=== PATIENT | male | born 1960 | race Caucasian/White ===

== ENCOUNTER → 2017-04-28 | Day surgery (SDC) | payer OTHER ==
[2017-04-21 13:10] VITALS: Ht 167.6 cm; Wt 79.5 kg
[~2017-04-28] VITALS: Ht 167.6 cm; Wt 79.5 kg
[~2017-04-28] MED LIST: ASPCH81X PO; CHOL1TAB76 PO; FURO-85 PO; LIDOCAINE HCL 2% 2 ML VIAL (20MG/ML) ONE; MYCO360T PO; OMEP20CA9 PO; PRED-301 PO; PROPOFOL IV EMULSION 10 MG/ML 20 ML VIAL IV ONE; SODIUM CHLORIDE 0.9% 500ML 500 ML IV ONE; TACR1CAP PO
--- NOTE | 2017-04-28 08:51 | Endo History and Physical ---
History & Physical Date of Service: Apr 28, 2017. Chief Complaint: screening,history of transplant Referring Physician: Dr. Guy Thomson History of Present Illness family history Past Medical History Diabetes, Arthritis, Reflux, Sleep Apnea, Hypertension, Kidney Disease, Other Past Surgical History Hx Cardiac Surgery: Yes (HEART CATH X 2 PRIOR TO TX/NO STENTS PLACED) Hx Internal Defibrillator: No Hx Pacemaker: No Hx Abdominal Surgery: Yes (STEFAN) Hx of Implantable Prosthesis: No Hx Post-Op Nausea and Vomiting: No Hx Cancer Surgery: No Hx Thoracic Surgery: No Hx Orthopedic: No (RT LIEN) Hx Urinary Tract Surgery: Yes (PANCREAS AND KIDNEY(X2) TRANSPLANT) Family History Colon CA Social History Smoking Status: Never Smoker Hx Substance Use: No Hx Alcohol Use: Yes (OCCASIONALLY) Allergies Coded Allergies: Cephalexin (Verified Allergy, Unknown, RASH, 04/21/17) Penicillins (Verified Allergy, Unknown, RASH, 04/21/17) Current Medications Reported Home Medications Medications Dose Route/Sig Max Daily Dose Days Date Category Dose Instructions Prograf (Tacrolimus) 1 Mg Cap 1 Mg PO DIRECTED 04/21/17 Reported TAKES 1 TAB BID (5XWK) TAKES WEDNESDAY AND FRIDAYS 1TAB IN AM AND 0.5TAB IN PM Prednisone 5 Mg Tab 5 Mg PO HS 04/21/17 Reported Aspirin Chewable (Aspirin) 81 Mg Chew 81 Mg PO HS 04/21/17 Reported Lasix (Furosemide) 20 Mg Tab 20 Mg PO QAM 02/24/17 Reported D 2000 (Cholecalciferol) 2,000 Unit Tab 2,000 Units PO BID 02/24/17 Reported Myfortic (Mycophenolate Sodium) 360 Mg Tab 360 Mg PO TID 06/24/15 Reported Prilosec (Omeprazole) 20 Mg Cap 20 Mg PO DAILY PRN 03/19/12 Reported Vital Signs Weight (Kilograms): 79.55 Height (Feet): 5 Height (Inches): 6 Date Time Temp Pulse Resp B/P (MAP) Pulse Ox O2 Delivery O2 Flow Rate FiO2 04/28/17 08:15 36.4 64 20 151/68 (95) 99 Room Air Physical Exam General Appearance: WD/WN, no apparent distress Assessment and Plan colonoscopy today
--- NOTE | 2017-04-28 09:20 | Discharge Instructions ---
Endoscopy Patient Instructions Date / Procedure(s) Performed Apr 28, 2017. Colonoscopy Allergy Information Coded Allergies: Cephalexin (Verified Allergy, Unknown, RASH, 04/21/17) Penicillins (Verified Allergy, Unknown, RASH, 04/21/17) Discharge Date / Findings Apr 28, 2017. normal colon Medication Instructions Stopped Medication(s): stopped ASA Wednesday Restart Stopped Medication(s): OK to resume all medications as above Provider Instructions Activity Restrictions - No exercising or heavy lifting for 24 hours. - Do not drink alcohol the day of the procedure. - Do not drive a car or operate machinery until the day after the procedure. - Do not make any important decisions or sign important papers in 24 hours after the procedure. Following Day: - Return to full activity which may include returning to work/school. Diet Start your diet with liquids and light foods (jello, soup, juice, toast). Then eat your usual diet if not nauseated. Treatment For Common After Affects For mild abdominal pain, bloating, or excessive gas: - Rest - Eat lightly - Lie on right side Follow-Up Information Follow-up with Dr. Guy Thomson as scheduled Anesthesia Information What You Should Know You have had a procedure that required some medicine to reduce anxiety and discomfort. This treatment is called moderate sedation. After receiving the treatment, you may be sleepy, but you will be able to breathe on your own. The effects of the treatment may last for several hours. Follow these instructions along with Activity/Diet recommendations noted above: * Do NOT do anything where dizziness or clumsiness would be dangerous. * Rest quietly at home today, then you can be up and about tomorrow. * Have a responsible person stay with you the rest of today. * You may have had an I.V. today. If so, you may take the dressing off later today. Recommendations Call your doctor if: * Trouble breathing * Continuous vomiting for more than 24 hours * Temperature above 101 degrees * Severe abdominal pain or bloating * Pain not relieved by pain medicine ordered * There is increased drainage or redness from any incision * A large amount of rectal bleeding greater than 2-3 tablespoons. (If you had a polyp/s removed or have hemorrhoids, a small amount of blood - from the rectum is to be expected.) * You have any unanswered questions or concerns. IN THE EVENT OF A SERIOUS EMERGENCY, GO TO THE NEAREST EMERGENCY ROOM Your discharge instructions were prepared by provider Acacia Carr. Patient Instructions Signature Page Kwame Jewell Patient (or Guardian) Signature/Date: I have read and understand the instructions given to me by my caregivers. Caregiver/RN/Doctor Signature/Date: The above-named patient and/or guardian has received patient instructions on this date. + Original Patient Signature Page (only) stays with chart. Please make copy for patient.
--- NOTE | 2017-04-28 09:24 | GI REPORT ---
Procedure Date: 04/28/2017 8:12 AM Procedure: Colonoscopy Indications: Screening in patient at increased risk: Colorectal cancer in mother 60 or older; history of kidney and pancreas transplant Medicines: Propofol per Anesthesia Complications: No immediate complications. Estimated blood loss: None. Estimated Blood Loss: Estimated blood loss: none. Procedure: Pre-Anesthesia Assessment: - Prior to the procedure, a History and Physical was performed, and patient medications, allergies and sensitivities were reviewed. The patient's tolerance of previous anesthesia was reviewed. - The risks and benefits of the procedure and the sedation options and risks were discussed with the patient. All questions were answered and informed consent was obtained. - Patient identification and proposed procedure were verified prior to the procedure by the physician and the nurse. The procedure was verified in the pre-procedure area in the procedure room. - Mental Status Examination: alert and oriented. Airway Examination: normal oropharyngeal airway and neck mobility. Respiratory Examination: clear to auscultation. CV Examination: normal. Abdominal Examination: bowel sounds present, abdomen soft and non-tender, no masses or organomegaly noted. - ASA Grade Assessment: III - A patient with severe systemic disease. After I obtained informed consent, the scope was passed under direct vision. Throughout the procedure, the patient's blood pressure, pulse, and oxygen saturations were monitored continuously. The Scope was introduced through the anus and advanced to the cecum, identified by appendiceal orifice and ileocecal valve. The colonoscopy was performed without difficulty. The patient tolerated the procedure well. The quality of the bowel preparation was good. Findings: The perianal and digital rectal examinations were normal. Pertinent negatives include normal sphincter tone and no palpable rectal lesions. The entire examined colon appeared normal on direct and retroflexion views. Impression: - The entire examined colon is normal on direct and retroflexion views. - No specimens collected. Recommendation: - Repeat colonoscopy in 3 years for screening purposes. - Return to referring physician as previously scheduled. - Discharge patient to home. Acacia Carr D.O. Acacia Carr DO 04/28/2017 9:22:57 AM This report has been signed electronically. Note Initiated On: 04/28/2017 8:12 AM I attest to the content of the Intraoperative Record and orders documented therein, exceptions below
[2017-04-28 09:52] VITALS: BP 153/71; PULSE 70; O2SAT 99
--- NOTE | 2017-04-28 09:58 | Anesthesiology Progress Note ---
Anesthesia Post Op Note Date & Time Apr 28, 2017 at 09:58 Vital Signs Pain Intensity: 0 Vital Signs Past 12 Hours Date Time Temp Pulse Resp B/P (MAP) Pulse Ox O2 Delivery O2 Flow Rate FiO2 04/28/17 09:52 70 20 153/71 (98) 99 Room Air 04/28/17 09:38 70 20 139/70 (93) 100 Room Air 04/28/17 09:23 70 16 109/51 (70) 98 Room Air 04/28/17 08:15 36.4 64 20 151/68 (95) 99 Room Air Notes Mental Status: alert / awake / arousable, participated in evaluation Pt Amnestic to Procedure: Yes Nausea / Vomiting: adequately controlled Pain: adequately controlled Airway Patency, RR, SpO2: stable & adequate BP & HR: stable & adequate Hydration State: stable & adequate Anesthetic Complications: no major complications apparent
== END | disposition home or self-care (01) ==
LOC: C.GI 07:31
PROVIDERS: ATTEND Internal Medicine
DX: Z12.11 Encounter for screening for malignant neoplasm of colon (principal); K21.9 Gastro-esophageal reflux disease without esophagitis; E11.9 Type 2 diabetes mellitus without complications; G47.30 Sleep apnea, unspecified; N28.9 Disorder of kidney and ureter, unspecified; Z79.899 Other long term (current) drug therapy; Z79.82 Long term (current) use of aspirin; Z79.52 Long term (current) use of systemic steroids; Z94.83 Pancreas transplant status; Z94.0 Kidney transplant status

== ENCOUNTER 2017-07-04 20:13 | Inpatient (IN) | payer OTHER ==
[~2017-07-04] VITALS: Ht 167.6 cm; Wt 80.4 kg
[~2017-07-04 20:13] MED LIST changes: -CHOL1TAB76 PO; -LIDOCAINE HCL 2% 2 ML VIAL (20MG/ML) ONE; -OMEP20CA9 PO; -PROPOFOL IV EMULSION 10 MG/ML 20 ML VIAL IV ONE; -SODIUM CHLORIDE 0.9% 500ML 500 ML IV ONE
[2017-07-04] MEDS ORDERED: OMEP20CA9 PO (20:19)
[2017-07-04] MEDS ORDERED: PIOG1TAB25 PO (20:38)
[2017-07-04] MEDS ORDERED: MRLP527 PO (20:38)
[2017-07-04] MEDS ORDERED: LSX20 PO (20:38)
[2017-07-04] MEDS ORDERED: PRED-301 PO (20:38)
[2017-07-04] MEDS ORDERED: DOCU100C PO (20:38)
[2017-07-04] MEDS ORDERED: ASPI81TA28 PO (20:40)
[2017-07-04] MEDS ORDERED: TACR0.5C3 PO (20:44)
[2017-07-04] MEDS ORDERED: TACR1CAP PO (20:44)
[2017-07-04] MEDS ORDERED: SODIUM CHLORIDE 0.9% 1000ML 1,000 ML IV ONE (20:45)
[2017-07-04] MEDS ORDERED: ALBUT/IPRATROP 3MG/0.5MG NEB 3 ML VIAL INH STA (20:48)
[2017-07-04] MEDS ORDERED: METHYLPREDNISOLONE 125 MG VIAL IV STA (21:07)
--- NOTE | 2017-07-04 21:08 | DIAGNOSTIC IMAGING REPORT ---
CHEST ONE VIEW PORTABLE CLINICAL HISTORY: cough fever immunosuppressed COMPARISON STUDY: 02/24/2017 FINDINGS: The cardiac and mediastinal contours are normal. There is no evidence of focal pulmonary consolidation. There is no evidence of failure. No pleural effusions are visualized.[ There is minor left basilar atelectasis. There is a vascular stent present in the left subclavian region. IMPRESSION: No active disease in the chest. Electronically signed by: Cr Sierra M.D. 07/04/2017 9:07 PM Dictated Date/Time: 07/04/2017 9:06 PM
[2017-07-04] MEDS ORDERED: LEVAQUIN 750MG / 150ML D5W IV ONE (21:15)
[2017-07-04] MEDS ORDERED: ACETAMINOPHEN 500 MG TAB PO STA (21:44)
[2017-07-04] MEDS ORDERED: AZTREONAM IV 1,000 MG in DEXTROSE 5% 100ML 100 ML IV STA (21:48)
[2017-07-04] MEDS ORDERED: VANCOMYCIN IV 1,000 MG in SODIUM CHLORIDE 0.9% 250ML 250 ML IV STA (21:48)
[2017-07-04 21:59] LABS: HEMATOCRIT 42.8 % (42-52); HEMOGLOBIN 14.4 g/dL (14.0-18.0); MEAN CELL VOLUME 90.7 fL (80-100); MEAN CORPUSCULAR HEMOGLOBIN 30.5 pg (25-34); MEAN CORPUSCULAR HGB CONC 33.6 g/dl (32-36); MEAN PLATELET VOLUME 10.4 fL (7.4-10.4); PLATELET COUNT 143 K/uL (130-400); RED CELL DISTRIBUTION WIDTH CV 13.6 % (11.5-14.5); RED CELL DISTRIBUTION WIDTH SD 45.1 fL (36.4-46.3); WHITE BLOOD COUNT 10.74 K/uL (4.8-10.8)
[2017-07-04 21:59] LABS: INFLUENZA A PCR Neg for Influ A (NEG); INFLUENZA B PCR Neg for Influ B (NEG)
[2017-07-04] MEDS ORDERED: VANCOMYCIN CONSULT ACTIVE PRN ×2 (22:00→23:45)
[2017-07-04 22:09] LABS: ALBUMIN 3.8 gm/dl (3.4-5.0); CALCIUM 9.2 mg/dl (8.5-10.1); CREATININE 1.43 mg/dl (0.60-1.40); POTASSIUM 3.9 mmol/L (3.5-5.1)
--- NOTE | 2017-07-04 22:11 | EMERGENCY ROOM VISIT NOTE ---
History First contact with patient: 20:21 Chief Complaint: FEVER Stated Complaint: FEVER, COUGH, CONGESTION History of Present Illness The patient is a 56 year old male who presents to the Emergency Room with complaints of productive cough and fever that has been brewing for the last week. His symptoms started with a nonproductive cough. He developed a fever earlier this week. It was as high as 101F. The patient has not taken any [id number] medications for his symptoms. He is feeling slightly short of breath. He denies any nausea or vomiting. His last bowel movement was today and reportedly regular. He denies any urinary symptoms. The patient has a history of a renal transplant in 2011 and a pancreatic transplant in 2004. He takes Prograf. Review of Systems 10 system review performed and negative unless noted in HPI or below Past Medical/Surgical History Medical Problems: (1) Diabetes mellitus type 1 (2) ESRD (end stage renal disease) on dialysis (3) Hypertension (4) Indigestion (5) Sepsis (6) Vision loss Surgical Problems: (1) History of kidney transplant (2) History of pancreas transplant Family History FHx: diabetes FHx: heart disease FHx: hypertension FHx: kidney disease/stones Social History Smoking Status: Never Smoker Alcohol Use: none Marital Status: Housing Status: lives with family Occupation Status: disabled Current/Historical Medications Scheduled Aspirin (Aspirin Ec), 81 MG PO DAILY Cholecalciferol (D 1999), 2,000 INTER.UNIT PO BID Furosemide (Furosemide), 20 MG PO QAM Mycophenolate Sodium (Myfortic), 360 MG PO TID Pioglitazone Hcl (Pioglitazone Hcl), 15 MG PO QAM Prednisone (Prednisone), 5 MG PO HS Tacrolimus (Prograf), 1 MG PO QAM Tacrolimus (Prograf), 0.5 MG PO 3XWK Tacrolimus (Prograf), 1 MG PO 4XWK Scheduled PRN Docusate Sodium (Stool Softener), 100 MG PO BID PRN for Constipation Omeprazole (Prilosec), 20 MG PO DAILY PRN for Acid Reflux Polyethylene (Polyethylene Glycol 3350), 17 GM PO DAILY PRN for Constipation Physical Exam Vital Signs Date Time Temp Pulse Resp B/P (MAP) Pulse Ox O2 Delivery O2 Flow Rate FiO2 07/04/17 22:24 94 07/04/17 22:18 92 22 135/67 95 Room Air 07/04/17 20:15 38.8 88 18 112/59 92 Room Air Physical Exam GENERAL: 56-year-old male, appears older than stated age, acutely ill in appearance, SKIN: The skin was warm HEAD: Normocephalic atraumatic. MOUTH: Mucous membranes moderately dry. Slight exudate noted on the tongue. Tonsils are not enlarged. Pharynx without erythema or exudate. Uvula midline. Airway patent. Tongue does not deviate. NECK: Supple without nuchal rigidity. No lymphadenopathy. Cervical spine is nontender. No JVD. HEART: Regular rate and rhythm without murmurs gallops or rubs. LUNGS: Mild diffuse wheezing throughout. Positive tachypnea. Rhonchorous breath sounds at the right base. ABDOMEN: Positive bowel sounds x 4.Soft, nontender, without organomegaly. No guarding or rebound tenderness. MUSCULOSKELETAL: No muscle atrophy, erythema, or edema noted. Strength 5/5 throughout. NEURO: Patient was alert and oriented to person place and time. Normal sensation to touch. No focal neurological deficits. Medical Decision & Procedures ER Provider Diagnostic Interpretation: Chest x-ray IMPRESSION: No active disease in the chest. Electronically signed by: Cr Sierra M.D. 07/04/2017 9:07 PM Dictated Date/Time: 07/04/2017 9:06 PM Laboratory Results 07/04/17 21:38 Red Blood Count 4.72, Mean Corpuscular Volume 90.7, Mean Corpuscular Hemoglobin 30.5, Mean Corpuscular Hemoglobin Concent 33.6, Mean Platelet Volume 10.4, Neutrophils (%) (Auto) 82.7, Lymphocytes (%) (Auto) 6.2, Monocytes (%) (Auto) 10.6, Eosinophils (%) (Auto) 0.0, Basophils (%) (Auto) 0.0, Neutrophils # (Auto ) 8.88, Lymphocytes # (Auto) 0.67, Monocytes # (Auto) 1.14, Eosinophils # (Auto ) 0.00, Basophils # (Auto) 0.00 07/04/17 21:38 Test 07/04/17 21:13 07/04/17 21:38 07/04/17 22:45 Influenza Type A (RT-PCR) Neg for Influ A (NEG) Influenza Type B (RT-PCR) Neg for Influ B (NEG) White Blood Count 10.74 K/uL (4.8-10.8) Red Blood Count 4.72 M/uL (4.7-6.1) Hemoglobin 14.4 g/dL (14.0-18.0) Hematocrit 42.8 % (42-52) Mean Corpuscular Volume 90.7 fL (80-100) Mean Corpuscular Hemoglobin 30.5 pg (25-34) Mean Corpuscular Hemoglobin Concent 33.6 g/dl (32-36) Platelet Count 143 K/uL (130-400) Mean Platelet Volume 10.4 fL (7.4-10.4) Neutrophils (%) (Auto) 82.7 % Lymphocytes (%) (Auto) 6.2 % Monocytes (%) (Auto) 10.6 % Eosinophils (%) (Auto) 0.0 % Basophils (%) (Auto) 0.0 % Neutrophils # (Auto) 8.88 K/uL (1.4-6.5) Lymphocytes # (Auto) 0.67 K/uL (1.2-3.4) Monocytes # (Auto) 1.14 K/uL (0.11-0.59) Eosinophils # (Auto) 0.00 K/uL (0-0.5) Basophils # (Auto) 0.00 K/uL (0-0.2) RDW Standard Deviation 45.1 fL (36.4-46.3) RDW Coefficient of Variation 13.6 % (11.5-14.5) Immature Granulocyte % (Auto) 0.5 % Immature Granulocyte # (Auto) 0.05 K/uL (0.00-0.02) Red Blood Cell Morphology Unremarkable Anion Gap 12.0 mmol/L (3-11) Est Creatinine Clear Calc Drug Dose 57.5 ml/min Estimated GFR () 63.0 Estimated GFR (Non- 54.4 BUN/Creatinine Ratio 14.0 (10-20) Lactic Acid Level 1.4 mmol/L (0.4-2.0) Calcium Level 9.2 mg/dl (8.5-10.1) Total Bilirubin 1.0 mg/dl (0.2-1) Aspartate Amino Transf (AST/SGOT) 16 U/L (15-37) Alanine Aminotransferase (ALT/SGPT) 18 U/L (12-78) Alkaline Phosphatase 79 U/L (45-117) C-Reactive Protein 5.41 mg/dl (0-0.29) Total Protein 7.4 gm/dl (6.4-8.2) Albumin 3.8 gm/dl (3.4-5.0) Globulin 3.6 gm/dl (2.5-4.0) Albumin/Globulin Ratio 1.0 (0.9-2) Lipase 70 U/L (73-393) Medications Administered Medications (Trade) Dose Ordered Sig/Refugio Route Start Time Stop Time Status Last Admin Dose Admin Sodium Chloride 1,000 ml @ 999 mls/hr Q1H1M ONCE IV 07/04/17 20:45 07/04/17 21:45 DC 07/04/17 21:54 999 MLS/HR Albuterol/ Ipratropium (Duoneb) 3 ml ONE STAT INH 07/04/17 20:48 07/04/17 20:49 DC 07/04/17 21:54 3 ML Methylprednisolone Sodium Succinate (Solu-Medrol IV) 125 mg NOW STAT IV 07/04/17 21:07 07/04/17 21:08 DC 07/04/17 21:57 125 MG Levofloxacin (Levaquin / D5W) 750 mg NOW ONCE IV 07/04/17 21:15 07/04/17 21:16 DC 07/04/17 21:58 750 MG Acetaminophen (Tylenol Tab) 1,000 mg NOW STAT PO 07/04/17 21:44 07/04/17 21:45 DC 07/04/17 22:14 1,000 MG ECG Per My Interpretation Indication: other Rate (beats per minute): 78 Rhythm: normal sinus Change: no significant change ED Course Patient was seen and examined Vital signs including blood pressure were reviewed medications list was verified with patient Labs were obtained, and a saline lock was established The patient was put on a monitor. An EKG was performed and reviewed. The patient was given an albuterol/ipratropium treatment. He was given Solu- Medrol 125 mg IV. He was given Levaquin 750 mg IV, aztreonam 1 g IV and vancomycin 1 g IV The case was discussed with my supervising physician who personally evaluated the patient. Upon reevaluation, the patient was feeling no better. I thoroughly reviewed the results with the patient and the patient's significant other. They voiced understanding. I discussed the case with case management and subsequently the [facility] service. They kindly agreed to keep the patient for further workup and treatment Medical Decision Differential diagnosis: Influenza, other viral syndrome, sepsis, pneumonia This patient is a 56-year-old male, history of renal/pancreatic transplant, the presents with fever and cough. On exam, he was acutely ill and febrile. Oxygen was 92% on room air. Rhonchorous breath sounds noted at the right base. His workup reveals borderline leukocytosis. Renal function is slightly elevated. Baseline is usually 1.3. Today his creatinine is 1.4. He appears dehydrated. Chest x-ray was negative. His CRP is significantly elevated. Influenza was also negative. I believe this patient likely has a viral illness and early pneumonia. Given his immunocompromise state, I do not feel comfortable sending this patient home. He will be admitted for Sirs from a respiratory source. This chart was completed in part utilizing [employer] Speech Voice Recognition software. Attempts were made to minimize the grammatical errors, random word insertions, pronoun errors and incomplete sentences. Any formal questions or concerns about the content, text or information contained within the body of this dictation should be directly addressed to the provider for clarification. Medication Reconcilliation Current Medication List: was personally reviewed by me Blood Pressure Screening Patient's blood pressure: Normal blood pressure Impression Primary Impression: SIRS (systemic inflammatory response syndrome) Departure Information Referrals Guy Thomson M.D. (PCP) Patient Instructions My [facility]
[2017-07-04 22:12] LABS: TOTAL PROTEIN 7.4 gm/dl (6.4-8.2)
[2017-07-04] MEDS ORDERED: CHOL1TAB76 PO (22:15)
[2017-07-04 22:52] LABS: IG# 0.05 K/uL (0.00-0.02); LYMPH % 6.2 %; LYMPH ABS # 0.67 K/uL (1.2-3.4); MONO % 10.6 %; MONO ABS # 1.14 K/uL (0.11-0.59); NEUT % 82.7 %; NEUT ABS # 8.88 K/uL (1.4-6.5)
[2017-07-04] MEDS ORDERED: POLYETHYLENE (MIRALAX) 17 GM PACK PO PRN (23:30)
[2017-07-04] MEDS ORDERED: ONDANSETRON INJ 2 MG/ML 2 ML VIAL IV PRN (23:30)
[2017-07-04] MEDS ORDERED: DOCUSATE SODIUM 100 MG CAP PO PRN (23:30)
[2017-07-04] MEDS ORDERED: ACETAMINOPHEN 325 MG TAB PO PRN (23:30)
[2017-07-04] MEDS ORDERED: HYDROCODONE/HOMATROPINE SYRUP 5MG/1.5MG 5ML UDP PO ONE (23:34)
[2017-07-04] MEDS ORDERED: HYDROCODONE/HOMATROPINE SYRUP 5MG/1.5MG 5ML UDP PO PRN (23:45)
[2017-07-04] MEDS ORDERED: VANCOMYCIN IV 2,000 MG in SODIUM CHLORIDE 0.9% 500ML 500 ML IV STA (23:56)
[2017-07-05] MEDS ORDERED: IV FLUIDS COMPLETED PRN (01:00)
[2017-07-05 01:15] VITALS: BP 122/69; PULSE 84; TEMP 36.7; O2SAT 93; Ht 167.6 cm; Wt 80.4 kg
--- NOTE | 2017-07-05 01:54 | HISTORY & PHYSICAL EXAMINATION ---
DATE OF ADMISSION: 07/04/2017 PRIMARY CARE PHYSICIAN: Dr. Thomson. CHIEF COMPLAINT: Ongoing cough since Wednesday last with generalized weakness and tiredness. HISTORY OF PRESENT COMPLAINT: He is a 56-year-old immunocompromised patient secondary to renal and pancreatic transplant in the past. Apparently, he has been complaining of a cough that has been going on since Wednesday. He saw primary care physician, was given Z-MIKIE. He could take only 2 or 3 tablets, but the condition did not get any better with ongoing cough and lack of energy. He came to the Emergency Room for further evaluation. He was noted to have a fever of 101. In the ER, he was hemodynamically stable. He is still coughing a lot with the shortness of breath, but no decrease in saturation. His apparent blood test came back fairly unremarkable except creatinine is slightly high, but no other significant findings, but given the history of immunocompromised condition, he was started with broad-spectrum antibiotic and blood and urine culture was sent for further evaluation. PAST MEDICAL HISTORY: Significant for kidney and pancreatic transplant status, diabetes 1 causing renal disease, esophageal reflux, hyperlipidemia, hypertension, and also history of melanoma skin problem. PAST SURGICAL HISTORY: Significant for status post renal transplant, status post pancreatic transplant and total hip replacement on the right side. FAMILY HISTORY: Father has diabetes and mother has diabetes. Mother has heart disorder and hypertension as well. SOCIAL HISTORY: He is . He lives with his . He is legally blind. He uses alcohol occasionally. He has been reasonably ambulant. REVIEW OF SYSTEMS: Total 10-point review of system unremarkable. ALLERGIES: CEPHALEXIN AND PENICILLINS. MEDICATIONS: As an outpatient, he has been on furosemide 20 mg daily, aspirin 81 mg daily, cholecalciferol 2000 units daily, docusate sodium 1 tablet twice daily, Myfortic 360 mg 3 times daily, omeprazole 20 mg daily, pioglitazone 15 mg daily, MiraLax as directed, prednisone 5 mg daily, Prograf 0.5 mg 3 times a week, Prograf 1 mg 4 times a week, Prograf 1 mg q.a.m. PHYSICAL EXAMINATION: GENERAL: On examination in the Emergency Room, he was not having any acute distress. He was minimally short of breath at rest and no wheezing. He looked flushed. VITAL SIGNS: Temperature 38.8, pulse 94, blood pressure 135/67, saturation 95% on room air. HEENT: Unremarkable. NECK: Supple, no JVD, no bruit. CHEST: Very occasional rhonchi at the back. No crackles. HEART: S1, S2 regular. ABDOMEN: Soft, benign, nontender, no organomegaly. Bowel sounds present. EXTREMITIES: Negative for any edema. MUSCULOSKELETAL: Did not show acute arthritis. CENTRAL NERVOUS SYSTEM: Alert, awake, oriented x3 and no focal sensory and/or motor deficit appreciated. LABORATORY DATA: Noted today white count of 10.74, H&H 14.4/42.8, platelet was 143. Sodium 136, potassium 3.9, chloride 102, carbon dioxide 22, BUN 20, creatinine 1.43. Random glucose 152. Lactic acid 1.4. C-reactive protein 5.41 and procalcitonin 0.42. LFTs unremarkable. UA examination unremarkable. Influenza A and B negative. Chest x-ray no active disease in the chest. IMPRESSION AND PLAN: 1. Acute bronchitis with cough and whitish phlegm production since Wednesday. Being immunocompromised, he was started with intravenous vancomycin, Levaquin and also aztreonam. He did not finish the course of Z-MIKIE as an outpatient. Blood and urine culture has been sent. He meets the systemic inflammatory response syndrome criteria on admission. 2. Status post kidney and pancreatic transplant on immunocompromised suppressant medications including prednisone. We will continue with those at this time. 3. Acute kidney injury secondary to dehydration. We will give adequate amount of IV fluid and monitor PRP while in the hospital. 4. Diabetes on oral medications. Continue with that and will put him on sliding scale coverage while in the hospital. Hypertension is controlled. Gastrointestinal prophylaxis with proton-pump inhibitor. Deep venous thrombosis prophylaxis with heparin. Code status, full code. In my clinical assessment, the beneficiary meets criteria as per CMS for 2 midnights' stay in the hospital. MTDD
[2017-07-05] MEDS ORDERED: SODIUM CHLORIDE 0.9% 1000ML 1,000 ML IV SCH (02:00)
[2017-07-05] MEDS ORDERED: GLUCAGON FOR INJ 1 MG VIAL SQ PRN (07:15)
[2017-07-05] MEDS ORDERED: GLUCOSE 40% GEL 15 GM TUBE PO PRN (07:15)
[2017-07-05] MEDS ORDERED: DEXTROSE 50% 50 ML SYR IV PRN (07:15)
[2017-07-05] MEDS ORDERED: GLUCOSE 10 TABS/TUBE PO PRN (07:15)
[2017-07-05 07:36] LABS: HEMATOCRIT 43.5 % (42-52); HEMOGLOBIN 14.6 g/dL (14.0-18.0); MEAN CORPUSCULAR HEMOGLOBIN 30.5 pg (25-34); MEAN CORPUSCULAR HGB CONC 33.6 g/dl (32-36); MEAN PLATELET VOLUME 10.8 fL (7.4-10.4); PLATELET COUNT 134 K/uL (130-400); RED CELL DISTRIBUTION WIDTH CV 13.7 % (11.5-14.5); RED CELL DISTRIBUTION WIDTH SD 45.5 fL (36.4-46.3); WHITE BLOOD COUNT 9.51 K/uL (4.8-10.8)
[2017-07-05 07:42] LABS: INR 1.1 (0.9-1.1)
[2017-07-05 07:50] VITALS: BP 148/81; PULSE 72; TEMP 36.4; O2SAT 90
[2017-07-05 08:00] VITALS: O2SAT 90
[2017-07-05] MEDS ORDERED: INSULIN ASPART 100 UNITS/ML 3 ML PEN SC SCH (08:00)
[2017-07-05 08:13] LABS: CALCIUM 8.8 mg/dl (8.5-10.1); CREATININE 1.44 mg/dl (0.60-1.40); PHOSPHORUS 1.9 mg/dl (2.5-4.9); POTASSIUM 4.1 mmol/L (3.5-5.1)
--- NOTE | 2017-07-05 08:32 | DIAGNOSTIC IMAGING REPORT ---
CHEST 2 VIEWS ROUTINE HISTORY: 56 years-old Male r/o Pneumonia acute cough . COMPARISON: Chest radiograph 07/04/2017 TECHNIQUE: PA and lateral views of the chest FINDINGS: Cardiomediastinal and hilar silhouettes are within normal limits. There is no pneumothorax, pleural effusion, focal airspace consolidation or overt pulmonary edema. There is mild diaphragmatic flattening. Mild degenerative changes about the spine and shoulders. Stent graft within the region of the left subclavian vessels noted. Vascular calcifications of the upper abdomen. IMPRESSION: No acute process. The above report was generated using voice recognition software. It may contain grammatical, syntax or spelling errors. Electronically signed by: Ej Castelan M.D. 07/05/2017 8:31 AM Dictated Date/Time: 07/05/2017 8:28 AM
[2017-07-05] MEDS: MYCOPHENOLATE SODIUM 180 MG TAB PO SCH ×2 (08:40→13:43)
[2017-07-05] MEDS ORDERED: HEPARIN SOD 5000 UNIT/0.5 ML CARP SQ SCH (09:00)
[2017-07-05] MEDS ORDERED: TACROLIMUS 1 MG CAP PO SCH (09:00)
[2017-07-05] MEDS ORDERED: VANCOMYCIN IV 1,000 MG in SODIUM CHLORIDE 0.9% 250ML 250 ML IV SCH (09:00)
[2017-07-05] MEDS ORDERED: PIOGLITAZONE TAB 15 MG TAB PO SCH (09:00)
[2017-07-05] MEDS ORDERED: ASPIRIN 81 MG ECTAB PO SCH (09:00)
[2017-07-05] MEDS ORDERED: PANTOprazole SOD 40 MG TAB PO PRN (09:00)
[2017-07-05] MEDS ORDERED: CHOLECALCIFEROL 1000 INTER.UNIT TAB PO SCH (09:00)
[2017-07-05] MEDS ORDERED: AZTREONAM IV SCH (10:00)
[2017-07-05] MEDS ORDERED: DEXTROSE 5% IV SCH (10:00)
[2017-07-05] MEDS: INSULIN ASPART 100 UNITS/ML 3 ML PEN SC SCH ×2 (12:12→17:08)
--- NOTE | 2017-07-05 13:22 | Discharge Instructions ---
Discharge Instructions Date of Service Jul 05, 2017. Admission Reason for Admission: Acute Bronchitis, Immunocompromised Discharge Discharge Diagnosis / Problem: ACUTE BRONCHITIS /HX OF RENAL AND PANCREAS TRANSPLANT ON IMMUNOSUPPRESSION Discharge Goals Goal(s): Improve disease control, Diagnostic testing, Therapeutic intervention Activity Recommendations Activity Limitations: resume your previous activity . Instructions / Follow-Up Instructions / Follow-Up HOSPITAL FOLLOW UP : 07/07/2017 at 12:[address] Bronson Polanco MD [facility] Current Hospital Diet Patient's current hospital diet: Diabetes Type 2 Diet Discharge Diet Recommended Diet: Diabetes Type 2 Diet Pending Studies Studies pending at discharge: no Medical Emergencies . Who to Call and When: Medical Emergencies: If at any time you feel your situation is an emergency, please call 911 immediately. . Non-Emergent Contact Non-Emergency issues call your: Primary Care Provider . . "Provider Documentation" section prepared by Naila Ha. .
[2017-07-05] MEDS ORDERED: LEVALBUTEROL/IPRATROPIUM NEB INH ONE (13:23)
[2017-07-05] MEDS ORDERED: SODIUM PHOSPHATE 3 MMOL/1 ML INFUSION IV STA (13:25)
[2017-07-05] MEDS ORDERED: LEVO-459 PO (13:33)
[2017-07-05] MEDS ORDERED: PRVHFAIN INH (13:33)
--- NOTE | 2017-07-05 13:33 | Pharmacy Progress Note ---
Pharmacy Abx Dose Short Note Date of Service Jul 05, 2017. 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 * Pt was recently started on a ZPak as an outpatient (did not complete course). * Pt was febrile on admission. WBC, lactic acid, procalcitonin WNL * Day #2 of antimicrobial therapy. Plan Vancomycin * Vanc 2000mg (~25mg/kg) x1 dose on admission, then * Vanc 1250 mg (~15mg/kg) IV every 16 hours * Estimated p'kinetic parameters (based on CrCl ~57mL/min): * Ke ~ 0.052/hr t1/2 ~ 13.3hr * Goal trough level for pulmonary infx: 15 to 20 mcg/mL * Currently, vanc is only ordered x48hr (for empiric tx). If vanc is continued beyond 48h, will order a level. Levaquin 750mg IV q24h Azactam 1gm IV q8h Pharmacy will continue to follow and will adjust dose/frequency as necessary. Thank you.
[2017-07-05] MEDS ORDERED: LEVALBUTEROL 1.25MG/0.5ML NEB INH ONE (13:45)
[2017-07-05] MEDS ORDERED: ALBUTEROL HFA 8 GM INHALER INH ONE (13:45)
[2017-07-05] MEDS ORDERED: SODIUM PHOSPHATE INJ 9 MMOL in SODIUM CHLORIDE 0.9% 250ML 250 ML IV ONE (13:45)
[2017-07-05] MEDS ORDERED: IPRATROPIUM BROMIDE NEB SOLN 0.02% 2.5 ML VIAL INH ONE (13:45)
--- NOTE | 2017-07-05 13:54 | Discharge Summary ---
Discharge Summary Date of Service Jul 05, 2017. 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 Medication Reconciliation New Medications: Levofloxacin (Levaquin) 500 Mg Tab 750 MG PO DAILY for 5 Days, #8 TABS Continued Medications: Aspirin (Aspirin Ec) 81 Mg Tab 81 MG PO DAILY Cholecalciferol (D 2000) 2,000 Unit Tab 2000 INTER.UNIT PO BID Docusate Sodium (Stool Softener) 100 Mg Cap 100 MG PO BID PRN for Constipation Mycophenolate Sodium (Myfortic) 360 Mg Tab 360 MG PO TID Omeprazole (Prilosec) 20 Mg Cap 20 MG PO DAILY PRN for Acid Reflux, CAP Pioglitazone Hcl (Pioglitazone Hcl) 15 Mg Tab 15 MG PO QAM Polyethylene (Polyethylene Glycol 3350) 527 Gm Soln 17 GM PO DAILY PRN for Constipation Prednisone (Prednisone) 5 Mg Tab 5 MG PO HS Tacrolimus (Prograf) 1 Mg Cap 1 MG PO QAM, CAP Tacrolimus (Prograf) 0.5 Mg Cap 0.5 MG PO 3XWK, CAP TAKE 0.5 MG IN THE EVENING EVERY WEDNESDAY,WEDNESDAY AND WEDNESDAY Tacrolimus (Prograf) 1 Mg Cap 1 MG PO 4XWK, CAP TAKE 1 MG IN THE EVENING EVERY WEDNESDAY,WEDNESDAY,WEDNESDAY AND WEDNESDAY Discontinued Medications: Furosemide (Furosemide) 20 Mg Tab 20 MG PO QAM Admission Information HPI (per Admitting provider): DATE OF ADMISSION: 07/04/2017 PRIMARY CARE PHYSICIAN: Dr. Thomson. HISTORY OF PRESENT COMPLAINT: He is a 56-year-old immunocompromised patient secondary to renal and pancreatic transplant in the past. Apparently, he has been complaining of a cough that has been going on since Wednesday. He saw primary care physician, was given Z-MIKIE. He could take only 2 or 3 tablets, but the condition did not get any better with ongoing cough and lack of energy. He came to the Emergency Room for further evaluation. He was noted to have a fever of 101. In the ER, he was hemodynamically stable. He is still coughing a lot with the shortness of breath, but no decrease in saturation. His apparent blood test came back fairly unremarkable except creatinine is slightly high, but no other significant findings, but given the history of immunocompromised condition, he was started with broad-spectrum antibiotic and blood and urine culture was sent for further evaluation. PAST MEDICAL HISTORY: Significant for kidney and pancreatic transplant status, diabetes 1 causing renal disease, esophageal reflux, hyperlipidemia, hypertension, and also history of melanoma skin problem. PAST SURGICAL HISTORY: Significant for status post renal transplant, status post pancreatic transplant and total hip replacement on the right side. FAMILY HISTORY: Father has diabetes and mother has diabetes. Mother has heart disorder and hypertension as well. SOCIAL HISTORY: He is . He lives with his . He is legally blind. He uses alcohol occasionally. He has been reasonably ambulant. REVIEW OF SYSTEMS: Total 10-point review of system unremarkable. Physical Exam (per Admitting): PHYSICAL EXAMINATION: GENERAL: On examination in the Emergency Room, he was not having any acute distress. He was minimally short of breath at rest and no wheezing. He looked flushed. VITAL SIGNS: Temperature 38.8, pulse 94, blood pressure 135/67, saturation 95% on room air. HEENT: Unremarkable. NECK: Supple, no JVD, no bruit. CHEST: Very occasional rhonchi at the back. No crackles. HEART: S1, S2 regular. ABDOMEN: Soft, benign, nontender, no organomegaly. Bowel sounds present. EXTREMITIES: Negative for any edema. MUSCULOSKELETAL: Did not show acute arthritis. CENTRAL NERVOUS SYSTEM: Alert, awake, oriented x3 and no focal sensory and/or motor deficit appreciated. Hospital Course No complaint of shortness of breath Has minimal nonproductive cough No fever chills Feels 100% better Wants to be discharged home today Physical exam: General: No sign of distress HEENT: Nonicteric Lungs: Scattered wheeze Abdomen: Soft nontender Extremities no lower extremity edema or rash Neuro: Legally blind, alert awake oriented 3 Last 8 Hrs Date Time Temp Pulse Resp B/P (MAP) Pulse Ox O2 Delivery O2 Flow Rate FiO2 07/05/17 16:34 36.5 84 18 94 Room Air 07/05/17 15:49 36.5 84 18 148/81 (103) 94 Room Air 07/05/17 14:04 84 16 95 Room Air ASSESSMENT AND PLAN ACUTE BRONCHITIS: Presented with cough for 1 week Failed outpatient treatment Abdomen markedly improved overnight No fever or chills, generalized weakness fatigue has resolved Patient feels like himself Antibiotic changed to p.o. Levaquin Stable to be discharged home today STATUS POST KIDNEY AND PANCREAS TRANSPLANT ON IMMUNOSUPPRESSANT -Continue outpatient meds ACUTE KIDNEY INJURY ON CKD STAGE III- Creatinine elevated from approximate baseline Possible secondary to dehydration poor p.o. intake Given IV hydration Patient is asked to hold Lasix Have scheduled lab work checked this week will follow-up with his nephrology Follow nephrology dictation after outpatient lab to resume Lasix DISPOSITION Stable to be discharged home today Total time spent on discharge = 35 mins This includes examination of the patient, discharge planning, medication reconciliation, and communication with other providers. Discharge Instructions Discharge Instructions Date of Service Jul 05, 2017. Admission Reason for Admission: Acute Bronchitis, Immunocompromised Discharge Discharge Diagnosis / Problem: ACUTE BRONCHITIS /HX OF RENAL AND PANCREAS TRANSPLANT ON IMMUNOSUPPRESSION Discharge Goals Goal(s): Improve disease control, Diagnostic testing, Therapeutic intervention Activity Recommendations Activity Limitations: resume your previous activity . Instructions / Follow-Up Instructions / Follow-Up HOSPITAL FOLLOW UP : 07/07/2017 at 12:[address] Bronson Polanco MD Internal Medicine [facility] Current Hospital Diet Patient's current hospital diet: Diabetes Type 2 Diet Discharge Diet Recommended Diet: Diabetes Type 2 Diet Pending Studies Studies pending at discharge: no Medical Emergencies . Who to Call and When: Medical Emergencies: If at any time you feel your situation is an emergency, please call 911 immediately. . Non-Emergent Contact Non-Emergency issues call your: Primary Care Provider . . "Provider Documentation" section prepared by Naila Ha. .
[2017-07-05] MEDS ORDERED: LEVOFLOXACIN 750 MG TAB PO ONE (14:00)
[2017-07-05 14:04] VITALS: PULSE 84; O2SAT 95
[2017-07-05] MEDS ORDERED: IPRATROPIUM BROMIDE NEB SOLN 0.02% 2.5 ML VIAL INH SCH (15:00)
[2017-07-05] MEDS ORDERED: LEVALBUTEROL/IPRATROPIUM NEB INH SCH (15:00)
[2017-07-05] MEDS ORDERED: LEVALBUTEROL 1.25MG/0.5ML NEB INH SCH (15:00)
[2017-07-05 15:49] VITALS: BP 148/81; PULSE 84; TEMP 36.5; O2SAT 94
[2017-07-05 16:34] VITALS: BP 148/81; PULSE 84; TEMP 36.5; O2SAT 94
[2017-07-05] MEDS ORDERED: AZTREONAM IV 1,000 MG in DEXTROSE 5% 100ML IV SCH (18:00)
[2017-07-05] MEDS ORDERED: VANCOMYCIN IV 1,250 MG in SODIUM CHLORIDE 0.9% 250ML 250 ML IV SCH (20:00)
[2017-07-05] MEDS ORDERED: TACROLIMUS 0.5 MG CAP PO SCH (21:00)
[2017-07-05] MEDS ORDERED: LEVOFLOXACIN / D5W 750 MG in PREMIXED IN D5W 150 ML IV SCH (22:00)
[2017-07-06] MEDS ORDERED: TACROLIMUS 1 MG CAP PO SCH (21:00)
== END 2017-07-05 18:19 | disposition home or self-care (01) | DRG 202 ==
LOC: C.EDB 20:14 → C.MS2W 23:52 → ENRESERV 07-05 00:02
PROVIDERS: ADMIT Internal Medicine; ATTEND Hospitalist
DX: J20.9 Acute bronchitis, unspecified (principal); N17.9 Acute kidney failure, unspecified; Z94.0 Kidney transplant status; Z94.83 Pancreas transplant status; E86.0 Dehydration; D89.9 Disorder involving the immune mechanism, unspecified; E10.22 Type 1 diabetes mellitus with diabetic chronic kidney disease; I12.9 Hypertensive chronic kidney disease with stage 1 through stage 4 chronic kidney disease, or unspecified chronic kidney disease; N18.3 Chronic kidney disease, stage 3 (moderate); H54.8 Legal blindness, as defined in USA; Z51.81 Encounter for therapeutic drug level monitoring; Z79.899 Other long term (current) drug therapy; Z79.52 Long term (current) use of systemic steroids; Z79.82 Long term (current) use of aspirin; Z96.641 Presence of right artificial hip joint; Z88.0 Allergy status to penicillin; Z88.1 Allergy status to other antibiotic agents; Z83.3 Family history of diabetes mellitus; Z82.49 Family history of ischemic heart disease and other diseases of the circulatory system; Z84.1 Family history of disorders of kidney and ureter

== ENCOUNTER 2023-11-05 21:20 | Inpatient (IN) ==
--- NOTE | 2023-11-05 21:49 | Emergency Department Note ---
History of Present Illness General Chief complaint: Abdominal Pain Stated complaint: Abdominal Pain, Vomiting Time Seen by Provider: 11/05/23 21:26 History of Present Illness Maximum Pain Intensity: 4 This 62-year-old gentleman with a past medical history of kidney and pancreas transplant remotely, hypertension, type 1 diabetes who presents to the emergency department complaining of left-sided abdominal pain since 5 PM. He also had some nausea and vomiting. He is on multiple normal surgeries. Patient denies chest pain, dyspnea, fevers, cough, congestion, flank pain, diarrhea. He did move his bowels earlier today. Home Medications Medication Instructions Recorded Confirmed Type furosemide 20 mg tablet 20 mg PO QAM 01/16/18 11/05/23 History mycophenolate sodium 360 mg 360 mg PO TID 01/16/18 11/05/23 History tablet,delayed release (Myfortic) sertraline 100 mg tablet 150 mg PO QAM 01/16/18 11/05/23 History aspirin 81 mg tablet,delayed 81 mg PO QAM 07/19/20 11/05/23 History release cyanocobalamin (vitamin B-12) 1,000 mcg PO QAM 07/19/20 11/05/23 History 1,000 mcg tablet (Vitamin B-12) prednisone 5 mg tablet 5 mg PO QAM 07/19/20 11/05/23 History tacrolimus 0.5 mg capsule, 0.5 mg PO HS 07/19/20 11/05/23 History immediate-release (Prograf) insulin degludec 100 unit/mL (3 8 unit subcut HS 01/07/22 11/05/23 History mL) subcutaneous pen (Tresiba FlexTouch U-100 insulin) atorvastatin 20 mg tablet 20 mg PO HS 11/05/23 11/05/23 History insulin aspart See Rx Instructions .Route .COMPLEX 11/05/23 11/05/23 History (niacinamide)(U-100) 100 unit/mL(3 mL) subcutaneous pen (Fiasp FlexTouch U-100 Insulin) metformin 500 mg tablet,extended 500 mg PO UD 11/05/23 11/05/23 History release 24 hr tamsulosin 0.4 mg capsule 0.4 mg PO QAM 11/05/23 11/05/23 History Allergies Allergy/AdvReac Type Severity Reaction Status Date / Time mycophenolate mofetil Allergy Severe KIDNEY Verified 11/05/23 23:48 [From CellCept] FAILED cephalexin Allergy Mild RASH Verified 11/05/23 23:48 Penicillins Allergy Mild RASH Verified 11/05/23 23:48 Past Med/Surg History Problem List (Updated 11/06/23 @ 02:59 by Bethany Saleh PA-C) Small bowel obstruction (Acute) BPH loc w urin obs/LUTS Nocturnal hypoxemia Indigestion (Chronic) Hypertension (Chronic) Vision loss (Chronic) Diabetes mellitus type 1 (Chronic) ESRD (end stage renal disease) on dialysis (Chronic) Acute bronchitis History of kidney transplant (Acute) History of pancreas transplant (Acute) Immunocompromised (Acute) Sepsis Medical History (Updated 11/06/23 @ 02:59 by Bethayn Saleh PA-C) History of hemodialysis Surgical History History of hip replacement History of eye surgery History of cholecystectomy History of colonoscopy Family History Other Cancer Diabetes Heart disease Hypertension Seizure Social History Smoking Status: Never smoker Preferred Language: Lithuanian marital status: Current Living Situation: Spouse current occupational status: disabled Feels Safe at Home: Yes Review of Systems A total of 10 systems reviewed and were otherwise negative Physical Exam Vital Signs Vital Signs - 24 hr 11/05/23 21:25 11/05/23 21:25 11/05/23 21:44 Temperature 36.7 C Temperature Source Oral Pulse Rate 64 68 Pulse Rate [Apical] Pulse Rhythm Regular Pulse Rhythm [Apical] Pulse Strength Normal Pulse Strength [Apical] Respiratory Rate 20 Respiratory Effort / Characteristics Non-Labored Spontaneous Respiratory Depth Normal Respiratory Pattern Regular Blood Pressure 171/68 H Blood Pressure [Left Arm] Blood Pressure Mean 102 Blood Pressure Mean [Left Arm] Blood Pressure Position Sitting Blood Pressure Position [Left Arm] Pulse Oximetry 94 98 Oxygen Delivery Method Room Air Room Air Sepsis Recent Fever Within 48 Hours No Sepsis New/Unexplained Change in Mental Status N/A Sepsis Action Taken by Nursing No Action Required 11/06/23 01:12 Temperature Temperature Source Pulse Rate Pulse Rate [Apical] 68 Pulse Rhythm Pulse Rhythm [Apical] Regular Pulse Strength Pulse Strength [Apical] Normal Respiratory Rate 19 Respiratory Effort / Characteristics Non-Labored Spontaneous Respiratory Depth Normal Respiratory Pattern Regular Blood Pressure Blood Pressure [Left Arm] 195/75 H Blood Pressure Mean Blood Pressure Mean [Left Arm] 115 Blood Pressure Position Blood Pressure Position [Left Arm] Sitting Pulse Oximetry 98 Oxygen Delivery Method Room Air Sepsis Recent Fever Within 48 Hours Sepsis New/Unexplained Change in Mental Status Sepsis Action Taken by Nursing VITALS: Vitals are noted on the nurse's note and reviewed by myself. Vital signs stable. GENERAL: Pleasant gentleman with family present, in no acute distress, nondiaphoretic, well-developed well-nourished. SKIN: Capillary reflex less than 2 seconds. HEENT: Normocephalic. PERRLA. EOMI. Nares patent. Mucous membranes moist. Neck is supple without nuchal rigidity. HEART: Regular rate and rhythm LUNGS: Clear to auscultation bilaterally without wheezes, rales or rhonchi. No retractions or accessory muscle use. ABDOMEN: Positive bowel sounds x 4. Normal tympanic percussion. Soft, tender left upper and lower quadrants, multiple scars present, without masses or organomegaly. Montes sign negative. No guarding or rebound tenderness. no CVA tenderness MUSCULOSKELETAL: No gross musculoskeletal defects. NEURO: Patient was alert and oriented to person place and time. No focal neurological deficits. Course Administered Medications Morphine Sulfate (Morphine Sulfate 4 Mg/Ml 1 Ml Carp\Vial) 4 mg IV Q15M PRN PRN Reason: Pain Stop: 11/19/23 21:43 Last Admin: 11/06/23 02:07 Dose: 4 mg Documented By: Admin: 11/06/23 00:37 Dose: 4 mg Documented By: JOSHUA Discontinued Medications Sodium Chloride (Nss) 1,000 mls @ 999 mls/hr IV .Q1H1M STA Stop: 11/05/23 22:44 Last Infusion: 11/05/23 23:16 Dose: Infused Documented By: Admin: 11/05/23 22:13 Dose: 999 mls/hr Documented By: JOSHUA Prochlorperazine (Compazine) 2 mls @ 1 mls/min IV ONE ONE Stop: 11/06/23 02:04 Last Admin: 11/06/23 02:06 Dose: 1 mls/min Documented By: JOSHUA Ioversol (Optiray 320 100ml) 93 ml IV ONCE ONE Stop: 11/05/23 23:02 Last Admin: 11/05/23 23:02 Dose: 93 ml Documented By: [place] Ondansetron HCl (Ondansetron Inj 2 Mg/Ml 2 Ml Vial) 4 mg IV NOW STA Stop: 11/05/23 21:45 Last Admin: 11/05/23 22:12 Dose: 4 mg Documented By: JOSHUA Ondansetron HCl (Ondansetron Inj 2 Mg/Ml 2 Ml Vial) 4 mg IV NOW STA Stop: 11/06/23 00:41 Last Admin: 11/06/23 00:44 Dose: 4 mg Documented By: JOSHUA Medical Decision Making Medical Records Attestation: I reviewed the patient's medical records. Home Medications Current Medication List: was personally reviewed by me Laboratory Data Attestation: I reviewed the patient's lab results. 11/05/23 22:03 11/05/23 22:03 Lab Results 11/05/23 11/05/23 Range/Units 22:03 23:17 WBC 8.89 (4.8-10.8) K/ul RBC 4.64 L (4.70-6.10) M/uL Hgb 14.0 (14.0-18.0) g/dl Hct 42.2 (42.0-52.0) % MCV 90.9 (80.0-100.0) fL MCH 30.2 (25.0-34.0) pg MCHC 33.2 (32.0-36.0) g/dL RDW Std Deviation 43.9 (36.4-46.3) fL RDW Coeff of Samra 13.2 (11.5-14.5) % Plt Count 158 (130-400) K/uL MPV 10.9 (9.4-12.4) fL Immature Gran % (Auto) 0.3 % Neut % (Auto) 85.4 % Lymph % (Auto) 6.2 % [place] % (Auto) 7.5 % Eos % (Auto) 0.4 % Baso % (Auto) 0.2 % Neut # (Auto) 7.58 H (1.40-6.50) K/uL Lymph # (Auto) 0.55 L (1.20-3.40) K/uL [place] # (Auto) 0.67 H (0.11-0.59) K/uL Eos # (Auto) 0.04 (0.00-0.50) K/uL Baso # (Auto) 0.02 (0.00-0.20) K/uL Immature Gran # (Auto) 0.03 (0.01-0.20) K/uL Sodium 139 (136-145) mmol/L Potassium 4.8 (3.5-5.1) mmol/L Chloride 107 (98-107) mmol/L Carbon Dioxide 26 (21-32) mmol/L Anion Gap 6 (3-11) BUN 26 H (6-23) mg/dl Creatinine 0.98 (0.6-1.4) mg/dl Est Cr Clr Drug Dosing 79.5 ml/min Est GFR ( Amer) 95.4 ml/min Est GFR (Non-Af Amer) 82.3 ml/min BUN/Creatinine Ratio 26.5 H (10-20) Glucose 141 H (70-99(Fasting)) mg/dl Calcium 9.6 (8.6-10.3) mg/dl Magnesium 1.7 (1.7-2.4) mg/dl Total Bilirubin 0.6 (0.2-1.0) mg/dl AST 21 (13-39) U/L ALT 15 (7-52) U/L Alkaline Phosphatase 88 (34-104) U/L Troponin I High Sens 7.6 (0-20) pg/ml Total Protein 7.0 (6.0-8.3) gm/dl Albumin 4.2 (3.4-5.0) gm/dl Globulin 2.8 (2.5-4.0) gm/dl Albumin/Globulin Ratio 1.5 (0.9-2) Lipase 25 (11-82) U/L Urine Color Yellow Urine Appearance Clear (Clear) Urine pH 7.0 (4.5-7.5) Ur Specific [place] 1.016 (1.000-1.030) Urine Protein Negative (Negative) Urine Glucose (UA) Negative (Negative) Urine Ketones Negative (Negative) Urine Blood Negative (Negative) Urine Nitrite Negative (Negative) Urine Bilirubin Negative (Negative) Urine Urobilinogen Negative (Negative) Ur Leukocyte Esterase Negative (Negative) Imaging Data Attestation: I personally reviewed and interpreted this imaging study as follows: Radiologist's Impression: Abdomen/Pelvis CT 11/05/23 21:45 Exam(s): CT ABDOMEN + PELVIS With Contrast IV Amt: 93 cc's optiray 320 EXAM: CT Abdomen and Pelvis With Intravenous Contrast CLINICAL HISTORY: Reason for exam: left abd pain. TECHNIQUE: Axial computed tomography images of the abdomen and pelvis with intravenous contrast. CTDI is 24.89 mGy and DLP is 1271.62 mGy-cm. Automated exposure control was utilized for the study. A dose lowering technique was utilized adhering to the principles of ALARA. CONTRAST: Patient received 93 cc's optiray 320 of IV contrast COMPARISON: CT abdomen/pelvis: 03/19/2012 FINDINGS: Diagnostic sensitivity of the exam is reduced by the motion artifact. Lung bases: Posteriorly linear atelectatic changes/interstitial infiltrates.. No mass. No consolidation. Multiple tortuous/elongated thin-walled vascular structures are seen subcutaneously along the right lateral/posterior chest qiu and at the left paraesophageal region, question peripheral vascular malformation, ABDOMEN: Liver: Mild/moderate steatosis.. No mass. Gallbladder and bile ducts: The gallbladder is surgically absent.. Postcholecystectomy intrahepatic/extrahepatic ductal ectasia. Pancreas: Moderately severe diffusely atrophic pancreas. There is likely in the right lower quadrant pancreatic allograft present with corresponding metallic surgical clips. Spleen: Unremarkable. No splenomegaly. Adrenals: Unremarkable. No mass. Kidneys and ureters: Severely atrophic bilateral [place] kidneys. Redemonstrates a left lower quadrant renal transplant with a 4 mm nonobstructive calculus. No hydronephrosis. Stomach and bowel: A small hiatal hernia. A distended stomach. Multiple fluid/gas filled 4.5 cm dilated small bowel loops/moderate grade small bowel obstruction seen with transition zone within the right midabdomen (series 2 image 51, series 300 image 38). Moderate volume stool/gas in the colon. PELVIS: Appendix: No acute findings in the region of the appendix. Bladder: A distended urinary bladder. No mass. Reproductive: A mildly enlarged prostate gland. ABDOMEN and PELVIS: Intraperitoneal space: No free air. No significant fluid collection. Bones/joints: No acute fracture. No dislocation. Mild lumbar dextroscoliosis. Mild spondylotic changes. Soft tissues: Unremarkable. Left anterior abdominal wall weakness. Vasculature: Extensive calcified atherosclerotic plaques/calcification of the tortuous/elongated normal caliber aortoiliac vasculature and all branch vessels. No abdominal aortic aneurysm. Lymph nodes: Unremarkable. No enlarged lymph nodes.. IMPRESSION: Moderate grade small bowel obstruction with dilated air/fluid-filled small bowel loops as described above. A distended urinary bladder. Lung bases: Posteriorly linear atelectasis/interstitial infiltrates. No consolidation. No pleural effusion. Additional chronic findings as described above. . Electronically signed by: Lea Alexander MD, CARMELAR 11/06/23 02:04 AM [place] Narrative Prior records/ancillary studies reviewed. Triage Nursing notes reviewed. Additional history obtained from family. The patient's history was concerning for abdominal pain. Differential diagnosis: Etiologies such as appendicitis, diverticulitis, PUD, biliary pathology, UTI, pancreatitis, obstruction, mesenteric ischemia, aortic pathology, infections, inflammatory bowel disease, renal colic, as well as others were entertained. Physical examination findings: As above. ER treatment provided: An order was placed for continuous cardiac monitoring. The monitor shows a rate of 60-100 with a sinus rhythm per my Independent interpretation. Zofran, morphine, IV fluids On reassessment the patient felt better. Diagnostics interpreted by me: ECG: Ordered for upper abdominal pain EKG: Normal sinus, normal intervals, no acute ST-T wave changes. Impression normal sinus rhythm independently interpreted by myself The labs Independently Interpreted by myself revealed no worrisome leukocytosis, stable H&H, hyperglycemia without DKA Imaging studies: CT as above Consultation: A consultation was placed with the hospitalist. The case was discussed and diagnostics were reviewed. The patient was evaluated in the ER for further treatment. Exam and history seem consistent with small bowel obstruction. Patient was not vomiting so no NG tube was placed. Medicine was consulted and case discussed. Patient was admitted to the medical service. By the evaluation outlined above emergent etiologies such as appendicitis, diverticulitis, PUD, biliary pathology, UTI, pancreatitis, obstruction, mesenteric ischemia, aortic pathology, infections, inflammatory bowel disease, renal colic, as well as others were deemed relatively unlikely. The pt informed about the findings as listed above. All questions were answered and pleased with the treatment. The chart was completed utilizing [employer] voice recognition software. Grammatical errors, random word insertions, pronoun errors, and incomplete sentences are an occassional consequence of this system due to software limitations, ambient noise, and hardware issues. Any formal questions or concerns about the content, text, or information contained within the body of this dictation should be directly addressed to the physician data assistant for clarification. Impression & Plan Small bowel obstruction Discharge Plan Visit Data Chief Complaint: Abdominal Pain Stated Complaint: Abdominal Pain, Vomiting ED Provider: [facility] Midlevel Provider: Bethany Saleh Discharge Problem: Small bowel obstruction Patient Disposition: Admitted As Inpatient Condition: Good Forms Stand Alone Forms: [facility] Prescriptions Prescriptions: No Action Tresiba FlexTouch U-100 100 unit/mL (3 mL) insulin pen 8 unit subcut HS sertraline 100 mg tablet 150 mg PO QAM furosemide 20 mg tablet 20 mg PO QAM mycophenolate sodium [Myfortic] 360 mg Tablet,Delayed Release (Dr/Ec) 360 mg PO TID prednisone 5 mg tablet 5 mg PO QAM cyanocobalamin (vitamin B-12) [Vitamin B-12] 1,000 mcg Tablet 1,000 mcg PO QAM aspirin 81 mg Tablet,Delayed Release (Dr/Ec) 81 mg PO QAM tacrolimus [Prograf] 0.5 mg Capsule 0.5 mg PO HS Fiasp FlexTouch U-100 Insulin 100 unit/mL (3 mL) insulin pen See Rx Instructions .ROUTE .COMPLEX Rx Instructions: 1:15 CHO RATIO WITH MEALS UP TO 20 UNITS DAILY subcutaneously atorvastatin 20 mg tablet 20 mg PO HS metformin 500 mg tablet extended release 24 hr 500 mg PO UD Rx Instructions: take 2 tablets with breakfast and take 1 tablet with dinner tamsulosin 0.4 mg capsule 0.4 mg PO QAM Referrals Referrals: Odalys Shook MD [Primary Care Provider] -
[2023-11-05] MEDS: ONDANSETRON INJ 2 MG/ML 2 ML VIAL IV STA (22:12)
[2023-11-05] MEDS: SODIUM CHLORIDE 0.9% 1,000 ML IV STA (22:13)
[2023-11-05 22:22] LABS: Basophils # (auto) 0.02 K/uL (0.00-0.20); Basophils % (auto) 0.2 %; Eosinophils # (auto) 0.04 K/uL (0.00-0.50); Eosinophils % (auto) 0.4 %; Hematocrit (blood only) 42.2 % (42.0-52.0); Immature Granulocytes # (auto) 0.03 K/uL (0.01-0.20); Immature Granulocytes % (auto) 0.3 %; Lymphocytes # (auto) 0.55 K/uL (1.20-3.40); Lymphocytes % (auto) 6.2 %; Mean Corpuscular Hemoglobin 30.2 pg (25.0-34.0); Mean Corpuscular Hgb Conc 33.2 g/dL (32.0-36.0); Mean Corpuscular Volume 90.9 fL (80.0-100.0); Mean Platelet Volume 10.9 fL (9.4-12.4); Monocytes # (auto) 0.67 K/uL (0.11-0.59); Monocytes % (auto) 7.5 %; Neutrophils # (auto) 7.58 K/uL (1.40-6.50); Neutrophils % (auto) 85.4 %; Platelet Count 158 K/uL (130-400); RDW Coefficient of Variation 13.2 % (11.5-14.5); RDW Standard Deviation 43.9 fL (36.4-46.3); Red Blood Count 4.64 M/uL (4.70-6.10); White Blood Count 8.89 K/ul (4.8-10.8)
[2023-11-05 22:36] LABS: Albumin Globulin Ratio 1.5 (0.9-2); Albumin Level 4.2 gm/dl (3.4-5.0); BUN Creatinine Ratio 26.5 (10-20); Bilirubin,Total 0.6 mg/dl (0.2-1.0); Calcium 9.6 mg/dl (8.6-10.3); Creatinine Clr Calc Pharmacy 79.5 ml/min; Est GFR (African American) 95.4 ml/min; Est GFR (Non-African American) 82.3 ml/min; Globulin 2.8 gm/dl (2.5-4.0); Magnesium 1.7 mg/dl (1.7-2.4); Potassium 4.8 mmol/L (3.5-5.1)
[2023-11-05 22:43] LABS: Troponin I High Sensitivity 7.6 pg/ml (0-20)
[2023-11-05] MEDS: OPTIRAY 320 100ml IV ONE (23:02)
[2023-11-05 23:44] LABS: Appearance Urine Clear (Clear); Bilirubin Urine Negative (Negative); Blood Urine Negative (Negative); Color Urine Yellow; Glucose Urine UA Negative (Negative); Ketones Urine Negative (Negative); Leukocyte Esterase Urine Negative (Negative); Nitrite Urine Negative (Negative); Protein Urine Negative (Negative); Specific Gravity Urine 1.016 (1.000-1.030); Urobilinogen Urine Negative (Negative)
[2023-11-06] MEDS: MoRPHine SULFATE 4 MG/ML 1 ML CARP\\VIAL IV PRN (00:37)
[2023-11-06] MEDS: ONDANSETRON INJ 2 MG/ML 2 ML VIAL IV STA (00:44)
--- NOTE | 2023-11-06 02:05 | CT Scan Report ---
Exam(s): CT ABDOMEN + PELVIS With Contrast IV Amt: 93 cc's optiray 320 EXAM: CT Abdomen and Pelvis With Intravenous Contrast CLINICAL HISTORY: Reason for exam: left abd pain. TECHNIQUE: Axial computed tomography images of the abdomen and pelvis with intravenous contrast. CTDI is 24.89 mGy and DLP is 1271.62 mGy-cm. Automated exposure control was utilized for the study. A dose lowering technique was utilized adhering to the principles of ALARA. CONTRAST: Patient received 93 cc's optiray 320 of IV contrast COMPARISON: CT abdomen/pelvis: 03/19/2012 FINDINGS: Diagnostic sensitivity of the exam is reduced by the motion artifact. Lung bases: Posteriorly linear atelectatic changes/interstitial infiltrates.. No mass. No consolidation. Multiple tortuous/elongated thin-walled vascular structures are seen subcutaneously along the right lateral/posterior chest qiu and at the left paraesophageal region, question peripheral vascular malformation, ABDOMEN: Liver: Mild/moderate steatosis.. No mass. Gallbladder and bile ducts: The gallbladder is surgically absent.. Postcholecystectomy intrahepatic/extrahepatic ductal ectasia. Pancreas: Moderately severe diffusely atrophic pancreas. There is likely in the right lower quadrant pancreatic allograft present with corresponding metallic surgical clips. Spleen: Unremarkable. No splenomegaly. Adrenals: Unremarkable. No mass. Kidneys and ureters: Severely atrophic bilateral [place] kidneys. Redemonstrates a left lower quadrant renal transplant with a 4 mm nonobstructive calculus. No hydronephrosis. Stomach and bowel: A small hiatal hernia. A distended stomach. Multiple fluid/gas filled 4.5 cm dilated small bowel loops/moderate grade small bowel obstruction seen with transition zone within the right midabdomen (series 2 image 51, series 300 image 38). Moderate volume stool/gas in the colon. PELVIS: Appendix: No acute findings in the region of the appendix. Bladder: A distended urinary bladder. No mass. Reproductive: A mildly enlarged prostate gland. ABDOMEN and PELVIS: Intraperitoneal space: No free air. No significant fluid collection. Bones/joints: No acute fracture. No dislocation. Mild lumbar dextroscoliosis. Mild spondylotic changes. Soft tissues: Unremarkable. Left anterior abdominal wall weakness. Vasculature: Extensive calcified atherosclerotic plaques/calcification of the tortuous/elongated normal caliber aortoiliac vasculature and all branch vessels. No abdominal aortic aneurysm. Lymph nodes: Unremarkable. No enlarged lymph nodes.. IMPRESSION: Moderate grade small bowel obstruction with dilated air/fluid-filled small bowel loops as described above. A distended urinary bladder. Lung bases: Posteriorly linear atelectasis/interstitial infiltrates. No consolidation. No pleural effusion. Additional chronic findings as described above. . Electronically signed by: Lea Alexander MD, CARMELAR 11/06/23 02:04 AM
[2023-11-06] MEDS: PROCHLORPERAZINE 2 ML IV ONE (02:06)
--- NOTE | 2023-11-06 03:30 | History & Physical Report ---
Date of Service November 06, 2023 Assessment & Plan (1) Small bowel obstruction: Plan: 62-year-old male with past med history significant for type 1 diabetes diagnosed at age 15, diabetic chronic kidney disease, hypertension, mild aortic regurgitation, mild CAD, GERD, legally blind, anemia of chronic renal disease, status post kidney transplant with a donor in 2003 which lasted until 2007 and then required hemodialysis until 2011. Status post living related kidney transplant 2011. 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 Patient did not had any bowel obstruction in the past. The pain started at 5 PM. Associated w ith nausea and vomiting. He vomited a couple of times. Last bowel movement was yesterday evening. No fevers. No headache. No runny nose or sore throat. No cough. No chest pain or shortness of breath. Currently hemodynamics are okay. Family is in the room. Small bowel obstruction On CT scan Presents with abdominal pain and nausea and vomiting Currently has abdominal sounds We will keep him n.p.o., IV fluids, IV antiemetics prn IV pain meds as needed KUB in a.m. Surgery consult in a.m. for further recommendations Type 1 diabetes Failed pancreas transplant Lantus and sliding scale Glycemic pharmacy consult Follow blood sugars and HbA1c levels S/p kidney transplant Continue transplant medications Hypertension Continue home Lasix IV hydralazine as needed Will monitor Hyperlipidemia On statin BPH On Flomax Mild CAD On aspirin, and statin Depression On Zoloft Anemia of chronic kidney disease Currently hemoglobin 14 DVT prophylaxis Heparin subcu Disposition Medical floor Full code. History of Present Illness Chief Complaint: Small bowel obstruction Primary Care Provider: Odalys Shook MD 62-year-old male with past med history significant for type 1 diabetes diagnosed at age 15, diabetic chronic kidney disease, hypertension, mild aortic regurgitation, mild CAD, GERD, legally blind, anemia of chronic renal disease, status post kidney transplant with a donor in 2003 which lasted until 2007 and then required hemodialysis until 2012. Status post living related kidney transplant 2011. 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 Patient did not had any bowel obstruction in the past. The pain started at 5 PM. Associated with nausea and vomiting. He vomited a couple of times. Last bowel movement was yesterday evening. No fevers. No headache. No runny nose or sore throat. No cough. No chest pain or shortness of breath. Currently hemodynamics are okay. Family is in the room. Past medical history. As mentioned above Past surgical history. AV access, colonoscopy, incision of abscess to the right leg. Left subclavian vascular stent. Right eye laser surgery. Cholecystectomy. Removal of transplant renal allograft in 2011. Right total hip replacement. Pancreatic transplant. Transposition of kidney. Social history. . No smoking.' social drinking. No drug use. Family history. Mother had cancer. Diabetes. Heart disorder. Hypertension. Father had diabetes. Sister has epilepsy. Allergies Allergy/AdvReac Type Severity Reaction Status Date / Time mycophenolate mofetil Allergy Severe KIDNEY Verified 11/05/23 23:48 [From CellCept] FAILED cephalexin Allergy Mild RASH Verified 11/05/23 23:48 Penicillins Allergy Mild RASH Verified 11/05/23 23:48 Home Medications Medication Instructions Recorded Confirmed Type furosemide 20 mg tablet 20 mg PO [facility] 01/16/18 11/05/23 History mycophenolate sodium 360 mg 360 mg PO TID 01/16/18 11/05/23 History tablet,delayed release (Myfortic) sertraline 100 mg tablet 150 mg PO [facility] 01/16/18 11/05/23 History aspirin 81 mg tablet,delayed 81 mg PO [facility] 07/19/20 11/05/23 History release cyanocobalamin (vitamin B-12) 1,000 mcg PO [facility] 07/19/20 11/05/23 History 1,000 mcg tablet (Vitamin B-12) prednisone 5 mg tablet 5 mg PO [facility] 07/19/20 11/05/23 History tacrolimus 0.5 mg capsule, 0.5 mg PO 07/19/20 11/05/23 History immediate-release (Prograf) insulin degludec 100 unit/mL (3 8 unit subcut 01/07/22 11/05/23 History mL) subcutaneous pen (Tresiba FlexTouch U-100 insulin) atorvastatin 20 mg tablet 20 mg PO 11/05/23 11/05/23 History insulin aspart See Rx Instructions .Route .COMPLEX 11/05/23 11/05/23 History (niacinamide)(U-100) 100 unit/mL(3 mL) subcutaneous pen (Fiasp FlexTouch U-100 Insulin) metformin 500 mg tablet,extended 500 mg PO UD 11/05/23 11/05/23 History release 24 hr tamsulosin 0.4 mg capsule 0.4 mg PO QAM 11/05/23 11/05/23 History Past Med/Surg History Problem List (Updated 11/06/23 @ 02:59 by Bethany Saleh PA-C) Small bowel obstruction (Acute) BPH loc w urin obs/LUTS Nocturnal hypoxemia Indigestion (Chronic) Hypertension (Chronic) Vision loss (Chronic) Diabetes mellitus type 1 (Chronic) ESRD (end stage renal disease) on dialysis (Chronic) Acute bronchitis History of kidney transplant (Acute) History of pancreas transplant (Acute) Immunocompromised (Acute) Sepsis Medical History (Updated 11/06/23 @ 02:59 by Bethany Saleh PA-C) History of hemodialysis Surgical History History of hip replacement History of eye surgery History of cholecystectomy History of colonoscopy Family History Other Cancer Diabetes Heart disease Hypertension Seizure Social History Smoking Status: Never smoker Hx Alcohol Use: Yes Alcohol type: beer Hx Substance Use: No Preferred Language: Andor[place] Communication Ability: Effective Communication Ability Comment: legally blind Patient Services Clerk Required: No Beliefs That Will Affect Care: None marital status: Current Living Situation: Spouse Current Living Situation Comment: one story current occupational status: disabled Feels Safe at Home: Yes and No Review of Systems Review of Systems: All systems reviewed & are unremarkable except as noted in HPI & below Physical Exam Physical Exam: General- Not in distress Head- atraumatic Eyes- Legally blind Neck- supple, no JVD. Lungs- clear to auscultation no wheezing or crackles Heart- regular rate and rhythm; no murmur, no gallop. Abdomen- normal bowel sounds, soft, nontender, no distension. surgical cars seen. Extremities- no pretibial edema, no erythema seen Neuro- alert, oriented no facial palsy; no dysarthria; obeys simple commands Results & Data Results & Data Vital Signs (Past 12 Hours) Vital Signs Temp Pulse Pulse Resp BP BP Pulse Ox 11/06/23 03:00 67 19 198/81 H 97 11/06/23 01:12 68 19 195/75 H 98 11/05/23 21:44 98 11/05/23 21:25 68 11/05/23 21:25 36.7 C 64 20 171/68 H 94 O2 Del Method 11/06/23 03:00 Room Air 11/06/23 01:12 Room Air 11/05/23 21:44 Room Air 11/05/23 21:25 11/05/23 21:25 Room Air Diagnostic Findings Laboratory Results WBC 8.89 K/ul (4.8-10.8) 11/05/23 22:03 RBC 4.64 M/uL (4.70-6.10) L 11/05/23 22:03 Hgb 14.0 g/dl (14.0-18.0) 11/05/23 22:03 Hct 42.2 % (42.0-52.0) 11/05/23 22:03 MCV 90.9 fL (80.0-100.0) 11/05/23 22:03 MCH 30.2 pg (25.0-34.0) 11/05/23 22:03 MCHC 33.2 g/dL (32.0-36.0) 11/05/23 22:03 RDW Std Deviation 43.9 fL (36.4-46.3) 11/05/23 22:03 RDW Coeff of Samra 13.2 % (11.5-14.5) 11/05/23 22:03 Plt Count 158 K/uL (130-400) 11/05/23 22:03 MPV 10.9 fL (9.4-12.4) 11/05/23 22:03 Immature Gran % (Auto) 0.3 % 11/05/23 22:03 Neut % (Auto) 85.4 % 11/05/23 22:03 Lymph % (Auto) 6.2 % 11/05/23 22:03 [place] % (Auto) 7.5 % 11/05/23 22:03 Eos % (Auto) 0.4 % 11/05/23 22:03 Baso % (Auto) 0.2 % 11/05/23 22:03 Neut # (Auto) 7.58 K/uL (1.40-6.50) H 11/05/23 22:03 Lymph # (Auto) 0.55 K/uL (1.20-3.40) L 11/05/23 22:03 [place] # (Auto) 0.67 K/uL (0.11-0.59) H 11/05/23 22:03 Eos # (Auto) 0.04 K/uL (0.00-0.50) 11/05/23 22:03 Baso # (Auto) 0.02 K/uL (0.00-0.20) 11/05/23 22:03 Immature Gran # (Auto) 0.03 K/uL (0.01-0.20) 11/05/23 22:03 Sodium 139 mmol/L (136-145) 11/05/23 22:03 Potassium 4.8 mmol/L (3.5-5.1) 11/05/23 22:03 Chloride 107 mmol/L (98-107) 11/05/23 22:03 Carbon Dioxide 26 mmol/L (21-32) 11/05/23 22:03 Anion Gap 6 (3-11) 11/05/23 22:03 BUN 26 mg/dl (6-23) H 11/05/23 22:03 Creatinine 0.98 mg/dl (0.6-1.4) 11/05/23 22:03 Est Cr Clr Drug Dosing 79.5 ml/min 11/05/23 22:03 Est GFR ( Amer) 95.4 ml/min 11/05/23 22:03 Est GFR (Non-Af Amer) 82.3 ml/min 11/05/23 22:03 BUN/Creatinine Ratio 26.5 (10-20) H 11/05/23 22:03 Glucose 141 mg/dl (70-99(Fasting)) H 11/05/23 22:03 Calcium 9.6 mg/dl (8.6-10.3) 11/05/23 22:03 Magnesium 1.7 mg/dl (1.7-2.4) 11/05/23 22:03 Total Bilirubin 0.6 mg/dl (0.2-1.0) 11/05/23 22:03 AST 21 U/L (13-39) 11/05/23 22:03 ALT 15 U/L (7-52) 11/05/23 22:03 Alkaline Phosphatase 88 U/L (34-104) 11/05/23 22:03 Troponin I High Sens 7.6 pg/ml (0-20) 11/05/23 22:03 Total Protein 7.0 gm/dl (6.0-8.3) 11/05/23 22:03 Albumin 4.2 gm/dl (3.4-5.0) 11/05/23 22:03 Globulin 2.8 gm/dl (2.5-4.0) 11/05/23 22:03 Albumin/Globulin Ratio 1.5 (0.9-2) 11/05/23 22:03 Lipase 25 U/L (11-82) 11/05/23 22:03 Urine Color Yellow 11/05/23 23:17 Urine Appearance Clear (Clear) 11/05/23 23:17 Urine pH 7.0 (4.5-7.5) 11/05/23 23:17 Ur Specific [place] 1.016 (1.000-1.030) 11/05/23 23:17 Urine Protein Negative (Negative) 11/05/23 23:17 Urine Glucose (UA) Negative (Negative) 11/05/23 23:17 Urine Ketones Negative (Negative) 11/05/23 23:17 Urine Blood Negative (Negative) 11/05/23 23:17 Urine Nitrite Negative (Negative) 11/05/23 23:17 Urine Bilirubin Negative (Negative) 11/05/23 23:17 Urine Urobilinogen Negative (Negative) 11/05/23 23:17 Ur Leukocyte Esterase Negative (Negative) 11/05/23 23:17 Impressions Abdomen/Pelvis CT 11/05/23 21:45 Exam(s): CT ABDOMEN + PELVIS With Contrast IV Amt: 93 cc's optiray 320 EXAM: CT Abdomen and Pelvis With Intravenous Contrast CLINICAL HISTORY: Reason for exam: left abd pain. TECHNIQUE: Axial computed tomography images of the abdomen and pelvis with intravenous contrast. CTDI is 24.89 mGy and DLP is 1271.62 mGy-cm. Automated exposure control was utilized for the study. A dose lowering technique was utilized adhering to the principles of ALARA. CONTRAST: Patient received 93 cc's optiray 320 of IV contrast COMPARISON: CT abdomen/pelvis: 03/19/2012 FINDINGS: Diagnostic sensitivity of the exam is reduced by the motion artifact. Lung bases: Posteriorly linear atelectatic changes/interstitial infiltrates.. No mass. No consolidation. Multiple tortuous/elongated thin-walled vascular structures are seen subcutaneously along the right lateral/posterior chest qiu and at the left paraesophageal region, question peripheral vascular malformation, ABDOMEN: Liver: Mild/moderate steatosis.. No mass. Gallbladder and bile ducts: The gallbladder is surgically absent.. Postcholecystectomy intrahepatic/extrahepatic ductal ectasia. Pancreas: Moderately severe diffusely atrophic pancreas. There is likely in the right lower quadrant pancreatic allograft present with corresponding metallic surgical clips. Spleen: Unremarkable. No splenomegaly. Adrenals: Unremarkable. No mass. Kidneys and ureters: Severely atrophic bilateral [place] kidneys. Redemonstrates a left lower quadrant renal transplant with a 4 mm nonobstructive calculus. No hydronephrosis. Stomach and bowel: A small hiatal hernia. A distended stomach. Multiple fluid/gas filled 4.5 cm dilated small bowel loops/moderate grade small bowel obstruction seen with transition zone within the right midabdomen (series 2 image 51, series 300 image 38). Moderate volume stool/gas in the colon. PELVIS: Appendix: No acute findings in the region of the appendix. Bladder: A distended urinary bladder. No mass. Reproductive: A mildly enlarged prostate gland. ABDOMEN and PELVIS: Intraperitoneal space: No free air. No significant fluid collection. Bones/joints: No acute fracture. No dislocation. Mild lumbar dextroscoliosis. Mild spondylotic changes. Soft tissues: Unremarkable. Left anterior abdominal wall weakness. Vasculature: Extensive calcified atherosclerotic plaques/calcification of the tortuous/elongated normal caliber aortoiliac vasculature and all branch vessels. No abdominal aortic aneurysm. Lymph nodes: Unremarkable. No enlarged lymph nodes.. IMPRESSION: Moderate grade small bowel obstruction with dilated air/fluid-filled small bowel loops as described above. A distended urinary bladder. Lung bases: Posteriorly linear atelectasis/interstitial infiltrates. No consolidation. No pleural effusion. Additional chronic findings as described above. . Electronically signed by: Lea Alexander MD, DABR 11/06/23 02:04 AM ECG Additional Comments: ECG normal sinus rhythm rate 64. No significant change was found. Code Status & VTE Plan VTE Prophylaxis Plan VTE Prophylaxis will be ordered: Yes
[2023-11-06] MEDS ORDERED: PHARMACY GLYCEMIC MGMT CONSULT PRN (04:37)
[2023-11-06] MEDS ORDERED: CARBOHYDRATES FOR HYPOGLYCEMIA PO PRN (04:37)
[2023-11-06] MEDS ORDERED: HYDROmorphone INJ 0.5 MG/0.5 ML SYR IV PRN ×2 (04:37)
[2023-11-06] MEDS ORDERED: GLUCOSE 10 TAB/TUBE PO PRN (04:37)
[2023-11-06] MEDS ORDERED: GLUCAGON FOR INJ 1 MG VIAL SQ PRN (04:37)
[2023-11-06] MEDS ORDERED: GLUCOSE 40% GEL 15 GM TUBE PO PRN (04:37)
[2023-11-06] MEDS ORDERED: DEXTROSE 50% 50 ML SYRINGE IV PRN (04:37)
[2023-11-06] MEDS: INSULIN ASPART PER UNIT CHARGE SC SCH (05:05)
[2023-11-06] MEDS: SODIUM CHLORIDE 0.9% 1,000 ML IV SCH (05:14)
[2023-11-06 07:30] LABS: Basophils # (auto) 0.02 K/uL (0.00-0.20); Basophils % (auto) 0.2 %; Eosinophils # (auto) 0.01 K/uL (0.00-0.50); Eosinophils % (auto) 0.1 %; Hematocrit (blood only) 44.3 % (42.0-52.0); Hemoglobin 14.4 g/dl (14.0-18.0); Immature Granulocytes # (auto) 0.02 K/uL (0.01-0.20); Immature Granulocytes % (auto) 0.2 %; Lymphocytes # (auto) 0.64 K/uL (1.20-3.40); Lymphocytes % (auto) 7.7 %; Mean Corpuscular Hgb Conc 32.5 g/dL (32.0-36.0); Mean Corpuscular Volume 92.3 fL (80.0-100.0); Mean Platelet Volume 10.7 fL (9.4-12.4); Monocytes # (auto) 0.69 K/uL (0.11-0.59); Monocytes % (auto) 8.3 %; Neutrophils # (auto) 6.96 K/uL (1.40-6.50); Neutrophils % (auto) 83.5 %; Platelet Count 153 K/uL (130-400); RDW Coefficient of Variation 13.3 % (11.5-14.5); RDW Standard Deviation 44.6 fL (36.4-46.3); White Blood Count 8.34 K/ul (4.8-10.8)
[2023-11-06 07:35] LABS: Estimated Average Glucose 163 mg/dl; Hemoglobin A1C 7.3 % (4.5-5.6)
[2023-11-06 07:37] LABS: BUN Creatinine Ratio 19.8 (10-20); Calcium 9.1 mg/dl (8.6-10.3); Creatinine Clr Calc Pharmacy 85.4 ml/min; Est GFR (African American) 104.3 ml/min; Magnesium 1.7 mg/dl (1.7-2.4); Potassium 5.1 mmol/L (3.5-5.1)
[2023-11-06] MEDS: ONDANSETRON INJ 2 MG/ML 2 ML VIAL IV PRN (08:29)
[2023-11-06] MEDS: LACTATED RINGER'S 1,000 ML IV SCH (08:34)
[2023-11-06] MEDS ORDERED: FUROSEMIDE 20 MG TAB PO SCH (09:00)
--- NOTE | 2023-11-06 09:00 | Electrocardiogram Report ---
Test Reason : Blood Pressure : */* mmHG Vent. Rate : 64 BPM Atrial Rate : 64 BPM P-R Int : 144 ms QRS Dur : 76 ms QT Int : 426 ms P-R-T Axes : 59 -6 51 degrees QTcB Int : 439 ms Normal sinus rhythm Normal ECG When compared with ECG of 16-Oct-2023 10:13, No significant change was found Confirmed by Shakeel Vaca ([id number]) on 11/06/2023 9:00:09 AM Referred By: REFERRED SELF Confirmed By: Shakeel Vaca
[2023-11-06] MEDS: HEPARIN SOD 5,000 UNIT/0.5 ML VIAL SQ SCH (09:17)
--- NOTE | 2023-11-06 09:18 | XRay Report ---
KUB CLINICAL HISTORY: Small bowel obstruction. COMPARISON STUDY: CT of the abdomen and pelvis November 05, 2023. FINDINGS: Incidental note is made of contrast within the bladder from recent contrast-enhanced CT. Vi sualized portions of the right hip arthroplasty are intact. Multiple loops of moderately dilated smal l bowel are again noted. This is similar to CT. IMPRESSION: Persistent small bowel obstruction. ACT 112: Negative or not required by law. Electronically signed by: Sebastien Castillo M.D. 11/06/2023 9:16 AM
[2023-11-06] MEDS: SERTRALINE HCL 50 MG TABLET PO SCH (09:22)
[2023-11-06] MEDS: TAMSULOSIN HCL 0.4 MG CAP PO SCH (09:22)
[2023-11-06] MEDS: ASPIRIN 81 MG ECTAB PO SCH (09:22)
[2023-11-06] MEDS: MYCOPHENOLATE SODIUM 180 MG TAB PO SCH (09:22)
[2023-11-06] MEDS: predniSONE 5 MG TAB PO SCH (09:22)
[2023-11-06] MEDS: LANTUS PER UNIT CHARGE SQ SCH ×2 (09:25→21:55)
[2023-11-06] MEDS ORDERED: ONDANSETRON INJ 2 MG/ML 2 ML VIAL IV PRN (09:56)
--- NOTE | 2023-11-06 10:50 | Surgery Consultation ---
Date of Consultation November 06, 2023 Assessment & Plan (1) Small bowel obstruction: (2) History of kidney transplant: (3) History of pancreas transplant: (4) Immunocompromised: Plan 62-year-old gentleman with a small bowel obstruction, most likely adhesive. This is a very complex transplant patient he was had multiple operations for transplant in his life. He currently has a functioning pancreas and kidney transplant and is on immunosuppression with tacrolimus, mycophenolate, and prednisone. He has been unable to take his medication due to the obstruction. This is a very complex situation given his kidney and pancreas transplant. He should in all rights be transferred to a tertiary care center with a transplant program that can manage the immunosuppression much more closely. Even slightly decreased levels of tacrolimus can precipitate failure of a kidney transplant. Also given his numerous prior transplant operations and immunosuppression, if he requires any surgical intervention, he will need to be transferred to a tertiary care center. I would strongly suggest transfer to tertiary care with transplant services available to more closely manage his immunosuppression. We will continue to follow while he is here. History of Present Illness Reason for Consultation: Small bowel obstruction Requesting Physician: Sarmad Rivera MD Attending Physician: Sarmad Rivera MD History of Present Illness 62-year-old gentleman with an extensive past surgical history of kidney and pancreas transplants. He has had at least 5 separate transplant surgeries. He is on current immunosuppression including tacrolimus, mycophenolate, prednisone. History of 1 day of severe abdominal pain. He does have nausea and has vomited multiple times. He does not have an NG tube. Of note, he has been unable to ta ke his transplant medications this morning due to the obstruction. He denies fevers or chills. Episode in the past. CT scan demonstrates what appears to be a small bowel obstruction. Allergies Allergy/AdvReac Type Severity Reaction Status Date / Time mycophenolate mofetil Allergy Severe KIDNEY Verified 11/05/23 23:48 [From CellCept] FAILED cephalexin Allergy Mild RASH Verified 11/05/23 23:48 Penicillins Allergy Mild RASH Verified 11/05/23 23:48 Home Medications Medication Instructions Recorded Confirmed Type furosemide 20 mg tablet 20 mg PO QAM 01/16/18 11/05/23 History mycophenolate sodium 360 mg 360 mg PO TID 01/16/18 11/05/23 History tablet,delayed release (Myfortic) sertraline 100 mg tablet 150 mg PO QAM 01/16/18 11/05/23 History aspirin 81 mg tablet,delayed 81 mg PO QAM 07/19/20 11/05/23 History release cyanocobalamin (vitamin B-12) 1,000 mcg PO QAM 07/19/20 11/05/23 History 1,000 mcg tablet (Vitamin B-12) prednisone 5 mg tablet 5 mg PO QAM 07/19/20 11/05/23 History tacrolimus 0.5 mg capsule, 0.5 mg PO HS 07/19/20 11/05/23 History immediate-release (Prograf) insulin degludec 100 unit/mL (3 8 unit subcut HS 01/07/22 11/05/23 History mL) subcutaneous pen (Tresiba FlexTouch U-100 insulin) atorvastatin 20 mg tablet 20 mg PO HS 11/05/23 11/05/23 History insulin aspart See Rx Instructions .Route .COMPLEX 11/05/23 11/05/23 History (niacinamide)(U-100) 100 unit/mL(3 mL) subcutaneous pen (Fiasp FlexTouch U-100 Insulin) metformin 500 mg tablet,extended 500 mg PO UD 11/05/23 11/05/23 History release 24 hr tamsulosin 0.4 mg capsule 0.4 mg PO QAM 11/05/23 11/05/23 History Patient History Medical History History of hemodialysis Surgical History History of hip replacement History of eye surgery History of cholecystectomy History of colonoscopy Family History Other Cancer Diabetes Heart disease Hypertension Seizure Social History Smoking Status: Never smoker Hx Alcohol Use: Yes Alcohol type: beer Hx Substance Use: No Preferred Language: Turkmen Communication Ability: Effective Communication Ability Comment: legally blind [employer] Required: No Beliefs That Will Affect Care: None marital status: Current Living Situation: Spouse Current Living Situation Comment: one story current occupational status: disabled Feels Safe at Home: Yes and No Review of Systems Review of Systems: All systems reviewed & are unremarkable except as noted in HPI & below Physical Exam Constitutional: WD/WN, vitals as above Eyes: PERRL, conjunctivae normal, anicteric sclerae Neck: trachea midline, no thyromegaly Respiratory: normal respiratory effort; no respiratory distress and no labored breathing Cardiovascular: Rate/Rhythm: regular rate and regular rhythm Gastrointestinal (Abdomen): Inspection/Auscultation: abdomen normal to inspe ction and + abdomen distended Percussion/Palpation: + abdomen tender ( Diffusely) and abdomen soft; no guarding and abdomen not rigid Skin: no rashes, warm and dry Psychiatric: A+Ox3, euthymic affect Results & Data Vital Signs (Past 12 Hours) Vital Signs Temp Pulse Pulse Pulse Resp BP BP 11/06/23 08:28 152/75 H 11/06/23 07:55 36.7 C 76 18 187/77 H 11/06/23 04:37 36.7 C 77 16 170/78 H 11/06/23 04:20 72 18 185/96 H 11/06/23 03:00 67 19 198/81 H 11/06/23 01:12 68 19 195/75 H Pulse Ox O2 Del Method 11/06/23 08:28 11/06/23 07:55 93 Room Air 11/06/23 04:37 93 Room Air 11/06/23 04:20 97 Room Air 11/06/23 03:00 97 Room Air 11/06/23 01:12 98 Room Air Laboratory Results 11/06/23 11/06/23 11/05/23 Range/Units 06:56 05:41 23:17 WBC 8.34 (4.8-10.8) K/ul RBC 4.80 (4.70-6.10) M/uL Hgb 14.4 (14.0-18.0) g/dl Hct 44.3 (42.0-52.0) % MCV 92.3 (80.0-100.0) fL MCH 30.0 (25.0-34.0) pg MCHC 32.5 (32.0-36.0) g/dL RDW Std Deviation 44.6 (36.4-46.3) fL RDW Coeff of Samra 13.3 (11.5-14.5) % Plt Count 153 (130-400) K/uL MPV 10.7 (9.4-12.4) fL Immature Gran % (Auto) 0.2 % Neut % (Auto) 83.5 % Lymph % (Auto) 7.7 % Moca % (Auto) 8.3 % Eos % (Auto) 0.1 % Baso % (Auto) 0.2 % Neut # (Auto) 6.96 H (1.40-6.50) K/uL Lymph # (Auto) 0.64 L (1.20-3.40) K/uL Moca # (Auto) 0.69 H (0.11-0.59) K/uL Eos # (Auto) 0.01 (0.00-0.50) K/uL Baso # (Auto) 0.02 (0.00-0.20) K/uL Immature Gran # (Auto) 0.02 (0.01-0.20) K/uL Sodium 136 (136-145) mmol/L Potassium 5.1 (3.5-5.1) mmol/L Chloride 105 (98-107) mmol/L Carbon Dioxide 26 (21-32) mmol/L Anion Gap 5 (3-11) BUN 18 (6-23) mg/dl Creatinine 0.91 (0.6-1.4) mg/dl Est Cr Clr Drug Dosing 85.4 ml/min Est GFR ( Amer) 104.3 ml/min Est GFR (Non-Af Amer) 90.0 ml/min BUN/Creatinine Ratio 19.8 (10-20) Glucose 218 H (70-99(Fasting)) mg/dl POC Glucose 198 H (70-99) mg/dl Estimat Average Glucose 163 mg/dl Hemoglobin A1c 7.3 H (4.5-5.6) % Calcium 9.1 (8.6-10.3) mg/dl Magnesium 1.7 (1.7-2.4) mg/dl Total Bilirubin (0.2-1.0) mg/dl AST (13-39) U/L ALT (7-52) U/L Alkaline Phosphatase (34-104) U/L Troponin I High Sens (0-20) pg/ml Total Protein (6.0-8.3) gm/dl Albumin (3.4-5.0) gm/dl Globulin (2.5-4.0) gm/dl Albumin/Globulin Ratio (0.9-2) Lipase (11-82) U/L Urine Color Yellow Urine Appearance Clear (Clear) Urine pH 7.0 (4.5-7.5) Ur Specific [place] 1.016 (1.000-1.030) Urine Protein Negative (Negative) Urine Glucose (UA) Negative (Negative) Urine Ketones Negative (Negative) Urine Blood Negative (Negative) Urine Nitrite Negative (Negative) Urine Bilirubin Negative (Negative) Urine Urobilinogen Negative (Negative) Ur Leukocyte Esterase Negative (Negative) 11/05/23 Range/Units 22:03 WBC 8.89 (4.8-10.8) K/ul RBC 4.64 L (4.70-6.10) M/uL Hgb 14.0 (14.0-18.0) g/dl Hct 42.2 (42.0-52.0) % MCV 90.9 (80.0-100.0) fL MCH 30.2 (25.0-34.0) pg MCHC 33.2 (32.0-36.0) g/dL RDW Std Deviation 43.9 (36.4-46.3) fL RDW Coeff of Samra 13.2 (11.5-14.5) % Plt Count 158 (130-400) K/uL MPV 10.9 (9.4-12.4) fL Immature Gran % (Auto) 0.3 % Neut % (Auto) 85.4 % Lymph % (Auto) 6.2 % Moca % (Auto) 7.5 % Eos % (Auto) 0.4 % Baso % (Auto) 0.2 % Neut # (Auto) 7.58 H (1.40-6.50) K/uL Lymph # (Auto) 0.55 L (1.20-3.40) K/uL Moca # (Auto) 0.67 H (0.11-0.59) K/uL Eos # (Auto) 0.04 (0.00-0.50) K/uL Baso # (Auto) 0.02 (0.00-0.20) K/uL Immature Gran # (Auto) 0.03 (0.01-0.20) K/uL Sodium 139 (136-145) mmol/L Potassium 4.8 (3.5-5.1) mmol/L Chloride 107 (98-107) mmol/L Carbon Dioxide 26 (21-32) mmol/L Anion Gap 6 (3-11) BUN 26 H (6-23) mg/dl Creatinine 0.98 (0.6-1.4) mg/dl Est Cr Clr Drug Dosing 79.5 ml/min Est GFR ( Amer) 95.4 ml/min Est GFR (Non-Af Amer) 82.3 ml/min BUN/Creatinine Ratio 26.5 H (10-20) Glucose 141 H (70-99(Fasting)) mg/dl POC Glucose (70-99) mg/dl Estimat Average Glucose mg/dl Hemoglobin A1c (4.5-5.6) % Calcium 9.6 (8.6-10.3) mg/dl Magnesium 1.7 (1.7-2.4) mg/dl Total Bilirubin 0.6 (0.2-1.0) mg/dl AST 21 (13-39) U/L ALT 15 (7-52) U/L Alkaline Phosphatase 88 (34-104) U/L Troponin I High Sens 7.6 (0-20) pg/ml Total Protein 7.0 (6.0-8.3) gm/dl Albumin 4.2 (3.4-5.0) gm/dl Globulin 2.8 (2.5-4.0) gm/dl Albumin/Globulin Ratio 1.5 (0.9-2) Lipase 25 (11-82) U/L Urine Color Urine Appearance (Clear) Urine pH (4.5-7.5) Ur Specific [place] (1.000-1.030) Urine Protein (Negative) Urine Glucose (UA) (Negative) Urine Ketones (Negative) Urine Blood (Negative) Urine Nitrite (Negative) Urine Bilirubin (Negative) Urine Urobilinogen (Negative) Ur Leukocyte Esterase (Negative) Diagnostic Findings Exam(s): CT ABDOMEN + PELVIS With Contrast IV Amt: 93 cc's optiray 320 EXAM: CT Abdomen and Pelvis With Intravenous Contrast CLINICAL HISTORY: Reason for exam: left abd pain. TECHNIQUE: Axial computed tomography images of the abdomen and pelvis with intravenous contrast. CTDI is 24.89 mGy and DLP is 1271.62 mGy-cm. Automated exposure control was utilized for the study. A dose lowering technique was utilized adhering to the principles of ALARA. CONTRAST: Patient received 93 cc's optiray 320 of IV contrast COMPARISON: CT abdomen/pelvis: 03/19/2012 FINDINGS: Diagnostic sensitivity of the exam is reduced by the motion artifact. Lung bases: Posteriorly linear atelectatic changes/interstitial infiltrates.. No mass. No consolidation. Multiple tortuous/elongated thin-walled vascular structures are seen subcutaneously along the right lateral/posterior chest qiu and at the left paraesophageal region, question peripheral vascular malformation, ABDOMEN: Liver: Mild/moderate steatosis.. No mass. Gallbladder and bile ducts: The gallbladder is surgically absent.. Postcholecystectomy intrahepatic/extrahepatic ductal ectasia. Pancreas: Moderately severe diffusely atrophic pancreas. There is likely in the right lower quadrant pancreatic allograft present with corresponding metallic surgical clips. Spleen: Unremarkable. No splenomegaly. Adrenals: Unremarkable. No mass. Kidneys and ureters: Severely atrophic bilateral [place] kidneys. Redemonstrates a left lower quadrant renal transplant with a 4 mm nonobstructive calculus. No hydronephrosis. Stomach and bowel: A small hiatal hernia. A distended stomach. Multiple fluid/gas filled 4.5 cm dilated small bowel loops/moderate grade small bowel obstruction seen with transition zone within the right midabdomen (series 2 image 51, series 300 image 38). Moderate volume stool/gas in the colon. PELVIS: Appendix: No acute findings in the region of the appendix. Bladder: A distended urinary bladder. No mass. Reproductive: A mildly enlarged prostate gland. ABDOMEN and PELVIS: Intraperitoneal space: No free air. No significant fluid collection. Bones/joints: No acute fracture. No dislocation. Mild lumbar dextroscoliosis. Mild spondylotic changes. Soft tissues: Unremarkable. Left anterior abdominal wall weakness. Vasculature: Extensive calcified atherosclerotic plaques/calcification of the tortuous/elongated normal caliber aortoiliac vasculature and all branch vessels. No abdominal aortic aneurysm. Lymph nodes: Unremarkable. No enlarged lymph nodes.. IMPRESSION: Moderate grade small bowel obstruction with dilated air/fluid-filled small bowel loops as described above. A distended urinary bladder. Lung bases: Posteriorly linear atelectasis/interstitial infiltrates. No consolidation. No pleural effusion. Additional chronic findings as described above. . Electronically signed by: Lea Alexander MD, DOROTHEA 11/06/23 02:04 AM
--- NOTE | 2023-11-06 11:17 | XRay Report ---
XR chest 1V portable CLINICAL HISTORY: NG tube placement COMPARISON STUDY: Chest radiograph October 16, 2023. FINDINGS: Tip of the nasogastric tube projects over the distal stomach. Left basilar linear densities represent atelectasis. No consolidation is present. No evidence for pulmonary edema. Vascular stents project over the left upper chest. Several loops of dilated small bowel are again noted. IMPRESSION: Tip of nasogastric tube within the distal stomach. ACT 112: Negative or not required by law. Electronically signed by: Sebastien Castillo M.D. 11/06/2023 11:16 AM
--- NOTE | 2023-11-06 13:45 | Hospitalist Progress Note ---
Date of Service November 06, 2023 Assessment & Plan (1) Small bowel obstruction: Plan: 62-year-old male with past med history significant for type 1 diabetes diagnosed at age 15, diabetic chronic kidney disease, hypertension, mild aortic regurgitation, mild CAD, GERD, legally blind, anemia of chronic renal disease, status post kidney transplant with a donor in 2003 which lasted until 2007 and then required hemodialysis until 2011. Status post living related kidney transplant 2011. 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 Patient did not had any bowel obstruction in the past. The pain started at 5 PM. Associated w ith nausea and vomiting. He vomited a couple of times. Last bowel movement was yesterday evening. No fevers. No headache. No runny nose or sore throat. No cough. No chest pain or shortness of breath. Currently hemodynamics are okay. Family is in the room. Small bowel obstruction Complex history with multiple transplants: Kidney, pancreas Immunocompromised state --CT BAD:Moderate grade small bowel obstruction with dilated air/fluid-filled small bowel loops as described above. A distended urinary bladder. -- KUB:Persistent small bowel obstruction. 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 meds IV hydralazine as needed monitor Hyperlipidemia On statin BPH On Flomax Monitor for any retention Mild CAD On aspirin, and statin Depression On Zoloft Anemia of chronic kidney disease Hb at baseline Monitor DVT Px: Heparin SQ CODE STATUS Full code Admission and Anticipated Discharge Date Admission Date: November 06, 2023 Subjective Patient is seen and examined at bedside Had nausea, vomiting this morning Abdominal pain better after placing NG tube Denies any chest pain, dyspnea No other complaints Review of Systems Review of Systems: All systems reviewed & are unremarkable except as noted in Subjective Physical Exam Physical Exam: Physical Exam: Vitals signs as noted above General Appearance:Moderately built and nourished, no apparent distress Head: normocephalic, Atraumatic, +NG tube Eyes: normal inspection, legally blind Neck: supple, Trachea midline Respiratory/Chest: Normal breath sounds, CTA, No accessory muscle use Cardiovascular: S1, S2, No murmur Abdomen/GI:Soft, distended, + tender, decreased bowel sounds Extremities/Musculoskeletal:normal inspection, no edema Neurologic/Psych:AAOX3, grossly no focal neurological deficits Skin: normal color, warm Results & Data Results & Data Vital Signs (Past 12 Hours) Vital Signs Temp Pulse Pulse Pulse Resp BP BP 11/06/23 08:28 152/75 H 11/06/23 07:55 36.7 C 76 18 187/77 H 11/06/23 04:37 36.7 C 77 16 170/78 H 11/06/23 04:20 72 18 185/96 H 11/06/23 03:00 67 19 198/81 H Pulse Ox O2 Del Method 11/06/23 08:28 11/06/23 07:55 93 Room Air 11/06/23 04:37 93 Room Air 11/06/23 04:20 97 Room Air 11/06/23 03:00 97 Room Air Laboratory Results Short CBC 11/05/23 11/06/23 Range/Units 22:03 06:56 WBC 8.89 8.34 (4.8-10.8) K/ul Hgb 14.0 14.4 (14.0-18.0) g/dl Hct 42.2 44.3 (42.0-52.0) % Plt Count 158 153 (130-400) K/uL BMP 11/05/23 11/06/23 22:03 06:56 Sodium 139 136 Potassium 4.8 5.1 Chloride 107 105 Carbon Dioxide 26 26 BUN 26 H 18 Creatinine 0.98 0.91 Glucose 141 H 218 H Calcium 9.6 9.1 Liver Function 11/05/23 Range/Units 22:03 Total Bilirubin 0.6 (0.2-1.0) mg/dl AST 21 (13-39) U/L ALT 15 (7-52) U/L Alkaline Phosphatase 88 (34-104) U/L Albumin 4.2 (3.4-5.0) gm/dl Urine 11/05/23 Range/Units 23:17 Urine Color Yellow Urine Appearance Clear (Clear) Urine pH 7.0 (4.5-7.5) Ur Specific [place] 1.016 (1.000-1.030) Urine Protein Negative (Negative) Urine Glucose (UA) Negative (Negative)
--- NOTE | 2023-11-06 14:02 | Pharmacy Report ---
Pharmacy Glycemic Short Note 2 - Date of Service November 06, 2023 - Glycemic Short BSG Results (Last 24 hours): 11/05/23 11/06/23 11/06/23 22:03 05:41 06:56 Glucose 141 H 218 H POC Glucose 198 H 11/06/23 12:01 Glucose POC Glucose 210 H OUTPATIENT ANTIDIABETIC REGIMEN: * Tresiba 8 units SC HS * Fiasp w/ meals up to 20 units daily (insulin to carb ratio of 1 unit per 15 grams CHO) * Metformin 1000 mg PO qAM, 500 mg PO qPM HbA1c: 7.3% (11/06/23) ASSESSMENT: * TZ is a 62 year old male w/ T1DM s/p failed pancreas transplant * Admitted overnight w/ SBO and is currently NPO * Received 1/2 of home basal dose this morning, will allow for scale up to patient's reported home dose * Surgery recommending transfer to tertiary care center PLAN FOR INPATIENT GLYCEMIC CONTROL: * Hold outpatient oral diabetes medications * Basal insulin * Lantus 4 units SC x 1 this morning * Lantus 0-2-4 units SC HS (see EHR for details) * Bolus insulin * NovoLog per scale ACHS or Q6hrs while NPO * Goal Range: Low 110 mg/dL - High 140 mg/dL * Correction Factor: 30 mg/dL/unit * Nutritional / Prandial insulin per carb ratio of 1 unit per 15 grams CHO consumed
--- NOTE | 2023-11-06 14:50 | Communication Note ---
Date of Service: November 06, 2023 Discussed with triage officer at [facility] for possible transfer. "I spoke to our Surgeon and Hospitalist. The surgeon does not feel the patient needs transfer right now with no indication for surgery. Recommended the usual non-operative management: bowel rest, NPO/NGT, and consider small bowel follow through to assess if patient cleared. Medicine not willing to accept either if surgery does not feel he should come. I also discussed with Nephrology. They do not have much to add either. Feel the Digital Manager there can manage and they can assist by phone if needed. So, we will hold on accepting transfer for now. If there are any issues, I would recommend that your surgeon there reach out and request to speak with our surgeon via transfer center." I ordered tacrolimus levels. Updated surgery. Will update patient/patient's family. Will consult nephrology as well. Continue current management for now.
[2023-11-06] MEDS: ACETAMINOPHEN 1,000 MG/100 ML VIAL IV PRN (16:23)
[2023-11-06] MEDS: TACROLIMUS 0.5 MG CAP PO SCH (21:55)
[2023-11-06] MEDS: ATORVASTATIN 20 MG TAB PO SCH (21:55)
--- NOTE | 2023-11-07 01:58 | Surgery Progress Note ---
Date of Service November 07, 2023 Assessment & Plan (1) Small bowel obstruction: (2) History of kidney transplant: (3) History of pancreas transplant: (4) Immunocompromised: Plan 62-year-old gentleman with a small bowel obstruction, most likely adhesive. This is a very complex transplant patient he was had multiple operations for transplant in his life. He currently has a functioning pancreas and kidney transplant and is on immunosuppression with tacrolimus, mycophenolate, and prednisone. He has been unable to take his medication due to the obstruction. This is a very complex situation given his kidney and pancreas transplant. He should in all rights be transferred to a tertiary care center with a transplant program that can manage the immunosuppression much more closely. Even slightly decreased levels of tacrolimus can precipitate failure of a kidney transplant. Also given his numerous prior transplant operations and immunosuppression, if he requires any surgical intervention, he will need to be transferred to a tertiary care center. I would strongly suggest transfer to tertiary care with transplant services available to more closely manage his immunosuppression. We will continue to follow while he is here. 11/07/23 - he has begun passing flatus. We will continue conservative management for now. If he continues passing flatus over the next few hours, may clamp NG tube. Will plan to advance slowly. Will continue to follow. Admission and Anticipated Discharge Date Admission Date: November 06, 2023 Subjective States he is feeling better. Has begun passing flatus. No further abdominal pain. No nausea or vomiting. Physical Exam Physical Exam: NAD, A&O x 3 NCAT, abdomen: Soft, mild distention, mild tenderness to palpation Results & Data Vital Signs (Past 12 Hours) Vital Signs Temp Pulse Resp BP Pulse Ox O2 Del Method 11/06/23 19:17 36.9 C 62 16 155/88 H 93 Room Air 11/06/23 16:06 36.4 C L 74 18 173/83 H 98 Room Air
[2023-11-07 06:42] LABS: Hematocrit (blood only) 43.5 % (42.0-52.0); Hemoglobin 14.5 g/dl (14.0-18.0); Mean Corpuscular Hemoglobin 30.3 pg (25.0-34.0); Mean Corpuscular Hgb Conc 33.3 g/dL (32.0-36.0); Mean Corpuscular Volume 90.8 fL (80.0-100.0); Mean Platelet Volume 10.8 fL (9.4-12.4); Platelet Count 148 K/uL (130-400); RDW Coefficient of Variation 13.2 % (11.5-14.5); RDW Standard Deviation 43.8 fL (36.4-46.3); Red Blood Count 4.79 M/uL (4.70-6.10); White Blood Count 4.78 K/ul (4.8-10.8)
[2023-11-07 07:03] LABS: BUN Creatinine Ratio 23.3 (10-20); Calcium 9.1 mg/dl (8.6-10.3); Creatinine Clr Calc Pharmacy 90.3 ml/min; Est GFR (African American) 107.7 ml/min; Est GFR (Non-African American) 92.9 ml/min; Magnesium 1.6 mg/dl (1.7-2.4); Potassium 4.3 mmol/L (3.5-5.1)
[2023-11-07] MEDS: MAGNESIUM SULFATE / D5W 1 GM/100 ML BAG IV ONE (09:16)
--- NOTE | 2023-11-07 10:54 | Nephrology Consultation ---
Date of Consultation November 07, 2023 Assessment & Plan (1) History of kidney transplant: Patient with history of living related kidney transplant in 2012 with excellent graft function. Creatinine of 0.86 today. Electrolytes are stable. Will continue Plasma-Lyte at 100 mL/h. Continue home immunosuppression regimen Prograf 0.5 mg every 12 daily with an additional Prograf 0.5 mg in the morning on Wednesday and Wednesday. Continue mycophenolate 360 mg 3 times daily and prednisone 5 mg daily. Monitor daily BMP. Avoid contrast (2) Immunocompromised: Will continue immunosuppression regimen as above. Continue infection prevention measures. Will follow Prograf level which is pending (3) Small bowel obstruction: (4) Hypertension: Blood pressure is above target likely in setting of intravenous IV fluids. Will give him amlodipine 5 mg daily. 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 Patient also had a pancreas transplant in 2004 but currently on insulin as well. He was admitted with abdominal pain and distention found to have small bowel obstruction. Surgery recommended an EGD suction. He is also getting Plasma- Lyte at 100 mL/h. He reports improvement denies abdominal pain. No shortness of breath or leg swelling. He is making urine. Blood pressure slightly high today. Allergies Allergy/AdvReac Type Severity Reaction Status Date / Time mycophenolate mofetil Allergy Severe KIDNEY Verified 11/05/23 23:48 [From CellCept] FAILED cephalexin Allergy Mild RASH Verified 11/05/23 23:48 Penicillins Allergy Mild RASH Verified 11/05/23 23:48 Home Medications Medication Instructions Recorded Confirmed Type furosemide 20 mg tablet 20 mg PO QAM 01/16/18 11/05/23 History mycophenolate sodium 360 mg 360 mg PO TID 01/16/18 11/05/23 History tablet,delayed release (Myfortic) sertraline 100 mg tablet 150 mg PO QAM 01/16/18 11/05/23 History aspirin 81 mg tablet,delayed 81 mg PO QAM 07/19/20 11/05/23 History release cyanocobalamin (vitamin B-12) 1,000 mcg PO QAM 07/19/20 11/05/23 History 1,000 mcg tablet (Vitamin B-12) prednisone 5 mg tablet 5 mg PO QAM 07/19/20 11/05/23 History tacrolimus 0.5 mg capsule, 0.5 mg PO UD 07/19/20 11/07/23 History immediate-release (Prograf) insulin degludec 100 unit/mL (3 8 unit subcut HS 01/07/22 11/05/23 History mL) subcutaneous pen (Tresiba FlexTouch U-100 insulin) atorvastatin 20 mg tablet 20 mg PO HS 11/05/23 11/05/23 History insulin aspart See Rx Instructions .Route .COMPLEX 11/05/23 11/05/23 History (niacinamide)(U-100) 100 unit/mL(3 mL) subcutaneous pen (Fiasp FlexTouch U-100 Insulin) metformin 500 mg tablet,extended 500 mg PO UD 11/05/23 11/05/23 History release 24 hr tamsulosin 0.4 mg capsule 0.4 mg PO QAM 11/05/23 11/05/23 History Patient History Medical History History of hemodialysis Surgical History History of hip replacement History of eye surgery History of cholecystectomy History of colonoscopy Family History Other Cancer Diabetes Heart disease Hypertension Seizure Social History Smoking Status: Never smoker Hx Alcohol Use: Yes Alcohol type: beer Hx Substance Use: No Preferred Language: [place] Communication Ability: Effective Communication Ability Comment: legally blind 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 NG tube to suction HEENT: Pupils are equal and reactive to light Neck: No JVD, neck is supple trachea is midline Respiratory system: Clear breath sounds bilaterally. Gastrointestinal: mildly distended, non tender, bowel sounds are present CVS: Regular rate and rhythm. No murmurs, rubs or gallops Musculoskeletal: No joint or muscle tenderness Extremities: Non tender, no edema, peripheral pulses are present Neuro: Oriented, no tremors, no focal neurological deficits Skin: No rashes Results & Data Vital Signs (Past 12 Hours) Vital Signs Temp Pulse Resp BP Pulse Ox O2 Del Method 11/07/23 07:05 37.4 C 75 18 150/78 H 96 Room Air Laboratory Results 11/07/23 05:54 11/07/23 05:54 WBC 4.78 L RBC 4.79 MCV 90.8 MCH 30.3 MCHC 33.3 RDW Std Deviation 43.8 RDW Coeff of Samra 13.2 Plt Count 148 MPV 10.8
[2023-11-07] MEDS: amLODIPine BESYLATE 5 MG TAB PO SCH (11:34)
[2023-11-07] MEDS: TACROLIMUS 0.5 MG CAP PO ONE (11:34)
[2023-11-07] MEDS: LORazepam 0.5 MG in SYRINGE 0.25 ML IV ONE (13:28)
--- NOTE | 2023-11-07 15:10 | Hospitalist Progress Note ---
Date of Service November 07, 2023 Assessment & Plan (1) Small bowel obstruction: Plan: 62-year-old male with past med history significant for type 1 diabetes diagnosed at age 15, diabetic chronic kidney disease, hypertension, mild aortic regurgitation, mild CAD, GERD, legally blind, anemia of chronic renal disease, status post kidney transplant with a donor in 2003 which lasted until 2007 and then required hemodialysis until 2011. Status post living related kidney transplant 2011. 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 Patient did not had any bowel obstruction in the past. The pain started at 5 PM. Associated w ith nausea and vomiting. He vomited a couple of times. Last bowel movement was yesterday evening. No fevers. No headache. No runny nose or sore throat. No cough. No chest pain or shortness of breath. Currently hemodynamics are okay. Family is in the room. Small bowel obstruction Complex history with multiple transplants: Kidney, pancreas Immunocompromised state --CT BAD:Moderate grade small bowel obstruction with dilated air/fluid-filled small bowel loops as described above. A distended urinary bladder. -- KUB:Persistent small bowel obstruction. -- Continue NG tube, bowel rest, IV fluids Pain control Appreciate surgery input Had BM today Continue current management Type 1 diabetes Failed pancreas transplant HbA1c 7.3 Continue Lantus and sliding scale Glycemic pharmacy consult Monitor blood glucose levels S/p kidney transplant Continue transplant medications Tacrolimus level pending Appreciate nephrology input Hypertension BP elevated Added amlodipine IV hydralazine as needed monitor BP Hyperlipidemia On statin BPH On Flomax Monitor for any retention Mild CAD On aspirin, and statin Depression On Zoloft Anemia of chronic kidney disease Hb at baseline Monitor DVT Px: Heparin SQ CODE STATUS Full code Admission and Anticipated Discharge Date Admission Date: November 06, 2023 Subjective Patient is seen and examined at bedside + Flatus, BM today Reports episode of nausea, vomiting which she attributes to immunosuppressive meds Denies any significant abdominal pain today Also denies any chest pain, dyspnea No other complaints Review of Systems Review of Systems: All systems reviewed & are unremarkable except as noted in Subjective Physical Exam Physical Exam: Physical Exam: Vitals signs as noted above General Appearance:Moderately built and nourished, no apparent distress Head: normocephalic, Atraumatic, +NG tube Eyes: normal inspection, legally blind Neck: supple, Trachea midline Respiratory/Chest: Normal breath sounds, CTA, No accessory muscle use Cardiovascular: S1, S2, No murmur Abdomen/GI:Soft, distended, non tender, decreased bowel sounds Extremities/Musculoskeletal:normal inspection, no edema Neurologic/Psych:AAOX3, grossly no focal neurological deficits Skin: normal color, warm Results & Data Results & Data Vital Signs (Past 12 Hours) Vital Signs Temp Pulse Resp BP Pulse Ox O2 Del Method 11/07/23 14:40 38.1 C H 83 18 170/73 H 95 Room Air 11/07/23 11:33 164/74 H 11/07/23 07:05 37.4 C 75 18 150/78 H 96 Room Air Laboratory Results Short CBC 11/07/23 Range/Units 05:54 WBC 4.78 L (4.8-10.8) K/ul Hgb 14.5 (14.0-18.0) g/dl Hct 43.5 (42.0-52.0) % Plt Count 148 (130-400) K/uL BMP 11/07/23 05:54 Sodium 137 Potassium 4.3 Chloride 104 Carbon Dioxide 26 BUN 20 Creatinine 0.86 Glucose 172 H Calcium 9.1
[2023-11-07] MEDS: PROMETHAZINE 6.25 MG/50.25 ML BAG IV STA (17:23)
[2023-11-07] MEDS ORDERED: FOSAPREPITANT DIMEGLUMINE 115 MG in 0.9 % SODIUM CHLORIDE 111.1667 ML IV ONE (18:55)
[2023-11-07] MEDS: FOSAPREPITANT DIMEGLUMINE 150 MG in SODIUM CHLORIDE 0.9% 145 ML IV ONE (20:02)
[2023-11-07] MEDS: TACROLIMUS 0.5 MG CAP PO SCH (21:28)
[2023-11-07] MEDS: hydrALAZINE HCL 20 MG/ML VIAL IV PRN (21:42)
[2023-11-08 06:58] LABS: BUN Creatinine Ratio 20.3 (10-20); Calcium 9.3 mg/dl (8.6-10.3); Creatinine Clr Calc Pharmacy 60.7 ml/min; Est GFR (African American) 69.1 ml/min; Est GFR (Non-African American) 59.6 ml/min; Magnesium 1.7 mg/dl (1.7-2.4)
[2023-11-08] MEDS: TACROLIMUS 1 MG CAP PO SCH (08:14)
--- NOTE | 2023-11-08 09:57 | Surgery Progress Note ---
Date of Service November 08, 2023 Assessment & Plan (1) Small bowel obstruction: (2) History of kidney transplant: (3) History of pancreas transplant: (4) Immunocompromised: Plan 62-year-old gentleman with a small bowel obstruction, most likely adhesive. This is a very complex transplant patient he was had multiple operations for transplant in his life. He currently has a functioning pancreas and kidney transplant and is on immunosuppression with tacrolimus, mycophenolate, and prednisone. He has been unable to take his medication due to the obstruction. This is a very complex situation given his kidney and pancreas transplant. He should in all rights be transferred to a tertiary care center with a transplant program that can manage the immunosuppression much more closely. Even slightly decreased levels of tacrolimus can precipitate failure of a kidney transplant. Also given his numerous prior transplant operations and immunosuppression, if he requires any surgical intervention, he will need to be transferred to a tertiary care center. I would strongly suggest transfer to tertiary care with transplant services available to more closely manage his immunosuppression. We will continue to follow while he is here. 11/08/23 febrile this am + nausea (due to taking home meds without food) 550 cc NGT output since this am shift started but likely skewed due to drinking water and ice chips + flatus KUB with persistent sbo, moderate stool in right colon Plan: will order SBFT for diagnostic and possibly therapeutic purposes strict npo to better amanda NGT output pain management as needed continue medical management Dr. Bermudez has seen and examined pt agrees with above. Admission and Anticipated Discharge Date Admission Date: November 06, 2023 Supervising Physician Co-Signing Physician Notes I have seen and examined the patient personally and agree with the above assessment plan. He did have some nausea last night, however it was with medication. He is passing some flatus. He has minimal abdominal pain and tenderness. We will order small bowel follow-through for further evaluation. Continue NPO. Subjective currently nauseous, gets nauseated with his medications if not taken with food (has been same throughout hospitalization) no abdominal pain not feeling distended passing gas small bowel movement yesterday drinking about 2 cups of water/ice a day Physical Exam Constitutional: WD/WN, vitals as above + obese and cooperative; no acute distress, not ill appearing and + uncomfortable looks uncomfortable due to nausea with NGT Gastrointestinal (Abdomen): Inspection/Auscultation: abdomen normal to inspection and + abdominal surgical scar; abdomen not distended Percussion/Palpation: abdomen soft; abdomen nontender, no guarding and abdomen not rigid NGT with 550 dark green output in cannister Skin: no rashes, warm and dry Psychiatric: Orientation: alert and oriented x 3 Results & Data Vital Signs (Past 12 Hours) Vital Signs Temp Pulse Resp BP Pulse Ox O2 Del Method 11/08/23 07:56 36.5 C 80 18 168/80 H 94 Room Air 11/07/23 22:26 36.7 C 137/61 Laboratory Results 11/08/23 11/08/23 11/08/23 Range/Units 12:06 06:00 05:49 Sodium 135 L (136-145) mmol/L Potassium 4.0 (3.5-5.1) mmol/L Chloride 98 (98-107) mmol/L Carbon Dioxide 27 (21-32) mmol/L Anion Gap 10 (3-11) BUN 26 H (6-23) mg/dl Creatinine 1.28 D (0.6-1.4) mg/dl Est Cr Clr Drug Dosing 60.7 ml/min Est GFR ( Amer) 69.1 ml/min Est GFR (Non-Af Amer) 59.6 ml/min BUN/Creatinine Ratio 20.3 H (10-20) Glucose 174 H (70-99(Fasting)) mg/dl POC Glucose 175 H 165 H (70-99) mg/dl Calcium 9.3 (8.6-10.3) mg/dl Magnesium 1.7 (1.7-2.4) mg/dl 11/08/23 11/07/23 11/07/23 Range/Units 00:05 21:27 18:01 Sodium (136-145) mmol/L Potassium (3.5-5.1) mmol/L Chloride (98-107) mmol/L Carbon Dioxide (21-32) mmol/L Anion Gap (3-11) BUN (6-23) mg/dl Creatinine (0.6-1.4) mg/dl Est Cr Clr Drug Dosing ml/min Est GFR ( Amer) ml/min Est GFR (Non-Af Amer) ml/min BUN/Creatinine Ratio (10-20) Glucose (70-99(Fasting)) mg/dl POC Glucose 156 H 149 H 159 H (70-99) mg/dl Calcium (8.6-10.3) mg/dl Magnesium (1.7-2.4) mg/dl Diagnostic Findings KUB HISTORY: Small bowel obstruction. Follow-up. COMPARISON: KUB 11/06/2023. FINDINGS: Dilated gas-filled loops of small bowel are again seen within the abdomen consistent the patient's known small bowel obstruction. Nasogastric tube terminates in the distal stomach. There is gas and stool within the nondistended colon. Surgical clips again noted within the midabdomen. Vascular calcifications are present. No renal calculi. No ureteral calculi. No pneumoperitoneum or pneumatosis. There is a right total hip arthroplasty. IMPRESSION: Persistent small bowel obstruction pattern.
--- NOTE | 2023-11-08 11:13 | Nephrology Progress Note ---
Date of Service November 08, 2023 Assessment & Plan (1) History of kidney transplant: Plan: Patient with history of living related kidney transplant in 2012 with excellent graft function. Creatinine of 1.28 today. Electrolytes are stable. Will reduce Plasma-Lyte to 75 mL/h. Continue home immunosuppression regimen Prograf 0.5 mg every 12 daily with an additional Prograf 0.5 mg in the morning on Wednesday and Wednesday. Continue mycophenolate 360 mg 3 times daily and prednisone 5 mg daily. Monitor daily BMP. Avoid contrast (2) Immunocompromised: Plan: Will continue immunosuppression regimen as above. Continue infection prevention measures. Will follow Prograf level which is pending (3) Small bowel obstruction: Plan: Patient still on NG tube. He is adamant that he wants to eat or drink. I asked him to be patient until the surgeons clear him for liquid diet (4) Hypertension: Plan: Blood pressure is above target likely in setting of intravenous IV fluids. Will continue amlodipine 5 mg daily. Reduce the fluids to 75ml/hr as above. Admission and Anticipated Discharge Date Admission Date: November 06, 2023 Subjective Seen for renal transplant and management of immunosuppression. He feels well. Main complaint is weakness. He is asking for food or soda. Still has NG tube. at the bedside Review of Systems 2 Review of Systems: All other systems were reviewed and negative except as noted in HPI Physical Exam 2 Physical Exam: General exam: Appears comfortable, no acute distress. NG tube Clamped HEENT: Pupils are equal and reactive to light Neck: No JVD, neck is supple trachea is midline Respiratory system: Clear breath sounds bilaterally. Gastrointestinal: mildly distended, non tender, bowel sounds are present CVS: Regular rate and rhythm. No murmurs, rubs or gallops Musculoskeletal: No joint or muscle tenderness Extremities: Non tender, no edema, peripheral pulses are present Neuro: Oriented, no tremors, no focal neurological deficits Skin: No rashes Results & Data Vital Signs (Past 12 Hours) Vital Signs Temp Pulse Resp BP Pulse Ox O2 Del Method 11/08/23 07:56 36.5 C 80 18 168/80 H 94 Room Air Laboratory Results 11/08/23 06:00
--- NOTE | 2023-11-08 11:58 | XRay Report ---
KUB HISTORY: Small bowel obstruction. Follow-up. COMPARISON: KUB 11/06/2023. FINDINGS: Dilated gas-filled loops of small bowel are again seen within the abdomen consistent the pa tient's known small bowel obstruction. Nasogastric tube terminates in the distal stomach. There is ga s and stool within the nondistended colon. Surgical clips again noted within the midabdomen. Vascular calcifications are present. No renal calculi. No ureteral calculi. No pneumoperitoneum or pneumatos is. There is a right total hip arthroplasty. IMPRESSION: Persistent small bowel obstruction pattern. ACT 112: Negative or not required by law. Electronically signed by: Vinny Del Valle M.D. 11/08/2023 11:57 AM
--- NOTE | 2023-11-08 14:16 | Pharmacy Report ---
Pharmacy Glycemic Short Note 2 - Date of Service November 08, 2023 - Glycemic Short BSG Results (Last 24 hours): 11/07/23 11/07/23 11/08/23 18:01 21:27 00:05 Glucose POC Glucose 159 H 149 H 156 H 11/08/23 11/08/23 11/08/23 05:49 06:00 12:06 Glucose 174 H POC Glucose 165 H 175 H OUTPATIENT ANTIDIABETIC REGIMEN: * Tresiba 8 units SC HS * Fiasp w/ meals up to 20 units daily (insulin to carb ratio of 1 unit per 15 grams CHO) * Metformin 1000 mg PO qAM, 500 mg PO qPM HbA1c: 7.3% (11/06/23) ASSESSMENT: 11/07: * Kwame received 11 units of insulin yesterday (6 were basal) * Fasting BSG acceptable, continue current regimen * No changes to Novolog at this time. He is continued on his home prednisone dosage, still NPO 11/05: * TZ is a 62 year old male w/ T1DM s/p failed pancreas transplant * Admitted overnight w/ SBO and is currently NPO * Received 1/2 of home basal dose this morning, will allow for scale up to patient's reported home dose * Surgery recommending transfer to tertiary care center PLAN FOR INPATIENT GLYCEMIC CONTROL: * Hold outpatient oral diabetes medications * Basal insulin * Lantus 4 units SC x 1 this morning * Lantus 0-2-4 units SC HS (see EHR for details) * Bolus insulin * NovoLog per scale ACHS or Q6hrs while NPO * Goal Range: Low 110 mg/dL - High 140 mg/dL * Correction Factor: 30 mg/dL/unit * Nutritional / Prandial insulin per carb ratio of 1 unit per 15 grams CHO consumed
[2023-11-08] MEDS: LORazepam 0.5 MG in SYRINGE 0.25 ML IV PRN (14:18)
--- NOTE | 2023-11-08 15:40 | Hospitalist Progress Note ---
Date of Service November 08, 2023 Assessment & Plan (1) Small bowel obstruction: Plan: 62-year-old male with past med history significant for type 1 diabetes diagnosed at age 15, diabetic chronic kidney disease, hypertension, mild aortic regurgitation, mild CAD, GERD, legally blind, anemia of chronic renal disease, status post kidney transplant with a donor in 2003 which lasted until 2007 and then required hemodialysis until 2011. Status post living related kidney transplant 2011. 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 Patient did not had any bowel obstruction in the past. The pain started at 5 PM. Associated w ith nausea and vomiting. He vomited a couple of times. Last bowel movement was yesterday evening. No fevers. No headache. No runny nose or sore throat. No cough. No chest pain or shortness of breath. Currently hemodynamics are okay. Family is in the room. Small bowel obstruction Complex history with multiple transplants: Kidney, pancreas Immunocompromised state --CT BAD:Moderate grade small bowel obstruction with dilated air/fluid-filled small bowel loops as described above. A distended urinary bladder. -- KUB:Persistent small bowel obstruction. -- Continue NG tube, bowel rest, IV fluids Pain control Appreciate surgery input KUB today showed persistent small bowel obstruction Plan for small bowel follow-through today Surgery following Type 1 diabetes Failed pancreas transplant HbA1c 7.3 Continue Lantus and sliding scale Glycemic pharmacy consult Monitor blood glucose levels S/p kidney transplant Continue transplant medications Tacrolimus level pending Appreciate nephrology input Cr 1.28 today Avoid nephrotoxic agents as able Hypertension BP elevated Added amlodipine IV hydralazine as needed monitor BP Hyperlipidemia On statin BPH On Flomax Monitor for any retention Mild CAD On aspirin, and statin Depression On Zoloft Anemia of chronic kidney disease Hb at baseline Monitor DVT Px: Heparin SQ CODE STATUS Full code Admission and Anticipated Discharge Date Admission Date: November 06, 2023 Subjective Patient is seen and examined at bedside + Flatus, no BM today KUB today showed persistent small bowel obstruction Patient denies any significant abdominal pain Discussed with patient's family at bedside Denies any chest pain, dyspnea, dizziness Reports nausea with medications Review of Systems Review of Systems: All systems reviewed & are unremarkable except as noted in Subjective Physical Exam Physical Exam: Physical Exam: Vitals signs as noted above General Appearance:Moderately built and nourished, no apparent distress Head: normocephalic, Atraumatic, +NG tube Eyes: normal inspection, legally blind Neck: supple, Trachea midline Respiratory/Chest: Normal breath sounds, CTA, No accessory muscle use Cardiovascular: S1, S2, No murmur Abdomen/GI:Soft, distended, non tender, decreased bowel sounds Extremities/Musculoskeletal:normal inspection, no edema Neurologic/Psych:AAOX3, grossly no focal neurological deficits Skin: normal color, warm Results & Data Results & Data Vital Signs (Past 12 Hours) Vital Signs Temp Pulse Pulse Resp BP Pulse Ox O2 Del Method 11/08/23 15:18 37.3 C 85 16 164/76 H 93 Room Air 11/08/23 12:55 37.2 C 82 18 158/60 H 95 Room Air 11/08/23 07:56 36.5 C 80 18 168/80 H 94 Room Air Laboratory Results BMP 11/08/23 06:00 Sodium 135 L Potassium 4.0 Chloride 98 Carbon Dioxide 27 BUN 26 H Creatinine 1.28 D Glucose 174 H Calcium 9.3
[2023-11-08] MEDS: PROMETHAZINE 12.5 MG/50.5 ML BAG IV STA (23:26)
[2023-11-09 06:51] LABS: Hematocrit (blood only) 42.9 % (42.0-52.0); Hemoglobin 14.4 g/dl (14.0-18.0); Mean Corpuscular Hemoglobin 29.7 pg (25.0-34.0); Mean Corpuscular Hgb Conc 33.6 g/dL (32.0-36.0); Mean Corpuscular Volume 88.5 fL (80.0-100.0); Mean Platelet Volume 11.3 fL (9.4-12.4); Platelet Count 126 K/uL (130-400); RDW Coefficient of Variation 12.9 % (11.5-14.5); RDW Standard Deviation 41.8 fL (36.4-46.3); Red Blood Count 4.85 M/uL (4.70-6.10)
[2023-11-09 07:20] LABS: BUN Creatinine Ratio 32.3 (10-20); Calcium 8.4 mg/dl (8.6-10.3); Creatinine Clr Calc Pharmacy 50.1 ml/min; Est GFR (African American) 54.8 ml/min; Est GFR (Non-African American) 47.3 ml/min; Magnesium 1.9 mg/dl (1.7-2.4); Potassium 3.5 mmol/L (3.5-5.1)
--- NOTE | 2023-11-09 08:56 | Hospitalist Progress Note ---
Date of Service November 09, 2023 Assessment & Plan (1) Small bowel obstruction: Plan: 62-year-old male with past med history significant for type 1 diabetes diagnosed at age 15, diabetic chronic kidney disease, hypertension, mild aortic regurgitation, mild CAD, GERD, legally blind, anemia of chronic renal disease, status post kidney transplant with a donor in 2003 which lasted until 2007 and then required hemodialysis until 2011. Status post living related kidney transplant 2011. 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 Patient did not had any bowel obstruction in the past. The pain started at 5 PM. Associated w ith nausea and vomiting. He vomited a couple of times. Last bowel movement was yesterday evening. No fevers. No headache. No runny nose or sore throat. No cough. No chest pain or shortness of breath. Currently hemodynamics are okay. Family is in the room. Small bowel obstruction Complex history with multiple transplants: Kidney, pancreas Immunocompromised state --CT BAD:Moderate grade small bowel obstruction with dilated air/fluid-filled small bowel loops as described above. A distended urinary bladder. -- KUB:Persistent small bowel obstruction. 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 Continue Lantus and sliding scale Monitor blood glucose levels Acute Kidney Injury Likely due to contrast-induced nephropathy, volume depletion in setting of SBO H/O kidney transplant X2 Tacrolimus level pending Continue transplant medications Appreciate nephrology input Cr 1.55 today Lasix on hold Avoid nephrotoxic agents as able Continue IV fluids per nephrology Monitor renal function closely Hypertension BP variable Amlodipine discontinued Started on metoprolol Monitor BP Hyperlipidemia On statin BPH On Flomax Monitor for any retention Mild CAD On aspirin, and statin Depression On Zoloft Anemia of chronic kidney disease Hb at baseline Monitor DVT Px: Heparin SQ CODE STATUS Full code Admission and Anticipated Discharge Date Admission Date: November 06, 2023 Subjective Patient is seen and examined at bedside Patient had multiple bowel movements overnight Had transient tachycardia this morning asymptomatic Denied any nausea, vomiting, abdominal pain Discussed with surgery and cardiology today Patient also denied any chest pain, dyspnea, dizziness Review of Systems Review of Systems: All systems reviewed & are unremarkable except as noted in Subjective Physical Exam Physical Exam: Physical Exam: Vitals signs as noted above General Appearance:Moderately built and nourished, no apparent distress Head: normocephalic, Atraumatic, +NG tube Eyes: normal inspection, legally blind Neck: supple, Trachea midline Respiratory/Chest: Normal breath sounds, CTA, No accessory muscle use Cardiovascular: S1, S2, No murmur Abdomen/GI:Soft, mildly distended, non tender, + bowel sounds Extremities/Musculoskeletal:normal inspection, no edema Neurologic/Psych:AAOX3, grossly no focal neurological deficits Skin: normal color, warm Results & Data Results & Data Vital Signs (Past 12 Hours) Vital Signs Temp Pulse Resp BP Pulse Ox O2 Del Method 11/09/23 07:24 36.6 C 146 H 119/77 93 Room Air 11/08/23 21:25 37.4 C 60 18 149/78 H 94 Room Air Laboratory Results Short CBC 11/09/23 Range/Units 06:12 WBC 5.00 (4.8-10.8) K/ul Hgb 14.4 (14.0-18.0) g/dl Hct 42.9 (42.0-52.0) % Plt Count 126 L (130-400) K/uL BMP 11/09/23 06:12 Sodium 136 Potassium 3.5 Chloride 98 Carbon Dioxide 28 BUN 50 H D Creatinine 1.55 H Glucose 164 H Calcium 8.4 L
--- NOTE | 2023-11-09 09:03 | Surgery Progress Note ---
Date of Service November 09, 2023 Assessment & Plan (1) Small bowel obstruction: (2) History of kidney transplant: (3) History of pancreas transplant: (4) Immunocompromised: Plan 62-year-old gentleman with a small bowel obstruction, most likely adhesive. This is a very complex transplant patient he was had multiple operations for transplant in his life. He currently has a functioning pancreas and kidney transplant and is on immunosuppression with tacrolimus, mycophenolate, and prednisone. He has been unable to take his medication due to the obstruction. This is a very complex situation given his kidney and pancreas transplant. He should in all rights be transferred to a tertiary care center with a transplant program that can manage the immunosuppression much more closely. Even slightly decreased levels of tacrolimus can precipitate failure of a kidney transplant. Also given his numerous prior transplant operations and immunosuppression, if he requires any surgical intervention, he will need to be transferred to a tertiary care center. I would strongly suggest transfer to tertiary care with transplant services available to more closely manage his immunosuppression. We will continue to follow while he is here. 11/09/23 minimal NGT output since last shift +return of bowel function with multiple bowel movements and passing gas no abdominal pain went into afib this am Plan: cance SBFT remove NGT start clear liquids, advised to go slow continue medical management Discussed with dr. rebolledo who agrees with above Admission and Anticipated Discharge Date Admission Date: November 06, 2023 Supervising Physician Co-Signing Physician Notes I have seen and examined the patient personally and agree with the above assessment and plan. Overnight he had multiple bowel movements and flatus. On exam he has no abdominal tenderness. We will cancel the small bowel follow- through, remove NG tube, advance diet as tolerated. We will continue to monitor. Subjective feeling better today no abdominal pain nausea due to anxiety but better than yesterday has had multiple loose bowel movements and passing gas per nurse, patient being transferred to PCU,went into afib this morning Physical Exam 2 Constitutional: WD/WN, vitals as above cooperative, comfortable and + overweight; no acute distress and not ill appearing Gastrointestinal (Abdomen): Inspection/Auscultation: abdomen normal to inspection and + abdominal surgical scar; abdomen not distended Percussion/Palpation: abdomen soft; abdomen nontender, no guarding, abdomen not rigid and abdomen not firm Psychiatric: Orientation: alert and oriented x 3 Results & Data Vital Signs (Past 12 Hours) Vital Signs Temp Pulse Resp BP Pulse Ox O2 Del Method 11/09/23 07:24 36.6 C 146 H 119/77 93 Room Air 11/08/23 21:25 37.4 C 60 18 149/78 H 94 Room Air Laboratory Results 11/09/23 11/09/23 11/09/23 Range/Units 11:32 06:12 05:42 WBC 5.00 (4.8-10.8) K/ul RBC 4.85 (4.70-6.10) M/uL Hgb 14.4 (14.0-18.0) g/dl Hct 42.9 (42.0-52.0) % MCV 88.5 (80.0-100.0) fL MCH 29.7 (25.0-34.0) pg MCHC 33.6 (32.0-36.0) g/dL RDW Std Deviation 41.8 (36.4-46.3) fL RDW Coeff of Samra 12.9 (11.5-14.5) % Plt Count 126 L (130-400) K/uL MPV 11.3 (9.4-12.4) fL Sodium 136 (136-145) mmol/L Potassium 3.5 (3.5-5.1) mmol/L Chloride 98 (98-107) mmol/L Carbon Dioxide 28 (21-32) mmol/L Anion Gap 10 (3-11) BUN 50 H D (6-23) mg/dl Creatinine 1.55 H (0.6-1.4) mg/dl Est Cr Clr Drug Dosing 50.1 ml/min Est GFR ( Amer) 54.8 ml/min Est GFR (Non-Af Amer) 47.3 ml/min BUN/Creatinine Ratio 32.3 H (10-20) Glucose 164 H (70-99(Fasting)) mg/dl POC Glucose 160 H 156 H (70-99) mg/dl Calcium 8.4 L (8.6-10.3) mg/dl Magnesium 1.9 (1.7-2.4) mg/dl TSH 1.871 (0.300-4.500) uIu/ml 11/08/23 11/08/23 11/08/23 Range/Units 22:49 17:44 12:06 WBC (4.8-10.8) K/ul RBC (4.70-6.10) M/uL Hgb (14.0-18.0) g/dl Hct (42.0-52.0) % MCV (80.0-100.0) fL MCH (25.0-34.0) pg MCHC (32.0-36.0) g/dL RDW Std Deviation (36.4-46.3) fL RDW Coeff of Samra (11.5-14.5) % Plt Count (130-400) K/uL MPV (9.4-12.4) fL Sodium (136-145) mmol/L Potassium (3.5-5.1) mmol/L Chloride (98-107) mmol/L Carbon Dioxide (21-32) mmol/L Anion Gap (3-11) BUN (6-23) mg/dl Creatinine (0.6-1.4) mg/dl Est Cr Clr Drug Dosing ml/min Est GFR ( Amer) ml/min Est GFR (Non-Af Amer) ml/min BUN/Creatinine Ratio (10-20) Glucose (70-99(Fasting)) mg/dl POC Glucose 123 H 153 H 175 H (70-99) mg/dl Calcium (8.6-10.3) mg/dl Magnesium (1.7-2.4) mg/dl TSH (0.300-4.500) uIu/ml
[2023-11-09] MEDS: TACROLIMUS 0.5 MG CAP PO SCH (09:21)
[2023-11-09] MEDS: MAGNESIUM SULFATE / D5W 1 GM/100 ML BAG IV ONE (09:26)
[2023-11-09] MEDS: POTASSIUM CHLORIDE / WTR 10 MEQ/100 ML PLCT IV SCH (09:26)
[2023-11-09] MEDS ORDERED: METOPROLOL TARTRATE 1 MG/ML VIAL IV PRN (10:09)
[2023-11-09] MEDS ORDERED: Heparin IV Adult Wt-Based Standard *NO* INITIAL Bolus Protocol IV SCH (10:16)
[2023-11-09] MEDS: METOPROLOL TARTRATE 1 MG/ML VIAL IV STA (10:19)
--- NOTE | 2023-11-09 12:12 | Nephrology Progress Note ---
Date of Service November 09, 2023 Assessment & Plan (1) History of kidney transplant: Plan: Patient with history of living related kidney transplant in 2011 with excellent graft function. Creatinine of 1.55 today. Worsening renal function likely combination of contrast-induced nephropathy and intravascular volume depletion in setting of small bowel obstruction. Electrolytes are stable. Will continue Plasma-Lyte 75 mL/h. Continue home immunosuppression regimen Prograf 0.5 mg every 12hrs daily with an additional Prograf 0.5 mg in the morning on Wednesday and Wednesday. Continue mycophenolate 360 mg 3 times daily and prednisone 5 mg daily. Monitor daily BMP. Avoid contrast (2) Immunocompromised: Plan: Will continue immunosuppression regimen as above. Continue infection prevention measures. Will follow Prograf level which is pending (3) Small bowel obstruction: Plan: Patient is s/p NG tube. He is now on liquid diet (4) Hypertension: Plan: Blood pressure is good now. stop amlodipine. Admission and Anticipated Discharge Date Admission Date: November 06, 2023 Subjective Seen for immunosuppression management. He feels better today. NG tube is out. He is now on liquid diet. He is making urine. Review of Systems 2 Review of Systems: All other systems were reviewed and negative except as noted in HPI Physical Exam 2 Physical Exam: General exam: Appears comfortable, no acute distress HEENT: Pupils are equal and reactive to light Neck: No JVD, neck is supple trachea is midline Respiratory system: Clear breath sounds bilaterally. Gastrointestinal: Abdomen is soft, non distended, non tender, bowel sounds are present CVS: Regular rate and rhythm. No murmurs, rubs or gallops Musculoskeletal: No joint or muscle tenderness Extremities: Non tender, no edema, peripheral pulses are present Neuro: Oriented, no tremors, no focal neurological deficits Skin: No rashes Results & Data Vital Signs (Past 12 Hours) Vital Signs Temp Pulse Resp BP Pulse Ox O2 Del Method 11/09/23 10:44 36.7 C 81 20 116/72 94 Room Air 11/09/23 07:30 Room Air 11/09/23 07:24 36.6 C 146 H 119/77 93 Room Air Laboratory Results 11/09/23 06:12 11/09/23 06:12 WBC 5.00 RBC 4.85 MCV 88.5 MCH 29.7 MCHC 33.6 RDW Std Deviation 41.8 RDW Coeff of Samra 12.9 Plt Count 126 L MPV 11.3
[2023-11-09] MEDS: INSULIN ASPART PER UNIT CHARGE SC SCH (12:37)
--- NOTE | 2023-11-09 12:43 | Cardiology Consultation ---
Date of Consultation November 09, 2023 Assessment & Plan (1) Paroxysmal atrial flutter: (2) Small bowel obstruction: Plan 62-year-old male admitted with small bowel obstruction setting of prior abdominal surgeries. Underlying medical issues as outlined including prior renal and pancreatic transplants on immunosuppressive therapy This morning asymptomatically lapsed into atrial flutter with rapid response. Spontaneously converted to sinus rhythm on transfer to telemetry unit Currently asymptomatic Impression: 1. Paroxysmal atrial flutter first observed event per patient incited in the setting of acute illness, hypokalemia. Patient with spontaneous conversion to sinus rhythm Will review echo ordered. Add low-dose beta-roseanne to regimen orally. [id number] 2 score of 12. (Diabetes mellitus, borderline hypertension). Hold anticoagulation unless recurrence given acute illness. Anticoagulation with recurrent episode Continue to treat underlying concerns including continued immunosuppressive. Agree with hydration and electrolyte repletion Cardiology will follow History of Present Illness Reason for Consultation: Paroxysmal atrial fibrillation/flutter Requesting Physician: Dr. Rivera Attending Physician: Sarmad Rivera MD History of Present Illness Patient is a 62-year-old male with complex medical history which includes 1. Renal transplant 2003 donor, 2011 living donor. Pancreatic transplant 2004 2. Type 1 diabetes mellitus 3. Cardiac catheterization 2009 with minor nonobstructive coronary disease 4 Dyslipidemia Patient presented on this admission on 11/05/2023 with severe abdominal pain mu ltiple episodes of emesis and nausea and pattern consistent with small bowel obstruction. Patient managed with NG tube with relief of complaints This morning was noted to be tachycardic on routine vital signs. Patient not aware of irregular heart rhythm or racing heart rhythms. No chest pains, shortness of breath Patient transferred to monitor service where patient had spontaneously converted on arrival. Currently without complaints. No fevers or chills. No current nausea with diet recently expanded to clear liquids. No prior history of bleeding issues. No history of TIA or stroke, myocardial infarction angina or congestive heart failure. Prior echocardiograms with mild aortic insufficiency and preserved LV function. Allergies Allergy/AdvReac Type Severity Reaction Status Date / Time mycophenolate mofetil Allergy Severe KIDNEY Verified 11/05/23 23:48 [From CellCept] FAILED cephalexin Allergy Mild RASH Verified 11/05/23 23:48 Penicillins Allergy Mild RASH Verified 11/05/23 23:48 Home Medications Medication Instructions Recorded Confirmed Type furosemide 20 mg tablet 20 mg PO QAM 01/16/18 11/05/23 History mycophenolate sodium 360 mg 360 mg PO TID 01/16/18 11/05/23 History tablet,delayed release (Myfortic) sertraline 100 mg tablet 150 mg PO QAM 01/16/18 11/05/23 History aspirin 81 mg tablet,delayed 81 mg PO QAM 07/19/20 11/05/23 History release cyanocobalamin (vitamin B-12) 1,000 mcg PO QAM 07/19/20 11/05/23 History 1,000 mcg tablet (Vitamin B-12) prednisone 5 mg tablet 5 mg PO QAM 07/19/20 11/05/23 History tacrolimus 0.5 mg capsule, 0.5 mg PO UD 07/19/20 11/07/23 History immediate-release (Prograf) insulin degludec 100 unit/mL (3 8 unit subcut HS 01/07/22 11/05/23 History mL) subcutaneous pen (Tresiba FlexTouch U-100 insulin) atorvastatin 20 mg tablet 20 mg PO HS 11/05/23 11/05/23 History insulin aspart See Rx Instructions .Route .COMPLEX 11/05/23 11/05/23 History (niacinamide)(U-100) 100 unit/mL(3 mL) subcutaneous pen (Fiasp FlexTouch U-100 Insulin) metformin 500 mg tablet,extended 500 mg PO UD 11/05/23 11/05/23 History release 24 hr tamsulosin 0.4 mg capsule 0.4 mg PO QAM 11/05/23 11/05/23 History Patient History Medical History (Updated 11/09/23 @ 12:52 by Tone River MD) History of hemodialysis Surgical History History of hip replacement History of eye surgery History of cholecystectomy History of colonoscopy Family History Other Cancer Diabetes Heart disease Hypertension Seizure Social History Smoking Status: Never smoker Hx Alcohol Use: Yes Alcohol type: beer Hx Substance Use: No Preferred Language: Albanian Communication Ability: Effective Communication Ability Comment: legally blind Photo Colorer Required: No Beliefs That Will Affect Care: None marital status: Current Living Situation: Spouse Current Living Situation Comment: one story current occupational status: disabled Feels Safe at Home: Yes and No Assistive Devices: Cane and CPAP Results & Data Vital Signs (Past 12 Hours) Vital Signs Temp Pulse Resp BP Pulse Ox O2 Del Method 11/09/23 10:44 36.7 C 81 20 116/72 94 Room Air 11/09/23 07:30 Room Air 11/09/23 07:24 36.6 C 146 H 119/77 93 Room Air Laboratory Results Laboratory Results - last 24 hr 11/08/23 11/08/23 11/09/23 17:44 22:49 05:42 WBC RBC Hgb Hct MCV MCH MCHC RDW Std Deviation RDW Coeff of Samra Plt Count MPV Sodium Potassium Chloride Carbon Dioxide Anion Gap BUN Creatinine Est Cr Clr Drug Dosing Est GFR ( Amer) Est GFR (Non-Af Amer) BUN/Creatinine Ratio Glucose POC Glucose 153 H 123 H 156 H Calcium Magnesium TSH 11/09/23 11/09/23 06:12 11:32 WBC 5.00 RBC 4.85 Hgb 14.4 Hct 42.9 MCV 88.5 MCH 29.7 MCHC 33.6 RDW Std Deviation 41.8 RDW Coeff of Samra 12.9 Plt Count 126 L MPV 11.3 Sodium 136 Potassium 3.5 Chloride 98 Carbon Dioxide 28 Anion Gap 10 BUN 50 H D Creatinine 1.55 H Est Cr Clr Drug Dosing 50.1 Est GFR ( Amer) 54.8 Est GFR (Non-Af Amer) 47.3 BUN/Creatinine Ratio 32.3 H Glucose 164 H POC Glucose 160 H Calcium 8.4 L Magnesium 1.9 TSH 1.871 Diagnostic Findings Echocardiogram 05/08/2021 The left ventricular cavity size is normal. The LV wall thickness is normal. The left ventricular wall motion is normal. The qualitative LV ejection fraction is 55-59% (normal). The aortic valve is mildly calcified. Mild aortic valve regurgitation is present. There is mild mitral annular calcification. The mitral valve leaflets thickness is mildly increased.
[2023-11-09] MEDS: HEPARIN SODIUM/DEXTROSE 25,000 UNITS/500 ML BAG IV SCH (13:24)
[2023-11-09] MEDS: METOPROLOL TARTRATE 25 MG TAB PO SCH (13:31)
--- NOTE | 2023-11-09 15:27 | Electrocardiogram Report ---
Test Reason : Blood Pressure : */* mmHG Vent. Rate : 156 BPM Atrial Rate : 234 BPM P-R Int : * ms QRS Dur : 74 ms QT Int : 304 ms P-R-T Axes : * 34 36 degrees QTcB Int : 489 ms Atrial fibrillation with rapid ventricular response with premature ventricular or aberrantly conducte d complexes Nonspecific ST abnormality Abnormal ECG When compared with ECG of 05-Nov-2023 21:25, Atrial fibrillation has replaced Sinus rhythm Vent. rate has increased by 92 bpm Confirmed by Lev Collazo ([id number]) on 11/09/2023 3:27:50 PM Referred By: REFERRED SELF Confirmed By: Lev Collazo
--- NOTE | 2023-11-09 15:28 | Electrocardiogram Report ---
Test Reason : Blood Pressure : */* mmHG Vent. Rate : 83 BPM Atrial Rate : 83 BPM P-R Int : 120 ms QRS Dur : 78 ms QT Int : 396 ms P-R-T Axes : 6 6 50 degrees QTcB Int : 465 ms Normal sinus rhythm Normal ECG When compared with ECG of 05-Nov-2023 21:25, Nonspecific T wave abnormality now evident in Inferior leads Nonspecific T wave abnormality, worse in Lateral leads Confirmed by Lev Collazo ([id number]) on 11/09/2023 3:28:09 PM Referred By: REFERRED SELF Confirmed By: Lev Collazo
[2023-11-09] MEDS: HEPARIN SOD 5,000 UNIT/0.5 ML VIAL SQ SCH (21:47)
[2023-11-10 03:44] VITALS: TEMP 98.2
[2023-11-10 06:27] LABS: Hematocrit (blood only) 40.2 % (42.0-52.0); Hemoglobin 13.3 g/dl (14.0-18.0); Mean Corpuscular Hemoglobin 30.2 pg (25.0-34.0); Mean Corpuscular Hgb Conc 33.1 g/dL (32.0-36.0); Mean Corpuscular Volume 91.2 fL (80.0-100.0); Mean Platelet Volume 11.1 fL (9.4-12.4); Platelet Count 122 K/uL (130-400); RDW Coefficient of Variation 13.2 % (11.5-14.5); RDW Standard Deviation 44.4 fL (36.4-46.3); Red Blood Count 4.41 M/uL (4.70-6.10); White Blood Count 3.96 K/ul (4.8-10.8)
[2023-11-10 06:32] LABS: BUN Creatinine Ratio 38.8 (10-20); Calcium 8.4 mg/dl (8.6-10.3); Creatinine Clr Calc Pharmacy 59.2 ml/min; Est GFR (African American) 73.9 ml/min; Est GFR (Non-African American) 63.8 ml/min; Magnesium 2.3 mg/dl (1.7-2.4); Potassium 4.1 mmol/L (3.5-5.1)
--- NOTE | 2023-11-10 07:49 | Pharmacy Report ---
Pharmacy Glycemic Short Note 2 - Date of Service November 10, 2023 - Glycemic Short BSG Results (Last 24 hours): 11/09/23 11/09/23 11/09/23 11:32 16:27 20:09 Glucose POC Glucose 160 H 157 H 148 H 11/10/23 05:42 Glucose 126 H POC Glucose OUTPATIENT ANTIDIABETIC REGIMEN: * Tresiba 8 units SC HS * Fiasp w/ meals up to 20 units daily (insulin to carb ratio of 1 unit per 15 grams CHO) * Metformin 1000 mg PO qAM, 500 mg PO qPM HbA1c: 7.3% (11/06/23) ASSESSMENT: 11/09: * Patient ordered a diet yesterday, although PO intake was minimal * BSG's ranged 123-175 mg/dL * No change to Novolog for now - currently ordered home CHO ratio * Am fasting BSG in goal range today after 4+4 units of Lantus yesterday. However, will adjust basal to try to get back to home schedule of once daily dosing @ HS 11/07: * Kwame received 11 units of insulin yesterday (6 were basal) * Fasting BSG acceptable, continue current regimen * No changes to Novolog at this time. He is continued on his home prednisone dosage, still NPO 11/05: * TZ is a 62 year old male w/ T1DM s/p failed pancreas transplant * Admitted overnight w/ SBO and is currently NPO * Received 1/2 of home basal dose this morning, will allow for scale up to patient's reported home dose * Surgery recommending transfer to tertiary care center PLAN FOR INPATIENT GLYCEMIC CONTROL: * Basal insulin * Lantus 6-8 units at dinner today, then scheduled ongoing at HS starting tomorrow * Bolus insulin * NovoLog per scale ACHS or Q6hrs while NPO * Goal Range: Low 110 mg/dL - High 140 mg/dL * Correction Factor: 30 mg/dL/unit * Nutritional / Prandial insulin per carb ratio of 1 unit per 15 grams CHO consumed
--- NOTE | 2023-11-10 08:47 | Surgery Progress Note ---
Date of Service November 10, 2023 Assessment & Plan (1) Small bowel obstruction: (2) History of kidney transplant: (3) History of pancreas transplant: (4) Immunocompromised: Plan 62-year-old gentleman with a small bowel obstruction, most likely adhesive. This is a very complex transplant patient he was had multiple operations for transplant in his life. He currently has a functioning pancreas and kidney transplant and is on immunosuppression with tacrolimus, mycophenolate, and prednisone. He has been unable to take his medication due to the obstruction. This is a very complex situation given his kidney and pancreas transplant. He should in all rights be transferred to a tertiary care center with a transplant program that can manage the immunosuppression much more closely. Even slightly decreased levels of tacrolimus can precipitate failure of a kidney transplant. Also given his numerous prior transplant operations and immunosuppression, if he requires any surgical intervention, he will need to be transferred to a tertiary care center. I would strongly suggest transfer to tertiary care with transplant services available to more closely manage his immunosuppression. We will continue to follow while he is here. 11/10/23 +return of bowel function no abdominal pain benign abdominal examination Plan: Advance to low fiber diet continue medical management our services signing off, please call with questions/concerns Discussed with dr. rebolledo who agrees with above Admission and Anticipated Discharge Date Admission Date: November 06, 2023 Subjective feeling good, ready to go home no abdominal pain no nausea or vomiting tolerated clear liquids, wants regular food another large bowel movement last night, passing gas Physical Exam Constitutional: WD/WN, vitals as above + obese, cooperative and comfortable; no acute distress and not ill appearing Gastrointestinal (Abdomen): Inspection/Auscultation: abdomen normal to inspection and + abdominal surgical scar (multiple scars); abdomen not distended Percussion/Palpation: abdomen soft; abdomen nontender, no guarding, abdomen not rigid and abdomen not firm Skin: no rashes, warm and dry Psychiatric: Orientation: alert and oriented x 3 Results & Data Vital Signs (Past 12 Hours) Vital Signs Temp Pulse Pulse Resp BP Pulse Ox O2 Del Method 11/10/23 08:00 36.8 C 62 16 122/68 97 Room Air 11/10/23 03:43 36.8 C 62 14 132/76 96 Room Air 11/10/23 00:53 Room Air 11/09/23 23:00 36.9 C 64 14 128/63 95 Room Air 11/09/23 22:29 64 Laboratory Results 11/10/23 11/10/23 11/09/23 Range/Units 07:45 05:42 20:09 WBC 3.96 L (4.8-10.8) K/ul RBC 4.41 L (4.70-6.10) M/uL Hgb 13.3 L (14.0-18.0) g/dl Hct 40.2 L (42.0-52.0) % MCV 91.2 (80.0-100.0) fL MCH 30.2 (25.0-34.0) pg MCHC 33.1 (32.0-36.0) g/dL RDW Std Deviation 44.4 (36.4-46.3) fL RDW Coeff of Samra 13.2 (11.5-14.5) % Plt Count 122 L (130-400) K/uL MPV 11.1 (9.4-12.4) fL Sodium 135 L (136-145) mmol/L Potassium 4.1 (3.5-5.1) mmol/L Chloride 100 (98-107) mmol/L Carbon Dioxide 31 (21-32) mmol/L Anion Gap 4 (3-11) BUN 47 H (6-23) mg/dl Creatinine 1.21 D (0.6-1.4) mg/dl Est Cr Clr Drug Dosing 59.2 ml/min Est GFR ( Amer) 73.9 ml/min Est GFR (Non-Af Amer) 63.8 ml/min BUN/Creatinine Ratio 38.8 H (10-20) Glucose 126 H (70-99(Fasting)) mg/dl POC Glucose 134 H 148 H (70-99) mg/dl Calcium 8.4 L (8.6-10.3) mg/dl Magnesium 2.3 (1.7-2.4) mg/dl TSH (0.300-4.500) uIu/ml 11/09/23 11/09/23 11/09/23 Range/Units 16:27 11:32 06:12 WBC (4.8-10.8) K/ul RBC (4.70-6.10) M/uL Hgb (14.0-18.0) g/dl Hct (42.0-52.0) % MCV (80.0-100.0) fL MCH (25.0-34.0) pg MCHC (32.0-36.0) g/dL RDW Std Deviation (36.4-46.3) fL RDW Coeff of Samra (11.5-14.5) % Plt Count (130-400) K/uL MPV (9.4-12.4) fL Sodium (136-145) mmol/L Potassium (3.5-5.1) mmol/L Chloride (98-107) mmol/L Carbon Dioxide (21-32) mmol/L Anion Gap (3-11) BUN (6-23) mg/dl Creatinine (0.6-1.4) mg/dl Est Cr Clr Drug Dosing ml/min Est GFR ( Amer) ml/min Est GFR (Non-Af Amer) ml/min BUN/Creatinine Ratio (10-20) Glucose (70-99(Fasting)) mg/dl POC Glucose 157 H 160 H (70-99) mg/dl Calcium (8.6-10.3) mg/dl Magnesium (1.7-2.4) mg/dl TSH 1.871 (0.300-4.500) uIu/ml
--- NOTE | 2023-11-10 09:22 | Electrocardiogram Report ---
Test Reason : Blood Pressure : */* mmHG Vent. Rate : 56 BPM Atrial Rate : 56 BPM P-R Int : 122 ms QRS Dur : 78 ms QT Int : 464 ms P-R-T Axes : 13 13 43 degrees QTcB Int : 447 ms Sinus bradycardia Poor R wave progression, consider anterior CT vs. lead placement vs. LVH Abnormal ECG When compared with ECG of 09-Nov-2023 12:59, Vent. rate has decreased by 27 bpm Nonspecific T wave abnormality no longer evident in Lateral leads Confirmed by Lev Collazo ([id number]) on 11/10/2023 9:22:22 AM Referred By: REFERRED SELF Confirmed By: Lev Collazo
--- NOTE | 2023-11-10 11:37 | Nephrology Progress Note ---
Date of Service November 10, 2023 Assessment & Plan (1) History of kidney transplant: Plan: Patient with history of living related kidney transplant in 2011 with excellent graft function. Creatinine of 1.2 today. Electrolytes are stable. Will continue Plasma-Lyte 75 mL/h. Continue home immunosuppression regimen Prograf 0.5 mg every 12hrs daily with an additional Prograf 0.5 mg in the morning on Wednesday and Wednesday. Continue mycophenolate 360 mg 3 times daily and prednisone 5 mg daily. Monitor daily BMP. Avoid contrast. -From renal standpoint patient can be discharged once he tolerates solid diet. (2) Immunocompromised: Plan: Will continue immunosuppression regimen as above. Continue infection prevention measures. Will follow Prograf level which is pending (3) Small bowel obstruction: Plan: Patient is s/p NG tube. He is now on liquid diet. Diet advanced to solid diet. If patient tolerates solid diet, he can be discharged from renal standpoint (4) Hypertension: Plan: Blood pressure is good now. Continue metoprolol. Admission and Anticipated Discharge Date Admission Date: November 06, 2023 Subjective Seen for renal transplant and management of immunosuppression. He feels better today. He is tolerating liquid diet well. He has been advanced to solid diet. No abdominal pain no nausea or vomiting. Review of Systems 2 Review of Systems: All other systems were reviewed and negative except as noted in HPI Physical Exam 2 Physical Exam: General exam: Appears comfortable, no acute distress HEENT: Pupils are equal and reactive to light Neck: No JVD, neck is supple trachea is midline Respiratory system: Clear breath sounds bilaterally. Gastrointestinal: Abdomen is soft, non distended, non tender, bowel sounds are present CVS: Regular rate and rhythm. No murmurs, rubs or gallops Musculoskeletal: No joint or muscle tenderness Extremities: Non tender, no edema, peripheral pulses are present Neuro: Oriented, no tremors, no focal neurological deficits Skin: No rashes Results & Data Vital Signs (Past 12 Hours) Vital Signs Temp Pulse Pulse Resp BP Pulse Ox O2 Del Method 11/10/23 08:00 61 11/10/23 08:00 36.8 C 62 16 122/68 97 Room Air 11/10/23 03:43 36.8 C 62 14 132/76 96 Room Air 11/10/23 00:53 Room Air Laboratory Results 11/10/23 05:42 11/10/23 05:42 WBC 3.96 L RBC 4.41 L MCV 91.2 MCH 30.2 MCHC 33.1 RDW Std Deviation 44.4 RDW Coeff of Samra 13.2 Plt Count 122 L MPV 11.1
[2023-11-10 11:42] VITALS: BP 141/70; RESP 18; O2SAT 98
[2023-11-10 13:17] VITALS: PULSE 82
--- NOTE | 2023-11-10 13:22 | Discharge Summary ---
Discharge Summary Date of Service November 10, 2023 Principal Dx & Hospital Course #1 = Principal Diagnosis (1) Small bowel obstruction: 62-year-old male with past med history significant for type 1 diabetes diagnosed at age 15, diabetic chronic kidney disease, hypertension, mild aortic regurgitation, mild CAD, GERD, legally blind, anemia of chronic renal disease, status post kidney transplant with a donor in 2003 which lasted until 2007 and then required hemodialysis until 2011. Status post living related kidney transplant 2011. 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 Patient did not had any bowel obstruction in the past. The pain started at 5 PM. Associated with nausea and vomiting. He vomited a couple of times. Last bowel movement was yesterday evening. No fevers. No headache. No runny nose or sore throat. No cough. No chest pain or shortness of breath. Currently hemodynamics are okay. Family is in the room. Small bowel obstruction Complex history with multiple transplants: Kidney, pancreas Immunocompromised state --CT BAD:Moderate grade small bowel obstruction with dilated air/fluid-filled small bowel loops as described above. A distended urinary bladder. -- KUB:Persistent small bowel obstruction. 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 Continue Lantus and sliding scale Monitor blood glucose levels Acute Kidney Injury Likely due to contrast-induced nephropathy, volume depletion in setting of SBO H/O kidney transplant X2 Tacrolimus level pending Continue transplant medications Appreciate nephrology input Cr 1.55 today Lasix on hold Avoid nephrotoxic agents as able Continue IV fluids per nephrology Monitor renal function closely Hypertension BP variable Amlodipine discontinued Started on metoprolol Monitor BP Hyperlipidemia On statin BPH On Flomax Monitor for any retention Mild CAD On aspirin, and statin Depression On Zoloft Anemia of chronic kidney disease Hb at baseline Monitor DVT Px: Heparin SQ CODE STATUS Full code Notes For Next Care Provider Medication Changes From Visit No changes Admission HPI Per Admitting Provider 62-year-old male with past med history significant for type 1 diabetes diagnosed at age 15, diabetic chronic kidney disease, hypertension, mild aortic regurgitation, mild CAD, GERD, legally blind, anemia of chronic renal disease, status post kidney transplant with a donor in 2003 which lasted until 2007 and then required hemodialysis until 2011. Status post living related kidney transplant 2011. 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 Patient did not had any bowel obstruction in the past. The pain started at 5 PM. Associated with nausea and vomiting. He vomited a couple of times. Last bowel movement was yesterday evening. No fevers. No headache. No runny nose or sore throat. No cough. No chest pain or shortness of breath. Currently hemodynamics are okay. Family is in the room. Past medical history. As mentioned above Past surgical history. AV access, colonoscopy, incision of abscess to the right leg. Left subclavian vascular stent. Right eye laser surgery. Cholecystectomy. Removal of transplant renal allograft in 2011. Right total hip replacement. Pancreatic transplant. Transposition of kidney. Social history. . No smoking.' social drinking. No drug use. Family history. Mother had cancer. Diabetes. Heart disorder. Hypertension. Father had diabetes. Sister has epilepsy. Discharge Exam Alert O X 3. Pt seen with his spouse present Respiratory normal respiratory effort, lungs clear to auscultation Gastrointestinal (Abdomen) normal bowel sounds, soft, nontender, no hepatosplenomegaly Updated Medication List Medication Instructions Recorded Confirmed Type furosemide 20 mg tablet 20 mg PO QAM 01/16/18 11/05/23 History mycophenolate sodium 360 mg 360 mg PO TID 01/16/18 11/05/23 History tablet,delayed release (Myfortic) sertraline 100 mg tablet 150 mg PO QAM 01/16/18 11/05/23 History aspirin 81 mg tablet,delayed 81 mg PO QAM 07/19/20 11/05/23 History release cyanocobalamin (vitamin B-12) 1,000 mcg PO QAM 07/19/20 11/05/23 History 1,000 mcg tablet (Vitamin B-12) prednisone 5 mg tablet 5 mg PO QAM 07/19/20 11/05/23 History tacrolimus 0.5 mg capsule, 0.5 mg PO UD 07/19/20 11/07/23 History immediate-release (Prograf) insulin degludec 100 unit/mL (3 8 unit subcut HS 01/07/22 11/05/23 History mL) subcutaneous pen (Tresiba FlexTouch U-100 insulin) atorvastatin 20 mg tablet 20 mg PO HS 11/05/23 11/05/23 History insulin aspart See Rx Instructions .Route .COMPLEX 11/05/23 11/05/23 History (niacinamide)(U-100) 100 unit/mL(3 mL) subcutaneous pen (Fiasp FlexTouch U-100 Insulin) metformin 500 mg tablet,extended 500 mg PO UD 11/05/23 11/05/23 History release 24 hr tamsulosin 0.4 mg capsule 0.4 mg PO QAM 11/05/23 11/05/23 History Hospital Stay Data Consultations 11/06/23 02:58 ED Decision to Admit Stat 11/06/23 08:00 Consult General Surgery Routine 11/07/23 07:00 Consult Nephrology Routine 11/09/23 08:13 Consult Cardiology Routine Diagnostic Imagining Performed 11/05/23 21:45 CT abd pelvis IV con only Stat Pending Results Patient Have Any Pending Studies at Discharge: No Discharge Instructions Given to Patient (Per Discharging Provider) F/U with your PCP next week F/U with your business management manager and cardiology as directed Home Health Attestation I certify that this patient is under my care and that I, or a physicians office services assistant working with me, had a face to-face encounter that meets the home health [id number] encounter requirements with this patient. The encounter with the patient was in whole, or in part, for the following medical condition, which is the primary reason for home health care (list med ical condition): I certify that, based on my findings, the following services are medically necessary home health services: My clinical findings support the need for the above services because: Further, I certify that my clinical findings support that this patient is homebound (i.e. absences from home require considerable and taxing effort and are for medical reasons or uatsdin services or infrequently or of short duration when for other reasons) because: Certification for Home Health Services: Based on the above findings, I certify that this patient is confined to the home and needs intermittent senior living care, physical therapy and/or speech the rapy or continues to need occupational therapy. The patient is under my care, and I have initiated the establishment of the plan of care. This patient will be followed by a physician who will periodically review the plan of care. Total Time Total Time Spent Total Time Spent (In Minutes): 55
--- NOTE | 2023-11-10 13:49 | Cardiology Progress Note ---
Date of Service November 10, 2023 Assessment & Plan (1) Paroxysmal atrial flutter: (2) Small bowel obstruction: Plan 62-year-old male admitted with small bowel obstruction setting of prior abdominal surgeries. Underlying medical issues as outlined including prior renal and pancreatic transplants on immunosuppressive therapy This morning asymptomatically lapsed into atrial flutter with rapid response. Spontaneously converted to sinus rhythm on transfer to telemetry unit Currently asymptomatic Impression: 1. Paroxysmal atrial flutter first observed event per patient incited in the setting of acute illness, hypokalemia. Patient with spontaneous conversion to sinus rhythm Will review echo ordered. Add low-dose beta-roseanne to regimen orally. [id number] 2 score of 12. (Diabetes mellitus, borderline hypertension). Hold anticoagulation unless recurrence given acute illness. Anticoagulation with recurrent episode Continue to treat underlying concerns including continued immunosuppressive. Agree with hydration and electrolyte repletion 11/10/2023 No further episodes of atrial flutter or atrial fibrillation. Tolerating low- dose beta-roseanne Recommend continuing beta-roseanne. Discussed in detail with patient noted relatively low [id number] 2 score. Discussed indications for anticoagulation of arrhythmia would recur. Patient agrees with declining anticoagulation given low risk, inciting cause and risk for bleeding/injury with chronic vision impairment Admission and Anticipated Discharge Date Admission Date: November 06, 2023 Subjective Patient was seen and examined, chart, medications, telemetry reviewed. Feeling better today. Diet has been advanced. Moving bowels. No abdominal pain or discomfort No further tachypalpitations or arrhythmias. Blood pressure controlled. Tolerating medications. Telemetry sinus rhythm only Review of Systems Review of Systems: All systems reviewed & are unremarkable except as noted in HPI & below Physical Exam Constitutional: + obese; no acute distress Eyes: PERRL, conjunctivae normal, anicteric sclerae ENMT: external ear and nose normal, oropharynx normal Neck: trachea midline, no thyromegaly Respiratory: normal respiratory effort, lungs clear to auscultation Cardiovascular: Rate/Rhythm: regular rate and regular rhythm Heart Sounds: normal S1 and normal S2 Vessels: no JVD Extremities: no edema Gastrointestinal (Abdomen): normal bowel sounds, soft, nontender, no hepatosplenomegaly Results & Data Vital Signs (Past 12 Hours) Vital Signs Temp Pulse Pulse Pulse Resp BP Pulse Ox 11/10/23 13:16 36.8 C 82 70 18 141/70 H 98 11/10/23 11:00 36.8 C 70 18 141/70 H 98 11/10/23 08:00 61 11/10/23 08:00 36.8 C 62 16 122/68 97 11/10/23 03:43 36.8 C 62 14 132/76 96 O2 Del Method 11/10/23 13:16 11/10/23 11:00 Room Air 11/10/23 08:00 11/10/23 08:00 Room Air 11/10/23 03:43 Room Air Laboratory Results Laboratory Results - last 24 hr 11/06/23 11/09/23 11/09/23 17:17 16:27 20:09 WBC RBC Hgb Hct MCV MCH MCHC RDW Std Deviation RDW Coeff of Samra Plt Count MPV Sodium Potassium Chloride Carbon Dioxide Anion Gap BUN Creatinine Est Cr Clr Drug Dosing Est GFR ( Amer) Est GFR (Non-Af Amer) BUN/Creatinine Ratio Glucose POC Glucose 157 H 148 H Calcium Magnesium Tacrolimus 2.3 L 11/10/23 11/10/23 11/10/23 05:42 07:45 11:46 WBC 3.96 L RBC 4.41 L Hgb 13.3 L Hct 40.2 L MCV 91.2 MCH 30.2 MCHC 33.1 RDW Std Deviation 44.4 RDW Coeff of Samra 13.2 Plt Count 122 L MPV 11.1 Sodium 135 L Potassium 4.1 Chloride 100 Carbon Dioxide 31 Anion Gap 4 BUN 47 H Creatinine 1.21 D Est Cr Clr Drug Dosing 59.2 Est GFR ( Amer) 73.9 Est GFR (Non-Af Amer) 63.8 BUN/Creatinine Ratio 38.8 H Glucose 126 H POC Glucose 134 H 170 H Calcium 8.4 L Magnesium 2.3 Tacrolimus ECG Additional Comments: EKG today sinus bradycardia with poor progression otherwise normal tracing, rate 56 bpm
[2023-11-10] MEDS ORDERED: LANTUS PER UNIT CHARGE SC SCH (16:30)
== END 2023-11-10 14:55 | disposition home or self-care (01) | DRG 389 ==
LOC: ED 21:20 → 3E 11-06 03:22 → SUATTDRO 11-06 03:22 → 3E 11-06 04:20 → 2S 11-09 10:11
DX: E10.22 Type 1 diabetes mellitus with diabetic chronic kidney disease; I10 Essential (primary) hypertension; I25.10 Atherosclerotic heart disease of native coronary artery without angina pectoris; K56.50 Intestinal adhesions [bands], unspecified as to partial versus complete obstruction; Z94.83 Pancreas transplant status; N14.11 Contrast-induced nephropathy; Y92.239 Unspecified place in hospital as the place of occurrence of the external cause; Z88.1 Allergy status to other antibiotic agents; Z79.69 Long term (current) use of other immunomodulators and immunosuppressants; N40.0 Benign prostatic hyperplasia without lower urinary tract symptoms; N17.9 Acute kidney failure, unspecified; T50.8X5A Adverse effect of diagnostic agents, initial encounter; H54.8 Legal blindness, as defined in USA; D63.1 Anemia in chronic kidney disease; Z88.0 Allergy status to penicillin; D84.9 Immunodeficiency, unspecified; Z94.0 Kidney transplant status; Y84.2 Radiological procedure and radiotherapy as the cause of abnormal reaction of the patient, or of later complication, without mention of misadventure at the time of the procedure; Z79.84 Long term (current) use of oral hypoglycemic drugs; I48.92 Unspecified atrial flutter; Z79.82 Long term (current) use of aspirin

== ENCOUNTER 2024-10-08 22:19 | Observation (INO) ==
--- NOTE | 2024-10-08 22:36 | Emergency Department Note ---
ED Visit Note CHIEF COMPLAINT: Ankle pain HISTORY OF PRESENT ILLNESS: 62-year-old male with past med history significant for type 1 diabetes diagnosed at age 15, diabetic chronic kidney disease, hypertension, mild aortic regurgitation, mild CAD, GERD, legally blind, anemia of chronic renal disease, status post kidney transplant with a donor in 2003 which lasted until 2007 and then required hemodialysis until 2011. Status post living related kidney transplant 2011. Status post pancreas transplant in 2004 which is currently failed and back on insulin since last 1 to 2 years, patient lives at home with his after sustaining an injury to the left ankle and foot with a twisting, inversion motion when he fell off the ladder 3 steps landed and injured it. The patient complains of pain along the outside of the ankle. The patient denies pain of the foot. The patient rates the pain as throbbing and 7/10. The patient is not able to bear weight on the foot. Constant pain, worse with movement, weight bearing, and the dependent position. No knee pain, the patient is able to move their toes. No numbness or weakness of the foot, no laceration. The patient has had a previous fracture to this ankle. The patient has taken nothing for the pain. The patient denies any other injury. REVIEW OF SYSTEMS: A 6 system review of systems was completed with positives and pertinent negatives listed in the HPI. ALLERGIES: Penicillin, reviewed MEDICATIONS: Reviewed from nursing note PMH: Reviewed from nursing note SOCIAL HISTORY: Reviewed from nursing note PHYSICAL EXAM: Vital Signs: Reviewed Nurse's notes, vital signs stable. GENERAL: Pleasant gentleman, no acute distress, but appears in pain, well- developed, well-nourished. MENTAL STATUS: Alert, oriented to person place and time, and cooperative. MUSCULOSKELETAL: The left ankle is swollen and tender over the lateral malleolus, but the skin is intact and there is no ligamentous instability. There is no fifth metatarsal tenderness. There is no tenderness over the rest of the foot. There is no calf or tibia/fibular tenderness. There is no visual deformity. The foot and toes are warm and well-perfused. Dorsalis pedis pulse 2+. Sensation to pain and light touch is intact. Capillary refill less than 2 seconds. EMERGENCY DEPARTMENT COURSE: I examined the patient. Patient was given OxyIR. X-rays of the left ankle were reviewed by myself and shows comminuted calcaneal fracture per my independent interpretation. Consultation: I consulted orthopedics, Dr. Collazo and recommends bulky splint. He states he will follow the patient if he gets admitted and recommends CT of the heel. Medicine was consulted and case was discussed. Patient was admitted to the medical service for calcaneal fracture. Splinting Indication: Heel fracture Location: Left heel Type of fx: Closed comminuted Verbal consent obtained. Risks and benefits were explained with the usual customary discussion. The injured extremity was identified. The patient was prepped and measured for the placement of a stirrup and posterior bulky ortho- glass splint. Splint applied in the standard fashion over a layer of webril and secured using an elastic bandage. Set into a position of function. Normal neurovascular status after placement verified by me. The patient tolerated the procedure well and the care of the splint was discussed with the patient/family. No complications. Differential diagnosis includes sprain, strain, fracture, dislocation and other etiologies were considered. Exam and history seem consistent with calcaneus fracture. Orthopedics was consulted and recommends bulky splint and will follow the patient if he gets admitted. Patient was admitted to the medical service and is agreeable. Medicine was consulted. CT was reviewed and read by radiology. Leg was elevated. His pain was managed. .
--- NOTE | 2024-10-08 23:18 | XRay Report ---
Exam(s): XR RIGHT ANKLE, 3+ views, XR LEFT ANKLE, 3+ views EXAM: XR Left Ankle Complete, 3 or More Views CLINICAL HISTORY: Reason for exam: fall, pain. TECHNIQUE: Frontal, lateral and oblique views of the left ankle. COMPARISON: No relevant prior studies available. FINDINGS: Bones/joints: Acute fracture of the calcaneal body with extension to the subtalar joint. Disruption of the medial and lateral calcaneal qui. No ankle dislocation. No visible tibia or fibula fracture. Soft tissues: Lateral soft tissue swelling. Vasculature: Vascular calcifications. IMPRESSION: Acute fracture of the calcaneal body with extension to the subtalar joint. Disruption of the medial and lateral calcaneal qiu. Electronically signed by: Maynor Heath M.D. 10/08/24 23:17 PM
--- NOTE | 2024-10-08 23:58 | History & Physical Report ---
Date of Service October 08, 2024 Assessment & Plan (1) Closed fracture of left calcaneus: Plan: Assessment and plan below following discussion of case with ED provider and reviewing patient history/pertinent normal/abnormal diagnostic test results. 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 Collazo.) N.p.o. anticipation of procedure Basal bolus insulin adjusted for n.p.o. status, ISS BG goal 110-140 DVT prophylaxis. SCDs re: procedure Full code Patient requesting updates providers. Ms. Yvonne Jewell, contact #[phone]. Text document was generated using n[employer] voice recognition software. It may contain grammatical or spelling errors. Kindly contact undersigned for clarification of any documentation item in question. History of Present Illness Chief Complaint: Fall, left ankle/foot pain Primary Care Provider: Odalys Shook MD History obtained from patient, family, and records. 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 Last confinement 2023 for SBO. Resolved with conservative management. Patient fell off a ladder today. Patient meant to clean roof gutters. Patient twisted left ankle resulting in pain. No head trauma/LOC/chest pain,/SOB. Patient brought to ER for evaluation. Medical History as above Surgical History : Kidney transplant, pancreas transplant, hip surgery, vascular procedures, cholecystectomy, eye surgery Family History : DM, heart disease, epilepsy Personal/Social history : Non-smoker, occasional EtOH intake, disabled Allergies Allergy/AdvReac Type Severity Reaction Status Date / Time mycophenolate mofetil Allergy Severe KIDNEY Verified 10/08/24 23:19 [From CellCept] FAILED cephalexin Allergy Mild RASH Verified 10/08/24 23:19 Penicillins Allergy Mild RASH Verified 10/08/24 23:19 Home Medications Medication Instructions Recorded Confirmed Type furosemide 20 mg tablet 20 mg PO QAM 01/16/18 10/08/24 History mycophenolate sodium 360 mg 360 mg PO TID 01/16/18 10/08/24 History tablet,delayed release (Myfortic) sertraline 100 mg tablet 150 mg PO QAM 01/16/18 10/08/24 History aspirin 81 mg tablet,delayed 81 mg PO QAM 07/19/20 10/08/24 History release cyanocobalamin (vitamin B-12) 1,000 mcg PO QAM 07/19/20 10/08/24 History 1,000 mcg tablet (Vitamin B-12) prednisone 5 mg tablet 5 mg PO QAM 07/19/20 10/08/24 History tacrolimus 0.5 mg capsule, 0.5 mg PO DIRECTED 07/19/20 10/08/24 History immediate-release (Prograf) insulin degludec 100 unit/mL (3 8 unit subcut HS 01/07/22 10/08/24 History mL) subcutaneous pen (Tresiba FlexTouch U-100 insulin) atorvastatin 20 mg tablet 20 mg PO QAM 11/05/23 10/08/24 History metformin 500 mg tablet,extended 500 mg PO DIRECTED 11/05/23 10/08/24 History release 24 hr tamsulosin 0.4 mg capsule 0.4 mg PO QAM #90 caps 02/28/24 10/08/24 Rx cholecalciferol (vitamin D3) 50 50 mcg PO BID 10/08/24 10/08/24 History mcg (2,000 unit) capsule (Vitamin D3) insulin aspart U-100 100 unit/mL 0 sliding scale dose subcut 10/08/24 10/08/24 History (3 mL) subcutaneous pen DIRECTED tacrolimus 1 mg capsule, 1 mg PO 2XWK 10/08/24 10/08/24 History immediate-release (Prograf) Past Med/Surg History Problem List (Updated 10/08/24 @ 23:59 by Bethany Saleh PA-C) Closed fracture of left calcaneus (Acute) Paroxysmal atrial flutter Small bowel obstruction (Acute) BPH loc w urin obs/LUTS Nocturnal hypoxemia Indigestion (Chronic) Vision loss (Chronic) Diabetes mellitus type 1 (Chronic) ESRD (end stage renal disease) on dialysis (Chronic) Acute bronchitis History of kidney transplant (Acute) History of pancreas transplant (Acute) Sepsis Medical History (Updated 10/08/24 @ 23:59 by Bethany Saleh PA-C) Immunocompromised Hypertension History of hemodialysis Surgical History History of pancreas transplant History of kidney transplant History of hip replacement History of eye surgery History of cholecystectomy History of colonoscopy Family History Other Cancer Diabetes Heart disease Hypertension Seizure Social History Smoking Status: Never smoker Hx Alcohol Use: Yes Alcohol type: beer Hx Substance Use: No Preferred Language: Northern Irish Communication Ability: Effective Communication Ability Comment: legally blind 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: No Beliefs That Will Affect Care: Shinto Shinto Beliefs: Zoroastrian marital status: Current Living Situation: Spouse Current Living Situation Comment: one story current occupational status: disabled Feels Safe at Home: Yes Safety Concerns: Feels Safe At This Time Assistive Devices: Cane and Glasses Review of Systems Review of Systems: As per HPI, all other systems reviewed and negative Physical Exam Physical Exam: GENERAL: Obese, uncomfortable, pleasant, no respiratory distress SKIN: Normal color, warm HEENT: Bespectacled, pink palpebral conjunctivae, no ptosis, dry buccal mucosa NECK : Supple, no tenderness CHEST : CTA, no tenderness HEART : RRR, no obvious murmurs ABDOMEN: Some distention, nontender EXTREMITIES : LLE splint noted, no LE swelling/tenderness, palpable pulses, no other conspicuous deformities noted NEUROLOGIC : Coherent, no facial asymmetry, no other gross focality Results & Data Results & Data Vital Signs (Past 12 Hours) Vital Signs Temp Pulse Resp BP Pulse Ox O2 Del Method 10/08/24 22:24 36.8 C 76 18 140/65 98 Room Air Laboratory Results Impressions Ankle X-Ray 10/08/24 22:29 Exam(s): XR RIGHT ANKLE, 3+ views, XR LEFT ANKLE, 3+ views EXAM: XR Left Ankle Complete, 3 or More Views CLINICAL HISTORY: Reason for exam: fall, pain. TECHNIQUE: Frontal, lateral and oblique views of the left ankle. COMPARISON: No relevant prior studies available. FINDINGS: Bones/joints: Acute fracture of the calcaneal body with extension to the subtalar joint. Disruption of the medial and lateral calcaneal qiu. No ankle dislocation. No visible tibia or fibula fracture. Soft tissues: Lateral soft tissue swelling. Vasculature: Vascular calcifications. IMPRESSION: Acute fracture of the calcaneal body with extension to the subtalar joint. Disruption of the medial and lateral calcaneal qiu. Electronically signed by: Maynor Heath M.D. 10/08/24 23:[address] left ankle: There is an acute comminuted calcaneus fracture. Fracture demonstrates extension to the anterior and middle subtalar joints, with violation of the sustentaculum. There is comminution of the medial and lateral calcaneal qiu. There is posterior fracture extension through the calcaneal tuberosity (tongue-type). Fracture spares the calcaneocuboid articulation. There is surrounding hindfoot soft tissue swelling. No tendon entrapment is observed. No other fractures are visualized. There is no joint dislocation. IMPRESSION: Comminuted intra-articular calcaneus fracture as detailed above. (1) Closed fracture of left calcaneus Calcaneus location: body Encounter type: initial encounter Fracture alignment: displaced Qualified Code(s): S92.012A - Displaced fracture of body of left calcaneus, initial encounter for closed fracture
--- NOTE | 2024-10-09 | Emergency Department Note ---
ED Visit Note I was consulted by the Advanced Practice Provider. I personally made/approved the management plan and take responsibility for the patient management. This includes the aspects of: [-History/Physical] [-MDM] .
--- NOTE | 2024-10-09 00:26 | CT Scan Report ---
Exam(s): CT LEFT ANKLE Without Contrast EXAM: CT Left Lower Extremity Without Intravenous Contrast, Ankle CLINICAL HISTORY: Reason for exam: heel fx, ? extent. TECHNIQUE: Axial computed tomography images of the left ankle without intravenous contrast. CTDI is 25 mGy and DLP is 488 mGy-cm. Automated exposure control was utilized for the study. A dose lowering technique was utilized adhering to the principles of ALARA. COMPARISON: No relevant prior studies available. FINDINGS: There is an acute comminuted calcaneus fracture. Fracture demonstrates extension to the anterior and middle subtalar joints, with violation of the sustentaculum. There is comminution of the medial and lateral calcaneal qiu. There is posterior fracture extension through the calcaneal tuberosity (tongue-type). Fracture spares the calcaneocuboid articulation. There is surrounding hindfoot soft tissue swelling. No tendon entrapment is observed. No other fractures are visualized. There is no joint dislocation. IMPRESSION: Comminuted intra-articular calcaneus fracture as detailed above. Electronically signed by: Maynor Heaht M.D. 10/09/24 00:25 AM
[2024-10-09] MEDS: MoRPHine SULFATE 4 MG/ML 1 ML CARP\\VIAL IV PRN (00:46)
[2024-10-09] MEDS ORDERED: CARBOHYDRATES FOR HYPOGLYCEMIA PO PRN ×2 (01:12→01:15)
[2024-10-09] MEDS ORDERED: DEXTROSE 50% 50 ML SYRINGE IV PRN ×2 (01:12→01:15)
[2024-10-09] MEDS ORDERED: GLUCAGON FOR INJ 1 MG VIAL SQ PRN ×2 (01:12→01:15)
[2024-10-09] MEDS ORDERED: GLUCOSE 40% GEL 15 GM TUBE PO PRN ×2 (01:12→01:15)
[2024-10-09] MEDS ORDERED: GLUCOSE 10 TAB/TUBE PO PRN ×2 (01:12→01:15)
[2024-10-09] MEDS: MoRPHine SULFATE 4 MG/ML 1 ML CARP\\VIAL IV STA (01:29)
[2024-10-09] MEDS: ACETAMINOPHEN 1,000 MG/100 ML VIAL IV STA (01:44)
[2024-10-09 01:53] LABS: Hematocrit (blood only) 37.7 % (42.0-52.0); Hemoglobin 13.0 g/dl (14.0-18.0); Immature Granulocytes # (auto) 0.04 K/uL (0.01-0.20); Immature Granulocytes % (auto) 0.5 %; Mean Corpuscular Hemoglobin 31.5 pg (25.0-34.0); Mean Corpuscular Volume 91.3 fL (80.0-100.0); Platelet Count 140 K/uL (130-400); RDW Standard Deviation 44.2 fL (36.4-46.3); Red Blood Count 4.13 M/uL (4.70-6.10); White Blood Count 8.66 K/ul (4.8-10.8)
[2024-10-09] MEDS: INSULIN ASPART PER UNIT CHARGE SC SCH ×2 (01:54→12:47)
[2024-10-09 02:07] LABS: Anion Gap 7.0 (3-11); Blood Urea Nitrogen 33.0 mg/dl (6-23); Calcium 9.4 mg/dl (8.6-10.3); Carbon Dioxide 23.0 mmol/L (21-32); Chloride 104.0 mmol/L (98-107); Creatinine Clr Calc Pharmacy 73.7 ml/min; Glucose 142.0 mg/dl (70-99(Fasting)); Potassium 4.1 mmol/L (3.5-5.1); Sodium 134.0 mmol/L (136-145)
[2024-10-09] MEDS: HYDROmorphone INJ 1 MG/ML SYRINGE IV STA (02:37)
[2024-10-09] MEDS: SODIUM CHLORIDE 0.9% 1,000 ML IV ONE (02:50)
[2024-10-09] MEDS: ASPIRIN 81 MG ECTAB PO SCH (08:07)
[2024-10-09] MEDS: SERTRALINE HCL 50 MG TABLET PO SCH (08:08)
[2024-10-09] MEDS: MYCOPHENOLATE SODIUM 180 MG TAB PO SCH (08:08)
[2024-10-09] MEDS: CYANOCOBALAMIN (B-12) 500 MCG TABLET PO SCH (08:08)
[2024-10-09] MEDS: TACROLIMUS 1 MG CAP PO SCH (08:08)
[2024-10-09] MEDS: TAMSULOSIN HCL 0.4 MG CAP PO SCH (08:09)
[2024-10-09] MEDS: ATORVASTATIN 20 MG TAB PO SCH (08:09)
[2024-10-09] MEDS: PROMETHAZINE 6.25 MG/50.25 ML BAG IV PRN (09:28)
[2024-10-09] MEDS ORDERED: Nursing to Pharmacy Communication SCH (10:15)
[2024-10-09] MEDS: ACETAMINOPHEN 325 MG TAB PO PRN (12:23)
--- NOTE | 2024-10-09 13:01 | XRay Report ---
XR calcaneus LT min 2V CLINICAL HISTORY: post splint COMPARISON: 10/08/2024 FINDINGS: Interval splint. The calcaneal fracture has stable alignment. IMPRESSION: Stable alignment. ACT 112: Negative or not required by law. Electronically signed by: Rodrigo Garsia M.D. 10/09/2024 12:59 PM
--- NOTE | 2024-10-09 13:44 | Orthopedic Consultation ---
Date of Consultation October 09, 2024 Assessment & Plan (1) Closed fracture of left calcaneus: (2) Paroxysmal atrial flutter: (3) Small bowel obstruction: (4) BPH loc w urin obs/LUTS: (5) Nocturnal hypoxemia: (6) Diabetes mellitus type 1: (7) ESRD (end stage renal disease) on dialysis: (8) History of kidney transplant: (9) History of pancreas transplant: (10) Immunocompromised: (11) Hypertension: Plan Kwaem is a 63-year-old gentleman is quite medically complex with history of type 1 diabetes status post pancreas and kidney transplant. He has cardiac dysfunction in addition to his chronic renal disease. Patient presented to the emergency department last evening after a fall off of 3 steps of a ladder where he sustained a tongue variant fracture of his left calcaneus. Had a long discussion the patient guarding the nature of this injury. We discussed in great detail the pathoanatomy, pathophysiology, treatment options. Patient has had x-rays and CT scan done which demonstrated tongue variant calcaneus fracture. I expressed to him that congenital calcaneus fractures are fractures I would recommend operative management for as they result in loss of calcaneal height as well as fracture varus, however in this patient's fracture pattern, he has only a slight abnormality of his posterior facet and his fracture varus is not terrible. He has lost some calcaneal length and calcaneal height, however in evaluating the patient as a whole, I believe that his medical comorbidities put him at an extreme risk as it relates to perioperative complications from operative management. I discussed with him that surgical management for open reduction internal fixation of the left calcaneus while it will more reproducibly realign the calcaneus, carries with it risks that include but are not limited to loss of life/limb, DVT, incomplete relief of pain, in fection, wound healing complications, nonunion, malunion. Alternatives to surgical management be for nonoperative care. This would require 6 weeks of nonweightbearing In a splint followed by a cast. The advantage to nonoperative care for this patient is avoiding perioperative complications, however the disadvantage is a higher rate of posttraumatic osteoarthrosis of the subtalar joint and potentially deformity of his calcaneus which limits his ankle range of motion and make shoewear difficult. I did express to him that sometimes calcaneus fractures do require operative management if they are a true tongue type with pressure on the posterior skin, however this patient does not demonstrate any skin at risk, as such I do believe that the course of his treatment is a decision for him to make. After a thorough discussion of the risk, benefits, alternatives to surgical management, the patient is interested in pursuing nonoperative care. He understands the risks as it relates to nonoperative care and wishes to proceed. I will plan to see the patient back in the office in about 2 weeks for splint removal and casting. History of Present Illness Reason for Consultation: Left calcaneus fracture Attending Physician: Ashok Cao MD History of Present Illness 62-year-old male with past med history significant for type 1 diabetes diagnosed at age 15, diabetic chronic kidney disease, hypertension, mild aortic regurgitation, mild CAD, GERD, legally blind, anemia of chronic renal disease, status post kidney transplant with a donor in 2003 which lasted until 2007 and then required hemodialysis until 2011. Status post living related kidney transplant 2011. Status post pancreas transplant in 2004 which is currently failed and back on insulin since last 1 to 2 years, patient lives at home with his . Presented to the ER last evening after sustaining an injury to the left ankle and foot with a twisting, inversion motion when he fell off the ladder 3 steps landing on that side. The patient complains of pain along the outside of the ankle. The patient denies pain of the foot. The patient rates the pain as throbbing and 7/10. The patient is not able to bear weight on the foot. Constant pain, worse with movement, weight bearing, and the dependent position. No knee pain, the patient is able to move their toes. No numbness or weakness of the foot, no laceration. The patient has had a previous fracture to this ankle. The patient has taken nothing for the pain. The patient denies any additional signs of pain besides his left foot. Allergies Allergy/AdvReac Type Severity Reaction Status Date / Time mycophenolate mofetil Allergy Severe KIDNEY Verified 10/08/24 23:19 [From CellCept] FAILED cephalexin Allergy Mild RASH Verified 10/08/24 23:19 Penicillins Allergy Mild RASH Verified 10/08/24 23:19 Home Medications Medication Instructions Recorded Confirmed Type furosemide 20 mg tablet 20 mg PO QAM 01/16/18 10/08/24 History mycophenolate sodium 360 mg 360 mg PO TID 01/16/18 10/08/24 History tablet,delayed release (Myfortic) sertraline 100 mg tablet 150 mg PO QAM 01/16/18 10/08/24 History aspirin 81 mg tablet,delayed 81 mg PO QAM 07/19/20 10/08/24 History release cyanocobalamin (vitamin B-12) 1,000 mcg PO QAM 07/19/20 10/08/24 History 1,000 mcg tablet (Vitamin B-12) prednisone 5 mg tablet 5 mg PO QAM 07/19/20 10/08/24 History tacrolimus 0.5 mg capsule, 0.5 mg PO DIRECTED 07/19/20 10/08/24 History immediate-release (Prograf) insulin degludec 100 unit/mL (3 8 unit subcut HS 01/07/22 10/08/24 History mL) subcutaneous pen (Tresiba FlexTouch U-100 insulin) atorvastatin 20 mg tablet 20 mg PO QAM 11/05/23 10/08/24 History metformin 500 mg tablet,extended 500 mg PO DIRECTED 11/05/23 10/08/24 History release 24 hr tamsulosin 0.4 mg capsule 0.4 mg PO QAM #90 caps 02/28/24 10/08/24 Rx cholecalciferol (vitamin D3) 50 50 mcg PO BID 10/08/24 10/08/24 History mcg (2,000 unit) capsule (Vitamin D3) insulin aspart U-100 100 unit/mL 0 sliding scale dose subcut 10/08/24 10/08/24 History (3 mL) subcutaneous pen DIRECTED tacrolimus 1 mg capsule, 1 mg PO 2XWK 10/08/24 10/08/24 History immediate-release (Prograf) Patient History Medical History (Updated 10/08/24 @ 23:59 by Bethany Saleh PA-C) Immunocompromised Hypertension History of hemodialysis Surgical History History of pancreas transplant History of kidney transplant History of hip replacement History of eye surgery History of cholecystectomy History of colonoscopy Family History Other Cancer Diabetes Heart disease Hypertension Seizure Social History Smoking Status: Never smoker Hx Alcohol Use: Yes Alcohol type: beer Hx Substance Use: No Preferred Language: Slovenian Communication Ability: Effective Communication Ability Comment: legally blind 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 This demonstrates no signs of skin compromise. No open wounds appreciated. Tender to palpation at the calcaneus. Nontender in the midfoot. Nontender in the ankle. Results & Data Vital Signs (Past 12 Hours) Vital Signs Temp Pulse Resp BP Pulse Ox O2 Del Method 10/09/24 12:48 36.6 C 77 15 147/66 H 93 Room Air 10/09/24 07:39 36.6 C 63 16 147/66 H 92 Room Air 10/09/24 02:09 Room Air Diagnostic Findings X-rays of the left foot, ankle, calcaneus and CT scan of the left ankle personally interpreted and reviewed. These demonstrate an intra-articular tongue variant calcaneus fracture that is minimally displaced. The fracture does demonstrate calcaneal shortening and loss of calcaneal height, however minimal amount of fracture varus. (1) Closed fracture of left calcaneus Calcaneus location: body Encounter type: initial encounter Fracture alignment: displaced Qualified Code(s): S92.012A - Displaced fracture of body of left calcaneus, initial encounter for closed fracture
--- NOTE | 2024-10-09 14:44 | Hospitalist Progress Note ---
Date of Service October 09, 2024 Assessment & Plan (1) Closed fracture of left calcaneus: Plan: 63 yo M w/ PMH of CAD, valvular heart disease (mild MR/AR), PAF, hypertension, hyperlipidemia, JANET on CPAP, DM1, 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 He denied head trauma/LOC/SOB/Chest pain. He is being managed for the following: Traumatic left heel fracture Fall and left foot injury, see above. Orthopedics on board, plan for conservative management. Continue with pain medicine/PT OT/bowel regimen. Follow-up with orthopedics in 2 weeks time for splint removal and casting. Other chronic medical conditions: Continue with/resume home meds as and when able. 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 heparin as no plan for procedure. Full code Patient Ms. Yvonne Jewell, contact #[phone]. Text document was generated using [email or web address] voice recognition software. It may contain grammatical or spelling errors. Kindly contact undersigned for clarification of any documentation item in question. Admission and Anticipated Discharge Date Admission Date: October 08, 2024 Subjective Patient was seen and examined at bedside. Patient was lying in bed, on room air, NAD, resting comfortably. Patient reports operative site pain under control, reports eating okay. Physical Exam Physical Exam: GENERAL: Obese, NAD, pleasant, no respiratory distress SKIN: Normal color, warm HEENT: Bespectacled, pink palpebral conjunctivae, blind both eyes, no ptosis, moist buccal mucosa NECK : Supple, no tenderness CHEST : CTA, no tenderness HEART : RRR, no obvious murmurs ABDOMEN: No distention, nontender EXTREMITIES : LLE splint/dressing noted, no LE swelling/tenderness, palpable pulses, no other conspicuous deformities noted NEUROLOGIC : Coherent, no facial asymmetry, no other gross focality Results & Data Results & Data Vital Signs (Past 12 Hours) Vital Signs Temp Pulse Resp BP Pulse Ox O2 Del Method 10/09/24 12:48 36.6 C 77 15 147/66 H 93 Room Air 10/09/24 07:39 36.6 C 63 16 147/66 H 92 Room Air (1) Closed fracture of left calcaneus Calcaneus location: body Encounter type: initial encounter Fracture alignment: displaced Qualified Code(s): S92.012A - Displaced fracture of body of left calcaneus, initial encounter for closed fracture
[2024-10-09 20:00] VITALS: RESP 18
--- NOTE | 2024-10-09 20:04 | XRay Report ---
EXAM: XR hip LT 2V w pelvis CLINICAL HISTORY: Left hip pain, fall. TECHNIQUE: X-ray images of the left hip joints and pelvis were obtained in anteroposterior (AP) projection. Additional lateral view of left hip joint was obtained. COMPARISON: No prior studies available for comparison. FINDINGS: Pelvic Bones: Diffuse osteopenia. No evidence of fractures or dislocations. Acetabular structures appear normal and intact. No signs of acetabular fracture or dysplasia. Left femoral head is centered within the acetabulum. No evidence of fractures, avascular necrosis, or significant deformities. Hip Joints: Right hip arthroplasty. Prosthesis intact and well positioned. No complications or signs of hardware failure. Left hip joint reduced superior joint space and periacetabular osteophytes. Osteoarthritis. No evidence of hip dislocation or subluxation. Bilateral sacroiliac joint osteoarthritis. Symphysis Pubis: Symphysis pubis is normal and intact. No evidence of separation or widening. Soft Tissues: Vascular calcifications. Otherwise, visualized soft tissues are normal and unremarkable. Additional Findings: No other significant abnormalities noted. IMPRESSION: 1. No acute fractures or dislocations. 2. Diffuse osteopenia. 3. Intact right hip arthroplasty 4. Left hip joint and bilateral sacroiliac joint osteoarthritic changes. Disclaimer: A subtle bone abnormality or fracture may not be readily apparent on X-rays, thus clinical correlation and further imaging including follow-up CT, MRI, or follow-up X-rays are advised as needed. Electronically signed by Luiz Asher 10-09-2024 7:59 PM
[2024-10-09] MEDS: DOCUSATE SODIUM 100 MG CAP PO SCH (20:20)
[2024-10-09] MEDS: TACROLIMUS 0.5 MG CAP PO SCH (20:20)
[2024-10-09] MEDS: HEPARIN SOD 5,000 UNIT/0.5 ML VIAL SQ SCH (20:22)
[2024-10-09] MEDS: LANTUS PER UNIT CHARGE SC SCH (20:22)
[2024-10-09] MEDS: HYDROmorphone INJ 1 MG/ML SYRINGE IV PRN (22:20)
[2024-10-10 06:54] VITALS: BP 168/80; PULSE 75; TEMP 98.2; O2SAT 93
[2024-10-10 09:18] LABS: Hematocrit (blood only) 39.8 % (42.0-52.0); Hemoglobin 13.6 g/dl (14.0-18.0); Mean Corpuscular Hemoglobin 31.6 pg (25.0-34.0); Mean Corpuscular Volume 92.6 fL (80.0-100.0); Platelet Count 144 K/uL (130-400); RDW Standard Deviation 44.8 fL (36.4-46.3); Red Blood Count 4.30 M/uL (4.70-6.10); White Blood Count 7.48 K/ul (4.8-10.8)
[2024-10-10 09:32] LABS: Anion Gap 9.0 (3-11); Blood Urea Nitrogen 24.0 mg/dl (6-23); Calcium 8.7 mg/dl (8.6-10.3); Carbon Dioxide 22.0 mmol/L (21-32); Chloride 103.0 mmol/L (98-107); Creatinine Clr Calc Pharmacy 81.5 ml/min; Glucose 186.0 mg/dl (70-99(Fasting)); Potassium 4.3 mmol/L (3.5-5.1); Sodium 134.0 mmol/L (136-145)
[2024-10-10] MEDS: CALCIUM CARBONATE 500 MG CHEWABLE TAB PO ONE (09:45)
--- NOTE | 2024-10-10 12:34 | Discharge Summary ---
Date of Service October 10, 2024 Admission HPI Per Admitting Provider History obtained from patient, family, and records. 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 Last confinement 2023 for SBO. Resolved with conservative management. Patient fell off a ladder today. Patient meant to clean roof gutters. Patient twisted left ankle resulting in pain. No head trauma/LOC/chest pain,/SOB. Patient brought to ER for evaluation. Medical History as above Surgical History : Kidney transplant, pancreas transplant, hip surgery, vascular procedures, cholecystectomy, eye surgery Family History : DM, heart disease, epilepsy Personal/Social history : Non-smoker, occasional EtOH intake, disabled Admission Exam Per Admitting Provider GENERAL: Obese, uncomfortable, pleasant, no respiratory distress SKIN: Normal color, warm HEENT: Bespectacled, pink palpebral conjunctivae, no ptosis, dry buccal mucosa NECK : Supple, no tenderness CHEST : CTA, no tenderness HEART : RRR, no obvious murmurs ABDOMEN: Some distention, nontender EXTREMITIES : LLE splint noted, no LE swelling/tenderness, palpable pulses, no other conspicuous deformities noted NEUROLOGIC : Coherent, no facial asymmetry, no other gross focality Principal Diagnosis Traumatic left heel fracture Discharge Exam GENERAL: Obese, NAD, pleasant, no respiratory distress SKIN: Normal color, warm HEENT: Bespectacled, pink palpebral conjunctivae, blind both eyes, no ptosis, moist buccal mucosa NECK : Supple, no tenderness CHEST : CTA, no tenderness HEART : RRR, no obvious murmurs ABDOMEN: No distention, nontender EXTREMITIES : LLE splint/dressing noted, no LE swelling/tenderness, palpable pulses, no other conspicuous deformities noted NEUROLOGIC : Coherent, no facial asymmetry, no other gross focality Discharge Data Allergies Allergy/AdvReac Type Severity Reaction Status Date / Time mycophenolate mofetil Allergy Severe KIDNEY Verified 10/08/24 23:19 [From CellCept] FAILED cephalexin Allergy Mild RASH Verified 10/08/24 23:19 Penicillins Allergy Mild RASH Verified 10/08/24 23:19 Consultations 10/08/24 23:57 ED Decision to Admit Stat 10/09/24 00:40 Consult Orthopedic Surgery Routine Ordered Studies 10/08/24 23:23 CT ankle LT wo con Stat Hospital Course (1) Closed fracture of left calcaneus: 63 yo M w/ PMH of CAD, valvular heart disease (mild MR/AR), PAF, hypertension, hyperlipidemia, JANET on CPAP, DM1, 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 He denied head trauma/LOC/SOB/Chest pain. He was managed for the following: Traumatic left heel fracture Fall and left foot injury, see above. Orthopedics on board, plan for conservative management. Continue with pain medicine/bowel regimen. Follow-up with orthopedics in 2 weeks time for splint removal and casting. NWB LLE and ortho ok w/ dc per my d/w w/ them. PT/OT eval, recs is home. Other chronic medical conditions: Continue with/resume home meds as and when able. 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 heparin as no plan for procedure. Full code Patient is being discharged home w/ 24 hr supervision with following instructions at the point of discharge: Patient Ms. Yvonne Jewell, contact #[phone]. Follow-up with your primary care physician within a week time and likely you will need labs CBC/CMP/magnesium/phosphorus. Your evaluated for your left heel fracture, orthopedics evaluated you, you chose to go with conservative management, continue to maintain nonweightbearing on your left lower extremity, follow-up with orthopedics in 1 week time upon discharge. Continue with pain management and bowel regimen as needed. Take your medications as prescribed. Please make sure that you are able to get your medications today by calling your pharmacy before you leave the hospital so that your treatment continuity is not broken. Text document was generated using [employer] voice recognition software. It may contain grammatical or spelling errors. Kindly contact undersigned for clarification of any documentation item in question. Home Health Attestation I certify that this patient is under my care and that I, or a physicians ob gyn physician assistant working with me, had a face to-face encounter that meets the home health [id number] encounter requirements with this patient. The encounter with the patient was in whole, or in part, for the following medical condition, which is the primary reason for home health care (list medical condition): I certify that, based on my findings, the following services are medically necessary home health services: My clinical findings support the need for the above services because: Further, I certify that my clinical findings support that this patient is homebound (i.e. absences from home require considerable and taxing effort and are for medical reasons or yarsani services or infrequently or of short duration when for other reasons) because: Certification for Home Health Services: Based on the above findings, I certify that this patient is confined to the home and needs intermittent retirement care, physical therapy and/or speech therapy or continues to need occupational therapy. The patient is under my care, and I have initiated the establishment of the plan of care. This patient will be followed by a physician who will periodically review the plan of care. Total Time Total Time Spent Total Time Spent (In Minutes): 35 Discharge Plan Discharge Items Patient Disposition: Home - Self-Care Reason For Visit: L HEEL Fx Discharge Diagnosis: Traumatic left heel fracture Condition on Discharge: Good Activity: As commented below Activity Comment: NWB x Left lower extremity. Non-emergency contact: Primary Care Provider Call non-emergency contact if: you have any medication questions and your symptoms worsen Follow-up/Referrals: Odalys Shook MD [Primary Care Provider] - Diet: Carb Consistent or DM2 and Heart Healthy Addtl Attending Provider Instructions: Follow-up with your primary care physician within a week time and likely you will need labs CBC/CMP/magnesium/phosphorus. Your evaluated for your left heel fracture, orthopedics evaluated you, you chose to go with conservative management, continue to maintain nonweightbearing on your left lower extremity, follow-up with orthopedics in 1 week time upon discharge. Continue with pain management and bowel regimen as needed. Take your medications as prescribed. Please make sure that you are able to get your medications today by calling your pharmacy before you leave the hospital so that your treatment continuity is not broken. Pending Studies at Discharge: No Stand-Alone Forms: My [facility], Smoking Cessation Medications and DC Order Prescriptions: New acetaminophen 325 mg Tablet 650 mg PO QID PRN (Reason: pain) Qty: 30 0RF oxycodone 5 mg Tablet 5 mg PO QID PRN (Reason: severe pain) Qty: 20 0RF docusate sodium 100 mg Capsule 100 mg PO BID PRN (Reason: constipation) Qty: 20 0RF Continued Tresiba FlexTouch U-100 100 unit/mL (3 mL) insulin pen 8 unit subcut HS tamsulosin 0.4 mg capsule 0.4 mg PO QAM Qty: 90 3RF sertraline 100 mg tablet 150 mg PO QAM furosemide 20 mg tablet 20 mg PO QAM mycophenolate sodium [Myfortic] 360 mg Tablet,Delayed Release (Dr/Ec) 360 mg PO TID prednisone 5 mg tablet 5 mg PO QAM cyanocobalamin (vitamin B-12) [Vitamin B-12] 1,000 mcg Tablet 1,000 mcg PO QAM aspirin 81 mg Tablet,Delayed Release (Dr/Ec) 81 mg PO QAM tacrolimus [Prograf] 0.5 mg Capsule 0.5 mg PO DIRECTED Rx Instructions: TAKES 0.5 MG WEDNESDAY AM, WEDNESDAY PM ONLY, WEDNESDAY, WEDNESDAY, WEDNESDAY, WEDNESDAY PM ONLY, AND WEDNESDAY atorvastatin 20 mg tablet 20 mg PO QAM metformin 500 mg tablet extended release 24 hr 500 mg PO DIRECTED Rx Instructions: TAKES 1,000 MG QAM, THEN 500 MG QPM. tacrolimus [Prograf] 1 mg Capsule 1 mg PO 2XWK Rx Instructions: WEDNESDAY & FRIDAYS ONLY insulin aspart U-100 100 unit/mL (3 mL) insulin pen 0 sliding scale dose SUBCUT DIRECTED Rx Instructions: 1 UNIT FOR EVERY 10 CARBS cholecalciferol (vitamin D3) [Vitamin D3] 50 mcg (2,000 unit) Capsule 50 mcg PO BID Discharge Orders: Discharge Order (Routine); Ordered 10/10/24 Ordered By: Ashok Cao Admission Data Admit Date/Time: 10/08/24 23:58 Attending Provider: Ashok Cao Admit Provider: Nawaf Landin Primary Care Provider: Odalys Shook Other Providers: Vito Collazo; Nawaf Landin
[2024-10-15] MEDS ORDERED: TACROLIMUS 0.5 MG CAP PO SCH (09:00)
== END 2024-10-10 14:35 | disposition home or self-care (01) ==
LOC: 3W 22:19 → ED 22:19 → SUATTDRO 23:58 → 3W 10-09 00:49

== ENCOUNTER 2025-01-21 06:51 | Inpatient (IN) ==
[2025-01-21] MEDS: PLASMA-LYTE A 1,000 ML IV ONE (07:06)
[2025-01-21] MEDS: ONDANSETRON INJ 2 MG/ML 2 ML VIAL IV STA (07:06)
--- NOTE | 2025-01-21 07:16 | Emergency Department Note ---
Impression & Plan Nausea & vomiting, Hypomagnesemia, Elevated lactic acid level, Acute dehydration, Gastroenteritis ED Provider Note NAME: PAULA HARVEY AGE: 64 SEX: M : 1960 ARRIVES VIA: Ambulance INFORMANT: Patient, EMS, ED PROVIDER(S): Marquez Davila DO CHIEF COMPLAINT: N/V and abd pain HPI: This is a 64-year-old male with the PMHx of blindness, ESRD s/p renal transplant (approximately 10 years ago), pancreas transplant, IDDM1, BPH, pAfib and nocturnal hypoxemia presenting to [facility] for further evaluation of sudden onset abdominal pain, nausea and vomiting. Patient is accompanied by EMS who provide additional history. EMS states they were not able to give significant history from the patient. No medications given and route. He has been intermittently tachycardic but otherwise hemodynamically stable. reports that this started suddenly this morning. Patient is reporting severe abdominal pain as well as nausea and vomiting. Patient states he has not had this happen in the past besides for a foodborne illness. No recent travel or abnormal dietary changes. Patient states that he was previously on dialysis but this has been a number of years. He does report immunosuppression therapy with tacrolimus. They deny fever or chills. No cough or congestion. Denies chest pain or palpitations. No shortness of breath. No urinary complaints. No recent changes in bowel movements. Patient denies recent changes in medications or OTC supplements. Patient offers no other complaints, today. ADDITIONAL HISTORY OBTAINED: Per HPI Chronic Medical/Social Conditions Affecting Care: Per HPI PAST MEDICAL HISTORY: See Below PAST SURGICAL HISTORY: See Below FAMILY HISTORY: See Below SOCIAL HISTORY: See Below HOME MEDICATIONS: See Below ALLERGIES: See Below VITALS: See Below PHYSICAL EXAMINATION: GENERAL: Sitting up in bed, alert, well appearing, well nourished, no distress, non-toxic EYE EXAM: normal conjunctiva. PERRL and EOM's grossly intact. OROPHARYNX: no exudate, no erythema, lips, buccal mucosa, and tongue normal and mucous membranes are dry NECK: supple, no nuchal rigidity, no adenopathy, non-tender LUNGS: Tachypnea. Clear to auscultation. Normal chest wall mechanics HEART: no murmurs, regular rate, regular rhythm ABDOMEN: The abdomen is soft but generalized tenderness to palpation with rebound. Numerous abdominal scars present. BACK: Back is symmetrical on inspection and there is no deformity, no midline tenderness, no CVA tenderness. SKIN: no rashes and no bruising UPPER EXTREMITIES: upper extremities are grossly normal. LOWER EXTREMITIES: No pitting edema. NEURO EXAM: Normal sensorium, GCS 15, normal speech, no gross weakness of arms, no gross weakness of legs. MEDICAL DECISION MAKING: Differential diagnoses includes but not limited to gastroenteritis, viral illness, pneumonia, DKA, HHS, electrolyte derangements, dehydration, sepsis, bacteremia, complicated UTI, small bowel obstruction, ischemic colitis, gastrointestinal perforation, appendicitis, acute hepatobiliary pathology, pancreatitis In summary, this is a 64 year old male who presented with N/V and abdominal pain. Differential as above. Nursing notes and pertinent past medical records reviewed. Vital signs reviewed and the patient is hypertensive but otherwise afebrile and hemodynamically stable. History and presentation revealed complex past medical history including immunosuppression from prior kidney transplant. He is currently on Tacrolimus. This raises concerns for possible infectious pathology. Given extensive intraabdominal surgeries, I would also be concerned for possible bowel obstruction. Physical examination revealed as above. As a result of my initial evaluation, patient has sudden onset abdominal pain, nausea and vomiting. Extensive abdominal surgical history. Could be a small bowel obstruction. Given his immunosuppression, will obtain sepsis workup. Patient's has a heart rate in the 90s but otherwise no SIRS criteria at this time. No fevers. Will hold on antibiotics. Diagnostics interpreted by me include EKG and cardiac monitoring as listed below: -Cardiac Monitoring: An order was placed for continuous cardiac monitoring. The monitor shows a rate of 60-90s with regular rhythm. -ECG: EKG shows a very poor baseline but appears to be normal sinus rhythm at a ventricular rate of [address] segment changes to suggest STEMI. Intervals appear to be within normal limits. Patient has numerous areas of artifact on this ECG. Patient completed laboratory studies and imaging. I-STAT chemistries were obtained on arrival and independently interpreted by me as no significant electrolyte derangements. Does have mild hyperglycemia with an anion gap. Plan to investigate further for HHS and DKA on regulatory labs. Results independently interpreted by me are minimal leukocytosis. Evidence of hyperventilation with respiratory alkalosis. The patient was managed with Zofran and IV fluid resuscitation, initially. Patient continued to have significant retching and vomiting while in the emergency department. Patient's vitals remained stable. IV droperidol and pain control medications ordered for the patient. CXR independently interpreted by me reveals no evidence of focal consolidation to suggest pna. No large pneumothorax or pleural effusion. I independently reviewed the patient's CT abdomen/pelvis which showed significant stool burden and some dilated colon as well as small bowel. There is potential for a bowel obstruction but he does appear to have normal gas pattern and stool through the rectum. Noted to have some urinary retention on CT. He has been able to void following CT scan. Pending formal radiology reads. CMP shows mild hyperglycemia with an anion gap. No acidosis present. Lactate was significantly elevated at 4.1. Mild hypomagnesemia at 1.3 and IV replenishment ordered. LFTs are largely unremarkable. Troponin is normal. On reevaluation, he has improvement in his symptoms from IV Fentanyl and Droperidol. I do feel the patient's symptoms are likely consistent with an abrupt onset of nausea, vomiting and abdominal pain. Could be a viral illness consistent with gastroenteritis. I did discuss the possibility of ischemic colitis but felt to be less likely. Patient's lactate cleared with IV fluid resuscitation. Given his immunosuppression and kidney transplant, I feel the patient should be closely monitored in the hospital. Could have early small bowel obstruction developing. Given the patient's rigors on evaluation, he is pending blood cultures. His procalcitonin and leukocytosis are minimal. I do not believe the patient is a [facility] infectious pathology at this time. If the patient should develop worsening or a fever, he may benefit from broad-spectrum antibiotics. Will need to continue IV fluid resuscitation and antiemetics as an inpatient. Ultimately, the decision was made to admit the patient for nausea and vomiting in the setting of possible gastroenteritis or colitis. Could be a developing small bowel obstruction. He has multiple electrolyte derangements including elevated lactate and hypomagnesemia. I discussed the case with the hospitalist service via telephone/Tiger[employer] and they are agreeable to admit the patient to their services by Dr. Minaya. Based on the above, including the patient's age, coexisting illnesses, labs, imaging, and exam findings the decision to treat as an inpatient. I discussed the patient with the hospitalist team who recommended admission to their services. They received the medications, treatments, interventions indicated above and their condition remained guarded. I discussed my findings with the patient and their family and they understand and agree with the treatment plan. All patient / family questions were answered to their satisfaction. Consults/Care Managements Discussions: Per MDM ER treatment provided: See above Procedures:none Critical Care: None The chart was completed utilizing [employer] Speech voice recognition software. Grammatical errors, random word insertions, pronoun errors, and incomplete sentences are an occasional consequence of this system due to software limitations, ambient noise, and hardware issues. Any formal questions or concerns about the content, text, or information contained within the body of this dictation should be directly addressed to the physician for clarification. Past Med/Surg History Problem List (Updated 01/21/25 @ 16:57 by Marquez Davila DO) Gastroenteritis (Acute) Acute dehydration (Acute) Elevated lactic acid level (Acute) Hypomagnesemia (Acute) Nausea & vomiting (Acute) Closed fracture of left calcaneus (Acute) Paroxysmal atrial flutter Small bowel obstruction (Acute) BPH loc w urin obs/LUTS Nocturnal hypoxemia Indigestion (Chronic) Vision loss (Chronic) Diabetes mellitus type 1 (Chronic) ESRD (end stage renal disease) on dialysis (Chronic) Acute bronchitis History of kidney transplant (Acute) History of pancreas transplant (Acute) Sepsis Medical History (Updated 01/21/25 @ 16:57 by Marquez Davila DO) Immunocompromised Hypertension History of hemodialysis Surgical History History of pancreas transplant History of kidney transplant History of hip replacement History of eye surgery History of cholecystectomy History of colonoscopy Family History Other Cancer Diabetes Heart disease Hypertension Seizure Social History Smoking Status: Never smoker Second Hand Exposure: No; Do You Dip or Chew Tobacco: No; Tobacco Cessation Education Requested by Patient: No Hx Alcohol Use: No Hx Substance Use: No Preferred Language: Egyptian Communication Ability: Effective Communication Ability Comment: legally blind Examination Proctor Required: No Beliefs That Will Affect Care: None marital status: Current Living Situation: Spouse Current Living Situation Comment: one story current occupational status: disabled Other Information That Helps Us Care for You: No Feels Safe at Home: Yes Safety Concerns: Feels Safe At This Time Assistive Devices: Glasses and Walker Allergies Allergies Allergy/AdvReac Type Severity Reaction Status Date / Time mycophenolate mofetil Allergy Severe KIDNEY Verified 10/08/24 23:19 [From CellCept] FAILED cephalexin Allergy Mild RASH Verified 10/08/24 23:19 Penicillins Allergy Mild RASH Verified 10/08/24 23:19 Home Meds Home Medications Medication Instructions Recorded Confirmed furosemide 20 mg tablet 20 mg PO QAM 01/16/18 01/21/25 mycophenolate sodium 360 mg 360 mg PO TID 01/16/18 01/21/25 tablet,delayed release (Myfortic) sertraline 100 mg tablet 150 mg PO QAM 01/16/18 01/21/25 aspirin 81 mg tablet,delayed 81 mg PO QAM 07/19/20 01/21/25 release cyanocobalamin (vitamin B-12) 1,000 mcg PO QAM 07/19/20 01/21/25 1,000 mcg tablet (Vitamin B-12) prednisone 5 mg tablet 5 mg PO QAM 07/19/20 01/21/25 tacrolimus 0.5 mg capsule, 0.5 mg PO DIRECTED 07/19/20 01/21/25 immediate-release (Prograf) insulin degludec 100 unit/mL (3 8 unit subcut HS 01/07/22 01/21/25 mL) subcutaneous pen (Tresiba FlexTouch U-100 insulin) atorvastatin 20 mg tablet 20 mg PO QAM 11/05/23 01/21/25 metformin 500 mg tablet,extended 500 mg PO DIRECTED 11/05/23 01/21/25 release 24 hr cholecalciferol (vitamin D3) 50 50 mcg PO BID 10/08/24 01/21/25 mcg (2,000 unit) capsule (Vitamin D3) insulin aspart U-100 100 unit/mL 0 sliding scale dose subcut 10/08/24 01/21/25 (3 mL) subcutaneous pen DIRECTED tacrolimus 1 mg capsule, 1 mg PO 2XWK 10/08/24 01/21/25 immediate-release (Prograf) Previous Rx's Medication Instructions Recorded tamsulosin 0.4 mg capsule 0.4 mg PO QAM #90 caps 02/28/24 acetaminophen 325 mg tablet 650 mg (2 x 325 mg) PO QID PRN 10/10/24 pain #30 tabs Results & Data (ED) Vital Signs Vital Signs - 24 hr 01/21/25 06:56 01/21/25 07:07 01/21/25 07:26 Temperature 36.6 C Temperature Source Oral Pulse Rate 82 92 H Pulse Rate [Apical] Respiratory Rate 18 Respiratory Effort / Characteristics Non-Labored Spontaneous Respiratory Depth Normal Respiratory Pattern Regular Blood Pressure 175/123 H Blood Pressure [Right Arm] Blood Pressure Mean 140 Blood Pressure Mean [Right Arm] Blood Pressure Position [Right Arm] Pulse Oximetry 100 100 Oxygen Delivery Method Room Air Room Air Sepsis Recent Fever Within 48 Hours No Sepsis New/Unexplained Change in Mental Status N/A Sepsis Action Taken by Nursing No Action Required 01/21/25 08:26 Temperature Temperature Source Pulse Rate Pulse Rate [Apical] 91 H Respiratory Rate 18 Respiratory Effort / Characteristics Non-Labored Spontaneous Respiratory Depth Normal Respiratory Pattern Regular Blood Pressure Blood Pressure [Right Arm] 167/90 H Blood Pressure Mean Blood Pressure Mean [Right Arm] 115 Blood Pressure Position [Right Arm] Sitting Pulse Oximetry 100 Oxygen Delivery Method Room Air Sepsis Recent Fever Within 48 Hours Sepsis New/Unexplained Change in Mental Status Sepsis Action Taken by Nursing Laboratory Data 01/21/25 07:05 01/21/25 07:05 Lab Results 01/21/25 01/21/25 01/21/25 Range/Units 06:57 07:05 07:08 WBC 11.06 H (4.8-10.8) K/ul RBC 4.92 (4.70-6.10) M/uL Hgb 14.8 (14.0-18.0) g/dl POC Hgb (14.0-18.0) g/dl Hct 45.5 (42.0-52.0) % POC Hct (42-52) % MCV 92.5 (80.0-100.0) fL MCH 30.1 (25.0-34.0) pg MCHC 32.5 (32.0-36.0) g/dL RDW Std Deviation 46.5 H (36.4-46.3) fL RDW Coeff of Samra 13.7 (11.5-14.5) % Plt Count 205 (130-400) K/uL MPV 10.6 (9.4-12.4) fL Immature Gran % (Auto) 0.4 % Neut % (Auto) 83.5 % Lymph % (Auto) 6.8 % Spencer % (Auto) 8.9 % Eos % (Auto) 0.2 % Baso % (Auto) 0.2 % Neut # (Auto) 9.25 H (1.40-6.50) K/uL Lymph # (Auto) 0.75 L (1.20-3.40) K/uL Spencer # (Auto) 0.98 H (0.11-0.59) K/uL Eos # (Auto) 0.02 (0.00-0.50) K/uL Baso # (Auto) 0.02 (0.00-0.20) K/uL Immature Gran # (Auto) 0.04 (0.01-0.20) K/uL PT 11.8 (9.0-12.0) Seconds INR 1.1 (0.9-1.1) VBG pH 7.49 H (7.36-7.41) VBG pCO2 32 L (38-50) mmHg VBG pO2 21 mmHg VBG HCO3 24 mmol/L VBG O2 Saturation < 60.0 % VBG Base Excess 1.8 mEq/L POC Sodium (135-144) mmol/L Sodium 139 (136-145) mmol/L POC Potassium (3.3-5.0) mmol/L Potassium 3.7 (3.5-5.1) mmol/L POC Chloride (101-112) mmol/L Chloride 100 (98-107) mmol/L Carbon Dioxide 24 (21-32) mmol/L POC Total CO2 (24-31) mmol/L Anion Gap 15 H (3-11) POC Anion Gap (16-25) mmol/L POC BUN (7-18) mg/dl BUN 32 H (6-23) mg/dl Creatinine 1.03 (0.6-1.4) mg/dl POC Creatinine (0.6-1.3) mg/dl Est Cr Clr Drug Dosing 70.8 ml/min eGFR 81.12 BUN/Creatinine Ratio 31.1 H (10-20) Glucose 216 H (70-99(Fasting)) mg/dl POC Glucose 182 H (70-99) mg/dl POC Glucose (other) (70-99) mg/dl Lactate 4.1 H* (0.4-2.0) mmol/L Calcium 10.9 H (8.6-10.3) mg/dl POC Ioniz Calcium Sushila (1.12-1.32) mmol/l Magnesium 1.3 L (1.7-2.4) mg/dl Total Bilirubin 1.0 (0.2-1.0) mg/dl Direct Bilirubin 0.3 H (0-0.2) mg/dl AST 18 (13-39) U/L ALT 17 (7-52) U/L Alkaline Phosphatase 121 H (34-104) U/L Troponin I High Sens 12.2 (0-20) pg/ml Total Protein 8.6 H (6.0-8.3) gm/dl Albumin 4.5 (3.4-5.0) gm/dl Lipase 18 (11-82) U/L Procalcitonin 0.04 (0-0.5) ng/ml Adenovirus (PCR) Not Detected (NotDetected) B. pertussis DNA (PCR) Not Detected (NotDetected) B.parapertussis DNA PCR Not Detected (NotDetected) C. pneumoniae DNA (PCR) Not Detected (NotDetected) Coronavirus OC43 (PCR) Not Detected (NotDetected) Coronavirus HKU1 (PCR) Not Detected (NotDetected) Coronavirus 229E (PCR) Not Detected (NotDetected) SARS-CoV-2 (PCR) Not Detected (NotDetected) Coronavirus NL63 (PCR) Not Detected (NotDetected) Human Metapneumovir PCR Not Detected (NotDetected) Influenza Type A (PCR) Not Detected (NotDetected) Influenza Type B (PCR) Not Detected (NotDetected) M. pneumoniae (PCR) Not Detected (NotDetected) Parainfluenza 1 (PCR) Not Detected (NotDetected) Parainfluenza 2 (PCR) Not Detected (NotDetected) Parainfluenza 3 (PCR) Not Detected (NotDetected) Parainfluenza 4 (PCR) Not Detected (NotDetected) RSV (PCR) Not Detected (NotDetected) Entero/Rhino (PCR) Not Detected (NotDetected) 01/21/25 01/21/25 Range/Units 07:09 09:21 WBC (4.8-10.8) K/ul RBC (4.70-6.10) M/uL Hgb (14.0-18.0) g/dl POC Hgb 16.0 (14.0-18.0) g/dl Hct (42.0-52.0) % POC Hct 47 (42-52) % MCV (80.0-100.0) fL MCH (25.0-34.0) pg MCHC (32.0-36.0) g/dL RDW Std Deviation (36.4-46.3) fL RDW Coeff of Samra (11.5-14.5) % Plt Count (130-400) K/uL MPV (9.4-12.4) fL Immature Gran % (Auto) % Neut % (Auto) % Lymph % (Auto) % Spencer % (Auto) % Eos % (Auto) % Baso % (Auto) % Neut # (Auto) (1.40-6.50) K/uL Lymph # (Auto) (1.20-3.40) K/uL Spencer # (Auto) (0.11-0.59) K/uL Eos # (Auto) (0.00-0.50) K/uL Baso # (Auto) (0.00-0.20) K/uL Immature Gran # (Auto) (0.01-0.20) K/uL PT (9.0-12.0) Seconds INR (0.9-1.1) VBG pH (7.36-7.41) VBG pCO2 (38-50) mmHg VBG pO2 mmHg VBG HCO3 mmol/L VBG O2 Saturation % VBG Base Excess mEq/L POC Sodium 140 (135-144) mmol/L Sodium (136-145) mmol/L POC Potassium 3.8 (3.3-5.0) mmol/L Potassium (3.5-5.1) mmol/L POC Chloride 102 (101-112) mmol/L Chloride (98-107) mmol/L Carbon Dioxide (21-32) mmol/L POC Total CO2 23 L (24-31) mmol/L Anion Gap (3-11) POC Anion Gap 20.0 (16-25) mmol/L POC BUN 31 H (7-18) mg/dl BUN (6-23) mg/dl Creatinine (0.6-1.4) mg/dl POC Creatinine 1.1 (0.6-1.3) mg/dl Est Cr Clr Drug Dosing ml/min eGFR BUN/Creatinine Ratio (10-20) Glucose (70-99(Fasting)) mg/dl POC Glucose (70-99) mg/dl POC Glucose (other) 215 H (70-99) mg/dl Lactate 1.7 (0.4-2.0) mmol/L Calcium (8.6-10.3) mg/dl POC Ioniz Calcium Sushila 1.17 (1.12-1.32) mmol/l Magnesium (1.7-2.4) mg/dl Total Bilirubin (0.2-1.0) mg/dl Direct Bilirubin (0-0.2) mg/dl AST (13-39) U/L ALT (7-52) U/L Alkaline Phosphatase (34-104) U/L Troponin I High Sens (0-20) pg/ml Total Protein (6.0-8.3) gm/dl Albumin (3.4-5.0) gm/dl Lipase (11-82) U/L Procalcitonin (0-0.5) ng/ml Adenovirus (PCR) (NotDetected) B. pertussis DNA (PCR) (NotDetected) B.parapertussis DNA PCR (NotDetected) C. pneumoniae DNA (PCR) (NotDetected) Coronavirus OC43 (PCR) (NotDetected) Coronavirus HKU1 (PCR) (NotDetected) Coronavirus 229E (PCR) (NotDetected) SARS-CoV-2 (PCR) (NotDetected) Coronavirus NL63 (PCR) (NotDetected) Human Metapneumovir PCR (NotDetected) Influenza Type A (PCR) (NotDetected) Influenza Type B (PCR) (NotDetected) M. pneumoniae (PCR) (NotDetected) Parainfluenza 1 (PCR) (NotDetected) Parainfluenza 2 (PCR) (NotDetected) Parainfluenza 3 (PCR) (NotDetected) Parainfluenza 4 (PCR) (NotDetected) RSV (PCR) (NotDetected) Entero/Rhino (PCR) (NotDetected) Administered Medications Cyanocobalamin (Cyanocobalamin (B-12) 500 Mcg Tablet) 1,000 mcg PO QAM [facility] Stop: 02/20/25 11:44 Last Admin: 01/21/25 14:50 Dose: 1,000 mcg Documented By: HÉCTOR Enoxaparin Sodium (Enoxaparin Inj 40 Mg/0.4 Ml Syr) 40 mg SQ Q24H PENNY Stop: 02/20/25 11:44 Last Admin: 01/21/25 14:50 Dose: 40 mg Documented By: HÉCTOR Sodium Chloride (Nss) 1,000 mls @ 125 mls/hr IV .Q8H PENNY Stop: 01/24/25 08:59 Last Admin: 01/21/25 11:14 Dose: 125 mls/hr Documented By: TARYN Insulin Aspart (Insulin Aspart Per Unit Charge) 0 units SC Q6 PENNY Stop: 02/20/25 11:59 Last Admin: 01/21/25 12:07 Dose: 3 units Documented By: TARYN Co-signed By: MARIC Mycophenolate Sodium (Mycophenolate Sodium 180 Mg Tab) 360 mg PO TID [facility] Stop: 02/20/25 13:59 Last Admin: 01/21/25 14:51 Dose: 360 mg Documented By: HÉCTOR Prednisone (Pred[facility]one 5 Mg Tab) [facility] Stop: 02/20/25 11:44 Last Admin: 01/21/25 14:51 Dose: 5 mg Documented By: HÉCTOR Sertraline HCl (Sertraline Hcl 50 Mg Tablet) [facility] Stop: 02/20/25 11:44 Last Admin: 01/21/25 14:51 Dose: 150 mg Documented By: HÉCTOR Discontinued Medications Acetaminophen (Acetaminophen 1000 Mg/100 Ml Iv) Confirm Administered Dose 1,000 mg IV .STK-MED ONE Stop: 01/21/25 10:46 Last Admin: 01/21/25 10:51 Dose: 1,000 mg Documented By: TARYN Droperidol (Droperidol 5 Mg/2 Ml Vial) 1.25 mg IV ONE STA Stop: 01/21/25 07:35 Last Admin: 01/21/25 07:38 Dose: 1.25 mg Documented By: IRWIN Fentanyl Citrate (Fentanyl Citrate Pf 100 Mcg/2 Ml Vial) 50 mcg IV NOW ONE Stop: 01/21/25 07:35 Last Admin: 01/21/25 07:39 Dose: 50 mcg Documented By: IRWIN Parenteral Electrolytes (Plasma-Lyte A Ph 7.4) 1,000 mls @ 999 mls/hr IV .Q1H1M ONE Stop: 01/21/25 07:59 Last Infusion: 01/21/25 08:20 Dose: Infused Documented By: Admin: 01/21/25 07:06 Dose: 999 mls/hr Documented By: IRWIN Magnesium Sulfate/Dextrose (Magnesium Sulfate / D5w) 1 gm in 100 mls @ 100 mls/hr IV Q1H PENNY Stop: 01/21/25 10:00 Last Infusion: 01/21/25 10:51 Dose: Infused Documented By: Admin: 01/21/25 09:31 Dose: 100 mls/hr Documented By: Infusion: 01/21/25 09:17 Dose: Infused Documented By: Admin: 01/21/25 08:17 Dose: 100 mls/hr Documented By: IRWIN Acetaminophen (Ofirmev) 1,000 mg in 100 mls @ 400 mls/hr IV NOW STA Stop: 01/21/25 11:08 Last Admin: 01/21/25 11:10 Dose: Not Given Documented By: TARYN Vancomycin HCl 1,500 mg/ (Sodium Chloride) 530 mls @ 200 mls/hr IV NOW ONE Stop: 01/21/25 14:38 Last Infusion: 01/21/25 16:29 Dose: Infused Documented By: Admin: 01/21/25 13:22 Dose: 200 mls/hr Documented By: HÉCTOR Meropenem 500 mg/ Syringe 10 mls @ 2 mls/min IV ONE ONE; Protocol Stop: 01/21/25 11:19 Last Admin: 01/21/25 11:19 Dose: 2 mls/min Documented By: TARYN Ondansetron HCl (Ondansetron Inj 2 Mg/Ml 2 Ml Vial) 4 mg IV NOW STA Stop: 01/21/25 07:00 Last Admin: 01/21/25 07:06 Dose: 4 mg Documented By: IRWIN Imaging Data Radiologist's Impression: Chest X-Ray 01/21/25 06:59 EXAM: XR chest 1V portable CLINICAL HISTORY: Sepsis TECHNIQUE: An X-ray image of the chest was obtained in AP projection. COMPARISON: 11/06/2023 FINDINGS: Pulmonary Parenchyma: Bilateral prominent interstitial septa, with prominent bronchovascular markings, could be suggestive of parenchymal congestion. There is no evidence of consolidation, collapse, or focal opacities. No pulmonary nodules are identified. There is no evidence of pleural effusion or pleural thickening. Heart and Mediastinum: There is mild cardiomegaly, likely related to AP projection. There is no mediastinal widening or masses. No hilar or mediastinal lymphadenopathy. Bony Thorax: The bony thorax appears intact, without fractures or deformities. Soft Tissues: The soft tissues overlying the chest wall are unremarkable. The previously placed NG tube is not seen in the current study (removed). A left subclavian vein stent is present and stable. External ECG leads are present. IMPRESSION: 1. Bilateral prominent interstitial septa, with prominent bronchovascular markings, could be suggestive of parenchymal congestion. Unchanged. 2. There is no evidence of consolidation, collapse, or focal opacities. No pulmonary nodules are identified. Electronically signed by Luiz Asher 01-21-2025 09:07 AM Abdomen/Pelvis CT 01/21/25 07:06 EXAM: CT abd pelvis wo con CLINICAL HISTORY: Severe N/V and pain. h/o kidney and pancreas trauma TECHNIQUE: Non-contrast CT of the abdomen and pelvis was performed using the following protocol: axial images, as well as reconstructed coronal and sagittal images. One of the following dose reduction techniques was utilized for this examination: automated exposure control, adjustment of the mA and/or kV according to patient size, and use of iterative reconstruction. COMPARISON: 11/05/2023 FINDINGS: Abdomen: Liver: The liver is normal in size, shape, and density. No focal lesions, cysts, or masses are identified. Gallbladder and Biliary System: The gallbladder has been surgically removed. The common bile duct is prominent. No stones or masses are identified. Pancreas: There is atrophic pancreatic tissue. No masses are identified. Transplanted pancreatic tissue is noted in the right iliac fossa. No masses are identified. Spleen: The spleen is normal in size, shape, and density. No splenic lesions or masses are identified. Appendix: There is no evidence of appendiceal abscess or perforation. Kidneys and Adrenal Glands: There are atrophic changes of both kidneys with profuse vascular calcifications. No masses are identified. There is a transplanted kidney in the left iliac region. No masses or hydronephrosis are present. A minute stone measuring 4 mm is noted. Abdominal Aorta and Vessels: There is diffuse aortic and vascular calcific atherosclerosis. Pelvis: Urinary Bladder: The urinary bladder is normal in contour and wall thickness. No intraluminal lesions are identified. Prostate: The prostate is normal in size and contour. No masses or abnormal thickening are identified. Seminal Vesicles: The seminal vesicles have a normal appearance without abnormal enlargement or mass. Peritoneal and Retroperitoneal Structures: No free fluid or abnormal fluid collections are identified within the abdomen or pelvis. No lymphadenopathy is noted. Bowel: There is mild distension of small bowel loops. No wall thickening or masses are detected. Bones and Soft Tissues: The pelvic bones and soft tissues are unremarkable. No fractures or abnormal masses are identified. A right hip arthroplasty is noted. IMPRESSION: 1. No significant changes compared to the prior study dated 11/05/2023. 2. A small stone, 4 mm, in the transplanted kidney. Stable. 3. Mild distension of small bowel loops. No wall thickening or masses are detected. Clinical context is to be correlated, and further follow-up is advised. 4. No other significant changes or acute abnormalities detected. Electronically signed by Luiz Asher 01-21-2025 08:30 AM Discharge Plan Visit Data Chief Complaint: GI Assessment Stated Complaint: Abd pain ED Provider: Marquez Davila Discharge Problem: Nausea & vomiting, Hypomagnesemia, Elevated lactic acid level, Acute dehydration, Gastroenteritis Patient Disposition: Admitted As Inpatient Condition: Serious Discharge Instructions Interventions: ED Discharge Assessment Last Done: 01/21/25 11:14
[2025-01-21 07:17] LABS: Hematocrit (blood only) 45.5 % (42.0-52.0); Hemoglobin 14.8 g/dl (14.0-18.0); Immature Granulocytes # (auto) 0.04 K/uL (0.01-0.20); Immature Granulocytes % (auto) 0.4 %; Mean Corpuscular Hemoglobin 30.1 pg (25.0-34.0); Mean Corpuscular Volume 92.5 fL (80.0-100.0); Platelet Count 205 K/uL (130-400); RDW Standard Deviation 46.5 fL (36.4-46.3); Red Blood Count 4.92 M/uL (4.70-6.10); White Blood Count 11.06 K/ul (4.8-10.8)
[2025-01-21 07:18] LABS: Base Excess VBG 1.8 mEq/L; HCO3 VBG 24 mmol/L; Oxygen Saturation VBG < 60.0 %; PCO2 VBG 32 mmHg (38-50); PO2 VBG 21 mmHg; pH VBG 7.49 (7.36-7.41)
[2025-01-21] MEDS: DROPERIDOL 5 MG/2 ML VIAL IV STA (07:38)
[2025-01-21 07:43] LABS: Alanine Aminotransferase 17.0 U/L (7-52); Albumin Level 4.5 gm/dl (3.4-5.0); Alkaline Phosphatase 121.0 U/L (34-104); Anion Gap 15.0 (3-11); Bilirubin,Total 1.0 mg/dl (0.2-1.0); Blood Urea Nitrogen 32.0 mg/dl (6-23); Calcium 10.9 mg/dl (8.6-10.3); Carbon Dioxide 24.0 mmol/L (21-32); Chloride 100.0 mmol/L (98-107); Creatinine Clr Calc Pharmacy 70.8 ml/min; Glucose 216.0 mg/dl (70-99(Fasting)); Magnesium 1.3 mg/dl (1.7-2.4); Potassium 3.7 mmol/L (3.5-5.1); Sodium 139.0 mmol/L (136-145); Total Protein 8.6 gm/dl (6.0-8.3)
[2025-01-21 07:54] LABS: INR 1.1 (0.9-1.1); Prothrombin Time 11.8 Seconds (9.0-12.0)
[2025-01-21 08:10] LABS: Chlamydia pneumoniae PCR Not Detected (NotDetected); Coronavirus 229E PCR Not Detected (NotDetected); Coronavirus CoV-2 (COVID19)PCR Not Detected (NotDetected); Coronavirus HKU1 PCR Not Detected (NotDetected); Coronavirus NL63 PCR Not Detected (NotDetected); Coronavirus OC43PCR Not Detected (NotDetected); Human Metapneumovirus PCR Not Detected (NotDetected); Parainfluenza Virus 1 PCR Not Detected (NotDetected); Parainfluenza Virus 2 PCR Not Detected (NotDetected); Parainfluenza Virus 3 PCR Not Detected (NotDetected); Parainfluenza Virus 4 PCR Not Detected (NotDetected); Respiratory Syncytial VirusPCR Not Detected (NotDetected); Rhinovirus/Enterovirus PCR Not Detected (NotDetected)
[2025-01-21] MEDS: MAGNESIUM SULFATE / D5W 1 GM/100 ML BAG IV SCH (08:17)
[2025-01-21 08:21] LABS: Appearance Urine Clear (Clear); Bacteria Urine Automated None Seen (None Seen); Cast Urine Automated 0-2 /lpf (0-2); Epithelial Cell Urine Auto 0-2 /hpf (0-2); Glucose Urine UA Trace (Negative); RBC Urine Automated 0-2 /hpf (0-2); WBC Urine Automated 0-5 /hpf (0-5)
--- NOTE | 2025-01-21 08:31 | CT Scan Report ---
EXAM: CT abd pelvis wo con CLINICAL HISTORY: Severe N/V and pain. h/o kidney and pancreas trauma TECHNIQUE: Non-contrast CT of the abdomen and pelvis was performed using the following protocol: axial images, as well as reconstructed coronal and sagittal images. One of the following dose reduction techniques was utilized for this examination: automated exposure control, adjustment of the mA and/or kV according to patient size, and use of iterative reconstruction. COMPARISON: 11/05/2023 FINDINGS: Abdomen: Liver: The liver is normal in size, shape, and density. No focal lesions, cysts, or masses are identified. Gallbladder and Biliary System: The gallbladder has been surgically removed. The common bile duct is prominent. No stones or masses are identified. Pancreas: There is atrophic pancreatic tissue. No masses are identified. Transplanted pancreatic tissue is noted in the right iliac fossa. No masses are identified. Spleen: The spleen is normal in size, shape, and density. No splenic lesions or masses are identified. Appendix: There is no evidence of appendiceal abscess or perforation. Kidneys and Adrenal Glands: There are atrophic changes of both kidneys with profuse vascular calcifications. No masses are identified. There is a transplanted kidney in the left iliac region. No masses or hydronephrosis are present. A minute stone measuring 4 mm is noted. Abdominal Aorta and Vessels: There is diffuse aortic and vascular calcific atherosclerosis. Pelvis: Urinary Bladder: The urinary bladder is normal in contour and wall thickness. No intraluminal lesions are identified. Prostate: The prostate is normal in size and contour. No masses or abnormal thickening are identified. Seminal Vesicles: The seminal vesicles have a normal appearance without abnormal enlargement or mass. Peritoneal and Retroperitoneal Structures: No free fluid or abnormal fluid collections are identified within the abdomen or pelvis. No lymphadenopathy is noted. Bowel: There is mild distension of small bowel loops. No wall thickening or masses are detected. Bones and Soft Tissues: The pelvic bones and soft tissues are unremarkable. No fractures or abnormal masses are identified. A right hip arthroplasty is noted. IMPRESSION: 1. No significant changes compared to the prior study dated 11/05/2023. 2. A small stone, 4 mm, in the transplanted kidney. Stable. 3. Mild distension of small bowel loops. No wall thickening or masses are detected. Clinical context is to be correlated, and further follow-up is advised. 4. No other significant changes or acute abnormalities detected. Electronically signed by Luiz Asher 01-21-2025 08:30 AM
--- NOTE | 2025-01-21 09:08 | XRay Report ---
EXAM: XR chest 1V portable CLINICAL HISTORY: Sepsis TECHNIQUE: An X-ray image of the chest was obtained in AP projection. COMPARISON: 11/06/2023 FINDINGS: Pulmonary Parenchyma: Bilateral prominent interstitial septa, with prominent bronchovascular markings, could be suggestive of parenchymal congestion. There is no evidence of consolidation, collapse, or focal opacities. No pulmonary nodules are identified. There is no evidence of pleural effusion or pleural thickening. Heart and Mediastinum: There is mild cardiomegaly, likely related to AP projection. There is no mediastinal widening or masses. No hilar or mediastinal lymphadenopathy. Bony Thorax: The bony thorax appears intact, without fractures or deformities. Soft Tissues: The soft tissues overlying the chest wall are unremarkable. The previously placed NG tube is not seen in the current study (removed). A left subclavian vein stent is present and stable. External ECG leads are present. IMPRESSION: 1. Bilateral prominent interstitial septa, with prominent bronchovascular markings, could be suggestive of parenchymal congestion. Unchanged. 2. There is no evidence of consolidation, collapse, or focal opacities. No pulmonary nodules are identified. Electronically signed by Luiz Asher 01-21-2025 09:07 AM
--- NOTE | 2025-01-21 09:15 | Electrocardiogram Report ---
Test Reason : Blood Pressure : */* mmHG Vent. Rate : 87 BPM Atrial Rate : 87 BPM P-R Int : 130 ms QRS Dur : 76 ms QT Int : 398 ms P-R-T Axes : 47 34 61 degrees QTcB Int : 478 ms Normal sinus rhythm Normal ECG When compared with ECG of 10-Nov-2023 06:09, Vent. rate has increased by 31 bpm Confirmed by Silvino Cook ([id number]) on 01/21/2025 9:15:16 AM Referred By: REFERRED SELF Confirmed By: Silvino Cook
[2025-01-21] MEDS ORDERED: GLUCOSE 40% GEL 15 GM TUBE PO PRN (09:23)
[2025-01-21] MEDS ORDERED: DEXTROSE 50% 50 ML SYRINGE IV PRN (09:23)
[2025-01-21] MEDS ORDERED: GLUCAGON FOR INJ 1 MG VIAL SQ PRN (09:23)
[2025-01-21] MEDS ORDERED: CARBOHYDRATES FOR HYPOGLYCEMIA PO PRN (09:23)
[2025-01-21] MEDS ORDERED: GLUCOSE 10 TAB/TUBE PO PRN (09:23)
--- NOTE | 2025-01-21 09:27 | History & Physical Report ---
Date of Service January 21, 2025 Assessment & Plan (1) Small bowel obstruction: (2) Diabetes mellitus type 1: (3) History of kidney transplant: (4) History of pancreas transplant: Plan Mr. 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 Patient with history of SBO in 2023. Suspect early SBO given CT imaging. #Small bowl dilation c/f possible SBO #Abdominal pain #NV lactate 4.1 on admission, sudden onset abdominal pain likely early SBO iso adhesions Small bowel dilatation on CT this am N/V improved s/p 1 L IVF lactate downtrended start IVF @125 cc /hr NPO except sips/chips, meds zofran prn continue conservative mgmt for now Consider surgery if not improving #Leukocytosis #immunocompromised UA negative, CXR unrevealing, no infectious symptoms suspect possibly iso acute illness and hemoconcentration blood cultures pending, low threshold for empiric coverage if febrile or worsening #Type 1 diabetes #Failed pancreas transplant on home trulicity 8 U qhs and sliding scale will do basal bolus consider glycemic if uncontrolled #S/p kidney transplant renal function stable at baseline prograf level pending reports followed with transplant provider in last few months, regimen has been stable Continue transplant medications #Hypertension hold home lasix for now, resume in next 24-48 hours labetolol prn for bp >180 consider addition of coreg #Hyperlipidemia On statin #BPH On Flomax #Prior CVA Mild CAD On aspirin, and statin #Depression On Zoloft #legal blindness seeing precautions per nursing #Anemia of chronic kidney disease Currently hemoglobin 14, likely concentrated, anticipated possible decrease #history of PAF 2023, iso SBO monitor on tele DVT prophylaxis lovenox subcu admit to [facility] tele Full code. Admission and Anticipated Discharge Date Admission Date: Time spent evaluating patient, direct bedside care, chart review, placing orders, interpretation of diagnostic studies, discussion with consultants, patient, and family members, as well as other required patient management activities is 75 minutes. History of Present Illness Chief Complaint: abdominal pain Primary Care Provider: Odalys Shook MD Mr. 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 Patient with history of SBO in 2023. Patient reports abrupt nausea and vomiting this am with epigastric discomfort. Patient states he felt well and in normal state of health until early this am. He denies fevers, chills, diarrhea,constipation, or changes in routine diet. Patient reports abdominal pain is under better control s/p fluids and meds administered by ED. Patient states that his last BM was last evening, which was routine for him. He feels he was eating and drinking as per usual. present at bedside. In the ED, vitals were notable for BP of 160-170s, HR of 80-90s and O2 sat of 100 on RA Imaging revealed Mild distension of small bowel loops. No wall thickening or masses are detected. Clinical context is to be correlated, and further follow-up is advised. EKG withQTC at 478, NSR ED interventions: fentanyl, droperidol, zofran IVF Patient to be admitted to med/tele for further evaluation and management of abdominal pain Allergies Allergy/AdvReac Type Severity Reaction Status Date / Time mycophenolate mofetil Allergy Severe KIDNEY Verified 10/08/24 23:19 [From CellCept] FAILED cephalexin Allergy Mild RASH Verified 10/08/24 23:19 Penicillins Allergy Mild RASH Verified 10/08/24 23:19 Home Medications Medication Instructions Recorded Confirmed Type furosemide 20 mg tablet 20 mg PO QAM 01/16/18 01/21/25 History mycophenolate sodium 360 mg 360 mg PO TID 01/16/18 01/21/25 History tablet,delayed release (Myfortic) sertraline 100 mg tablet 150 mg PO QAM 01/16/18 01/21/25 History aspirin 81 mg tablet,delayed 81 mg PO QAM 07/19/20 01/21/25 History release cyanocobalamin (vitamin B-12) 1,000 mcg PO QAM 07/19/20 01/21/25 History 1,000 mcg tablet (Vitamin B-12) prednisone 5 mg tablet 5 mg PO QAM 07/19/20 01/21/25 History tacrolimus 0.5 mg capsule, 0.5 mg PO DIRECTED 07/19/20 01/21/25 History immediate-release (Prograf) insulin degludec 100 unit/mL (3 8 unit subcut HS 01/07/22 01/21/25 History mL) subcutaneous pen (Tresiba FlexTouch U-100 insulin) atorvastatin 20 mg tablet 20 mg PO QAM 11/05/23 01/21/25 History metformin 500 mg tablet,extended 500 mg PO DIRECTED 11/05/23 01/21/25 History release 24 hr tamsulosin 0.4 mg capsule 0.4 mg PO QAM #90 caps 02/28/24 01/21/25 Rx cholecalciferol (vitamin D3) 50 50 mcg PO BID 10/08/24 01/21/25 History mcg (2,000 unit) capsule (Vitamin D3) insulin aspart U-100 100 unit/mL 0 sliding scale dose subcut 10/08/24 01/21/25 History (3 mL) subcutaneous pen DIRECTED tacrolimus 1 mg capsule, 1 mg PO 2XWK 10/08/24 01/21/25 History immediate-release (Prograf) acetaminophen 325 mg tablet 650 mg (2 x 325 mg) PO QID PRN 10/10/24 01/21/25 Rx pain #30 tabs Past Med/Surg History Problem List (Updated 11/10/24 @ 00:07 by Background Melissa) Closed fracture of left calcaneus (Acute) Paroxysmal atrial flutter Small bowel obstruction (Acute) BPH loc w urin obs/LUTS Nocturnal hypoxemia Indigestion (Chronic) Vision loss (Chronic) Diabetes mellitus type 1 (Chronic) ESRD (end stage renal disease) on dialysis (Chronic) Acute bronchitis History of kidney transplant (Acute) History of pancreas transplant (Acute) Sepsis Medical History (Updated 11/10/24 @ 00:07 by Background Daemon) Immunocompromised Hypertension History of hemodialysis Surgical History History of pancreas transplant History of kidney transplant History of hip replacement History of eye surgery History of cholecystectomy History of colonoscopy Family History Other Cancer Diabetes Heart disease Hypertension Seizure Social History Smoking Status: Never smoker Hx Alcohol Use: Yes Alcohol type: beer Hx Substance Use: No Preferred Language: Yoruba Communication Ability: Effective Communication Ability Comment: legally blind Armature Connector Required: No Beliefs That Will Affect Care: Adventist Adventist Beliefs: Congregational marital status: Current Living Situation: Spouse Current Living Situation Comment: one story current occupational status: disabled Feels Safe at Home: Yes Assistive Devices: Cane and Walker Review of Systems Review of Systems: Constitutional: (-) fever/chills, (-) recent loss of weight, (-) appetite fernández es, (-) night sweats. Head: (-) headache, (-) dizziness. Eye: (-) blurring of vision, (-) double vision, (-) redness. Ear: (-) hearing loss, (-) discharge, (-) vertigo Nose: (-) discharge, (-) bleeding, (-) congestion, (-) post nasal drip. Throat: (-) sore throat, (-) hoarseness of voice, (-) odynophagia. Cardiovascular: (-) chest pain, (-) palpitations, (-) syncope, (-) orthopnea, (- ) PND, (-) leg swelling. Respiratory: (-) shortness of breath, (-) cough, (-) wheezing, (-) hemoptysis. Neuro: (-) weakness in extremities, (-) numbness, (-) tingling, (-) tremor. Gastrointestinal: (++) belly pain, (-) belly distension, (+) nausea, (+) vomiting, (-) diarrhea, (-) constipation, Genitourinary: (-) hematuria, (-) dysuria, (-) polyuria, (-) hesitancy, (-) frequency, (-) urinary incontinence. Musculoskeletal: (-) myalgia, (-) arthralgia. Skin: (-) rashes. Endocrine: (-) heat/cold intolerance. Psychiatry: (-) depression, (-) hallucination. Physical Exam Physical Exam: GENERAL APPEARANCE: AxOx3, uncomfortable appearing but no acute distress. HEENT: NC, AT. MMM. EOMI, clear conjunctiva, oropharynx clear. NECK: Supple without lymphadenopathy. No stiffness or restricted ROM. HEART: Normal rate and regular rhythm, GARCÍA + LUNGS: CTAB, moving air well. No crackles or wheezes are heard. ABDOMEN: multiple surgical incisions noted, protuberant, nontender, BS+ BACK: No CVAT, no obvious deformity. EXTREMITIES: Without cyanosis, clubbing or edema. NEUROLOGICAL: Grossly nonfocal. Alert and oriented, moving all 4 extremities. CN not formally tested but appear grossly intact. Skin: Warm and dry without any rash. Results & Data Results & Data Vital Signs (Past 12 Hours) Vital Signs Temp Pulse Pulse Resp BP BP Pulse Ox 01/21/25 08:26 91 H 18 167/90 H 100 01/21/25 07:26 92 H 01/21/25 07:07 100 01/21/25 06:56 36.6 C 82 18 175/123 H 100 O2 Del Method 01/21/25 08:26 Room Air 01/21/25 07:26 01/21/25 07:07 Room Air 01/21/25 06:56 Room Air Laboratory Results Short CBC 01/21/25 Range/Units 07:05 WBC 11.06 H (4.8-10.8) K/ul Hgb 14.8 (14.0-18.0) g/dl Hct 45.5 (42.0-52.0) % Plt Count 205 (130-400) K/uL BMP 01/21/25 07:05 Sodium 139 Potassium 3.7 Chloride 100 Carbon Dioxide 24 BUN 32 H Creatinine 1.03 Glucose 216 H Calcium 10.9 H Liver Function 01/21/25 Range/Units 07:05 Total Bilirubin 1.0 (0.2-1.0) mg/dl Direct Bilirubin 0.3 H (0-0.2) mg/dl AST 18 (13-39) U/L ALT 17 (7-52) U/L Alkaline Phosphatase 121 H (34-104) U/L Albumin 4.5 (3.4-5.0) gm/dl Urine 01/21/25 Range/Units Unknown Urine Color Yellow Urine Appearance Clear (Clear) Urine pH 6.0 (4.5-7.5) Ur Specific [place] 1.014 (1.000-1.030) Urine Protein 2+ H (Negative) Urine Glucose (UA) Trace H (Negative) Medications Administered Home Medications Medication Instructions Recorded Confirmed Last Taken furosemide 20 mg tablet 20 mg PO QAM 01/16/18 01/21/25 10/08/24 mycophenolate sodium 360 mg 360 mg PO TID 01/16/18 01/21/25 10/08/24 tablet,delayed release (Myfortic) sertraline 100 mg tablet 150 mg PO QAM 01/16/18 01/21/25 10/08/24 aspirin 81 mg tablet,delayed 81 mg PO QAM 07/19/20 01/21/25 10/08/24 release cyanocobalamin (vitamin B-12) 1,000 mcg PO QAM 07/19/20 01/21/25 10/08/24 1,000 mcg tablet (Vitamin B-12) prednisone 5 mg tablet 5 mg PO QAM 07/19/20 01/21/25 10/08/24 tacrolimus 0.5 mg capsule, 0.5 mg PO DIRECTED 07/19/20 01/21/25 10/08/24 immediate-release (Prograf) 0.5 MG insulin degludec 100 unit/mL (3 8 unit subcut HS 01/07/22 01/21/25 10/08/24 mL) subcutaneous pen (Tresiba FlexTouch U-100 insulin) atorvastatin 20 mg tablet 20 mg PO QAM 11/05/23 01/21/25 10/08/24 metformin 500 mg tablet,extended 500 mg PO DIRECTED 11/05/23 01/21/25 10/08/24 release 24 hr tamsulosin 0.4 mg capsule 0.4 mg PO QAM #90 caps 02/28/24 01/21/25 10/08/24 cholecalciferol (vitamin D3) 50 50 mcg PO BID 10/08/24 01/21/25 10/08/24 mcg (2,000 unit) capsule (Vitamin D3) insulin aspart U-100 100 unit/mL 0 sliding scale dose subcut 10/08/24 01/21/25 10/08/24 (3 mL) subcutaneous pen DIRECTED tacrolimus 1 mg capsule, 1 mg PO 2XWK 10/08/24 01/21/25 10/06/24 immediate-release (Prograf) acetaminophen 325 mg tablet 650 mg (2 x 325 mg) PO QID PRN 10/10/24 01/21/25 Unknown pain #30 tabs Code Status & VTE Plan VTE Prophylaxis Plan VTE Prophylaxis will be ordered: Yes
[2025-01-21 09:38] LABS: Lipase 18.0 U/L (11-82)
[2025-01-21] MEDS ORDERED: LABETALOL HCL IV 5 MG/ML 20ML IV PRN (10:11)
[2025-01-21] MEDS ORDERED: VANCOMYCIN CONSULT ACTIVE PRN (10:38)
[2025-01-21] MEDS ORDERED: CEFEPIME 2000MG 2,000 MG/20 ML SYR IV SCH (10:45)
[2025-01-21] MEDS: ACETAMINOPHEN 1000 MG/100 ML IV IV ONE (10:51)
[2025-01-21] MEDS: ACETAMINOPHEN 1,000 MG/100 ML VIAL IV STA (11:10)
[2025-01-21] MEDS ORDERED: ACETAMINOPHEN 325 MG TAB PO PRN (11:13)
[2025-01-21] MEDS ORDERED: ONDANSETRON INJ 2 MG/ML 2 ML VIAL IV PRN (11:13)
[2025-01-21] MEDS: SODIUM CHLORIDE 0.9% 1,000 ML IV SCH (11:14)
[2025-01-21] MEDS: MEROPENEM 500 MG in SYRINGE 0 ML IV ONE (11:19)
[2025-01-21] MEDS ORDERED: INSULIN ASPART PER UNIT CHARGE SC SCH (11:30)
[2025-01-21 11:50] LABS: Chlamydia pneumoniae PCR Not Detected (NotDetected); Coronavirus 229E PCR Not Detected (NotDetected); Coronavirus CoV-2 (COVID19)PCR Not Detected (NotDetected); Coronavirus HKU1 PCR Not Detected (NotDetected); Coronavirus NL63 PCR Not Detected (NotDetected); Coronavirus OC43PCR Not Detected (NotDetected); Human Metapneumovirus PCR Not Detected (NotDetected); Parainfluenza Virus 1 PCR Not Detected (NotDetected); Parainfluenza Virus 2 PCR Not Detected (NotDetected); Parainfluenza Virus 3 PCR Not Detected (NotDetected); Parainfluenza Virus 4 PCR Not Detected (NotDetected); Respiratory Syncytial VirusPCR Not Detected (NotDetected); Rhinovirus/Enterovirus PCR Not Detected (NotDetected)
[2025-01-21] MEDS: INSULIN ASPART PER UNIT CHARGE SC SCH (12:07)
[2025-01-21] MEDS: VANCOMYCIN HCL 1,500 MG in SODIUM CHLORIDE 0.9% 500 ML IV ONE (13:22)
--- NOTE | 2025-01-21 14:05 | Pharmacy Report ---
Pharmacy PK ABX Note - Date of Service January 21, 2025 - Assessment and Plan Assessment 64 year old M receiving vancomycin and meropenem empirically in the setting of fever- immunocompromised at baseline. Blood cultures pending. Renal function stable. Day # 1 of antimicrobial therapy. Plan Vancomycin * Loading dose: 1500 mg IV x 1 * Maintenance dose: 750 mg IV every 12 hours * Regimen is predicted to achieve target AUC/NAUN of 400-600 mg/L.hr * Will obtain a level if therapy continues beyond 48h, or sooner if clinically indicated Pharmacy will continue to follow and will adjust dose/frequency as necessary. Thank you. Pharmacy has transitioned to AUC monitoring for vancomycin. AUC/NAUN is the preferred PK/PD target and is associated with decreased risk of nephrotoxicity compared to traditional trough targets.
[2025-01-21] MEDS: CYANOCOBALAMIN (B-12) 500 MCG TABLET PO SCH (14:50)
[2025-01-21] MEDS: ENOXAPARIN INJ 40 MG/0.4 ML SYR SQ SCH (14:50)
[2025-01-21] MEDS: MYCOPHENOLATE SODIUM 180 MG TAB PO SCH (14:51)
[2025-01-21] MEDS: SERTRALINE HCL 50 MG TABLET PO SCH (14:51)
[2025-01-21] MEDS: MEROPENEM 500 MG in SYRINGE 0 ML IV SCH (17:53)
[2025-01-21] MEDS: LANTUS PER UNIT CHARGE SQ SCH (21:12)
[2025-01-21] MEDS: CHOLECALCIFEROL 25 MCG (1000 UNITS) TAB PO SCH (21:12)
[2025-01-21] MEDS: VANCOMYCIN 750 MG in SODIUM CHLORIDE 0.9% 250 ML IV SCH (21:26)
[2025-01-22] MEDS: METOPROLOL TARTRATE 1 MG/ML VIAL IV STA ×2 (00:06→09:34)
[2025-01-22 07:51] VITALS: TEMP 97.7; O2SAT 98
[2025-01-22] MEDS: TAMSULOSIN HCL 0.4 MG CAP PO SCH (09:31)
[2025-01-22] MEDS: ASPIRIN 81 MG ECTAB PO SCH (09:31)
[2025-01-22] MEDS: TACROLIMUS 1 MG CAP PO SCH (09:32)
[2025-01-22] MEDS: ATORVASTATIN 20 MG TAB PO SCH (09:32)
[2025-01-22] MEDS: FUROSEMIDE 20 MG TAB PO SCH (09:32)
--- NOTE | 2025-01-22 09:41 | Cardiology Consultation ---
Date of Consultation January 22, 2025 Assessment & Plan (1) Gastroenteritis: (2) Paroxysmal atrial fibrillation: (3) Hypomagnesemia: Plan Patient is a 64-year-old male admitted to [facility] with abdominal pain and possible small bowel obstruction versus gastroenteritis. Symptoms improved with conservative medical management. No surgical intervention required. During admission he was found to have recurrent paroxysmal atrial fibrillation overnight. Episodes were treated with IV metoprolol with improvement. He did develop mild asymptomatic sinus bradycardia with heart rates in the 40s. No pauses. Echo with preserved LVEF, normal left atrial size and no significant valvular disease. Recommendations: Patient with several episodes of PAF during acute illness and noted to have PAF on outpatient ZIO monitor. CHADSVASC score of 2. Recommend initiation of anticoagulation for stroke prophylaxis with Eliqius 5 mg BID. Patient agreeable. will not initiate AV saeed blocking therapies for now given mild resting sinus bradycardia. If he has recurrent afib RVR or sustained episodes with symptoms, may require future pacemaker implantation for borderline TBS. Will arrange cardio f/u in 1 month. Stable for discharge today from cardiac perspective. Case discussed with Dr. Doll I spent a total of 55 minutes on the date of service in preparation, delivery, and documentation of the care provided to this patient, excluding any time spent in the performance of separately billed services. Maria Fernanda Maier PA-C Department of Cardiology, [facility] This chart was completed in part utilizing Speech Voice Recognition Software. Grammatical errors, random word insertions, pronoun errors, and incomplete sentences are an occasional consequence of this system due to software limitations, ambient noise, and hardware issues. Any formal questions or concerns about the content, text, or information contained within the body of this dictation should be directly addressed to the provider for clarification. Supervising Physician Co-Signing Physician Notes I have personally performed a history and physical examination on the patient. I have reviewed the advance practitioner's documentation, and I agree with, and take responsibility for the plan of care. 64-year-old male with paroxysmal atrial fibrillation, gastroenteritis and hypomagnesemia. CHADS2-Vasc =2 (HTN, DM). Evidence of asymptomatic tachybradycardia syndrome per review of telemetry. Avoid AV saeed blocking agents at this time. Stroke risk discussed. Patient agreeable to initiation of anticoagulation with Eliquis 5 mg twice daily. Outpatient cardiology follow-up in 4 to 6 weeks. Kwame Doll DO [facility] I spent a total of 35 minutes on the date of service in preparation, delivery, and documentation of the care provided to this patient, excluding any time spent in the performance of separately billed services. History of Present Illness Reason for Consultation: Afib RVR in setting of SBO Requesting Physician: Bethany Doyleist Attending Physician: Dr. Doll History of Present Illness Patient is a 64 year old male who presented to [facility] with abdominal pain. Diagnosed with possible SBO vs gastroenteritis. Admitted for further evaluation and treatment. Symptoms improved with conservative med management. Overnight patient developed brief episodes of PAF with RVR. He has a history of PAF, initially diagnosed October 2023 in setting of small bowel obstruction. At that time, patient was hesitant about being on anticoagulation due to his legal blindness and thoughts that it was an isolated event. He was to be discharged on metoprolol at the time, but did not get prescription filled. At cardio f/u in Dec 2023, patient was in sinus bradycardia with HRs in the 50's. Metoprolol not resumed due to bradycardia. Outpatient ZIO In October 2023 revealed Normal sinus rhythm with paroxysmal A-fib mildly elevated ventricular rate at 1% burden. Average HR around 64. Due to low burden and low CHADSVASC score, he was not started on anticoagulation. During admission, he was found to have episodes of PAF. Magnesium was low and supplemented. He was treated with several doses of IV metoprolol Episodes of afib lasting several minutes to 1 hour at a time. At time of consult this morning, afib episodes improved. Luis Angel did have several episodes of asymptomatic bradycardia in the 40's. No pauses He denies chest pain, SOB, palpitations. Abdominal pain improved He had 2 BMs this morning. Diet is advancing. History includes 1. Renal transplant 2004 donor, 2012 living donor. Pancreatic transplant 2004 2. Type 1 diabetes mellitus 3. Cardiac catheterization 2009 with minor nonobstructive coronary disease 4 Dyslipidemia 5. PAF initially diagnosed in October 2023 in setting of SBO, resolved without recurrence. No anticoagulation initiated. Allergies Allergy/AdvReac Type Severity Reaction Status Date / Time mycophenolate mofetil Allergy Severe KIDNEY Verified 10/08/24 23:19 [From CellCept] FAILED cephalexin Allergy Mild RASH Verified 07/13/25 23:19 Penicillins Allergy Mild RASH Verified 10/08/24 23:19 Home Medications Medication Instructions Recorded Confirmed Type furosemide 20 mg tablet 20 mg PO QAM 01/16/18 01/21/25 History mycophenolate sodium 360 mg 360 mg PO TID 01/16/18 01/21/25 History tablet,delayed release (Myfortic) sertraline 100 mg tablet 150 mg PO QAM 01/16/18 01/21/25 History aspirin 81 mg tablet,delayed 81 mg PO QAM 07/19/20 01/21/25 History release cyanocobalamin (vitamin B-12) 1,000 mcg PO QAM 07/19/20 01/21/25 History 1,000 mcg tablet (Vitamin B-12) prednisone 5 mg tablet 5 mg PO QAM 07/19/20 01/21/25 History tacrolimus 0.5 mg capsule, 0.5 mg PO DIRECTED 07/19/20 01/21/25 History immediate-release (Prograf) insulin degludec 100 unit/mL (3 8 unit subcut HS 01/07/22 01/21/25 History mL) subcutaneous pen (Tresiba FlexTouch U-100 insulin) atorvastatin 20 mg tablet 20 mg PO QAM 11/05/23 01/21/25 History metformin 500 mg tablet,extended 500 mg PO DIRECTED 11/05/23 01/21/25 History release 24 hr tamsulosin 0.4 mg capsule 0.4 mg PO QAM #90 caps 02/28/24 01/21/25 Rx cholecalciferol (vitamin D3) 50 50 mcg PO BID 10/08/24 01/21/25 History mcg (2,000 unit) capsule (Vitamin D3) insulin aspart U-100 100 unit/mL 0 sliding scale dose subcut 10/08/24 01/21/25 History (3 mL) subcutaneous pen DIRECTED tacrolimus 1 mg capsule, 1 mg PO 2XWK 10/08/24 01/21/25 History immediate-release (Prograf) acetaminophen 325 mg tablet 650 mg (2 x 325 mg) PO QID PRN 10/10/24 01/21/25 Rx pain #30 tabs apixaban 5 mg tablet (Eliquis) 5 mg PO BID #60 tabs 01/22/25 Rx polyethylene glycol 3350 17 gram 17 g PO DAILY #30 ea 01/22/25 Rx oral powder packet (Miralax) Patient History Medical History (Updated 01/22/25 @ 15:14 by Maria Fernanda Maier PA-C) Immunocompromised Hypertension History of hemodialysis Surgical History History of pancreas transplant History of kidney transplant History of hip replacement History of eye surgery History of cholecystectomy History of colonoscopy Family History Other Cancer Diabetes Heart disease Hypertension Seizure Social History Smoking Status: Never smoker Second Hand Exposure: No; Do You Dip or Chew Tobacco: No; Hx Alcohol Use: No Hx Substance Use: No Preferred Language: Georgian Communication Ability: Effective Communication Ability Comment: legally blind Traffic Signal Technician Required: No Beliefs That Will Affect Care: None marital status: Current Living Situation: Spouse Current Living Situation Comment: one story current occupational status: disabled Feels Safe at Home: Yes Assistive Devices: Cane, CPAP and Walker Review of Systems Review of Systems: All systems reviewed & are unremarkable except as noted in HPI & below Physical Exam Constitutional: WD/WN, vitals as above Neck: trachea midline, no thyromegaly Respiratory: normal respiratory effort, lungs clear to auscultation Cardiovascular: Rate/Rhythm: regular rate and regular rhythm Heart Sounds: no murmur Vessels: no JVD Extremities: no edema Gastrointestinal (Abdomen): normal bowel sounds, soft, nontender, no hepatosplenomegaly Musculoskeletal: no cyanosis or clubbing, extremities motor strength 5/5 Neurologic: PERRL, EOMI, accommodation nl, no face palsy, no dysarthria Results & Data Vital Signs (Past 12 Hours) Vital Signs Temp Pulse Pulse Resp BP BP Pulse Ox 01/22/25 07:50 36.5 C 57 L 16 175/73 H 98 01/22/25 07:38 57 L 01/22/25 03:55 67 17 97 01/22/25 02:25 36.8 C 58 L 18 95 01/22/25 00:22 65 133/67 01/22/25 00:06 71 122/67 01/21/25 22:24 36.5 C 66 18 175/81 H 97 01/21/25 22:03 64 O2 Del Method FiO2 01/22/25 07:50 Room Air 01/22/25 07:38 01/22/25 03:55 21 01/22/25 02:25 Room Air 01/22/25 00:22 01/22/25 00:06 01/21/25 22:24 Room Air 01/21/25 22:03 Laboratory Results Cardiac Enzymes 01/22/25 01/22/25 Range/Units 00:03 10:22 Troponin I High Sens 14.2 18.0 (0-20) pg/ml CBC 01/22/25 Range/Units 10:22 WBC 4.66 L (4.8-10.8) K/ul RBC 3.93 L (4.70-6.10) M/uL Hgb 12.2 L (14.0-18.0) g/dl Hct 37.6 L (42.0-52.0) % Plt Count 140 (130-400) K/uL Comprehensive Metabolic Panel 01/22/25 Range/Units 10:22 Sodium 140 (136-145) mmol/L Potassium 4.4 (3.5-5.1) mmol/L Chloride 109 H (98-107) mmol/L Carbon Dioxide 25 (21-32) mmol/L BUN 20 (6-23) mg/dl Creatinine 0.92 (0.6-1.4) mg/dl Glucose 218 H (70-99(Fasting)) mg/dl Calcium 8.6 D (8.6-10.3) mg/dl Intake and Output 01/22/25 01/22/25 01/22/25 06:59 14:59 22:59 Intake Total 1000 / 3995 600 / 600 Balance 1000 / 3645 600 / 600 Intake: IV 1000 / 3995 600 / 600 Sodium Chloride 0.9% 1,000 ml @ 1000 / 2000 600 / 600 125 mls/hr IV .Q8H [facility] Rx#: [id number] Diagnostic Findings Telemetry reviewed: Currently NSR in the 50-60's. Overnight he had episodes of PAF with RVR lasting several minutes at a time. Echo reviewed: Compared with prior study no significant change. LVEF 60 to 65%. Left atrial size is normal. Aortic sclerosis mild without significant aortic valvular stenosis. Mild AI. Mild MR. Mild TR. No pulmonary hypertension. Chest X-Ray 01/21/25 06:59 FINDINGS: Pulmonary Parenchyma: Bilateral prominent interstitial septa, with prominent bronchovascular markings, could be suggestive of parenchymal congestion. There is no evidence of consolidation, collapse, or focal opacities. No pulmonary nodules are identified. There is no evidence of pleural effusion or pleural thickening. Heart and Mediastinum: There is mild cardiomegaly, likely related to AP projection. There is no mediastinal widening or masses. No hilar or mediastinal lymphadenopathy. Bony Thorax: The bony thorax appears intact, without fractures or deformities. Soft Tissues: The soft tissues overlying the chest wall are unremarkable. The previously placed NG tube is not seen in the current study (removed). A left subclavian vein stent is present and stable. External ECG leads are present. IMPRESSION: 1. Bilateral prominent interstitial septa, with prominent bronchovascular markings, could be suggestive of parenchymal congestion. Unchanged. 2. There is no evidence of consolidation, collapse, or focal opacities. No pulmonary nodules are identified. Electronically signed by Luiz Asher 01-21-2025 09:07 AM Abdomen/Pelvis CT 01/21/25 07:06 EXAM: CT abd pelvis wo con CLINICAL HISTORY: Severe N/V and pain. h/o kidney and pancreas trauma TECHNIQUE: Non-contrast CT of the abdomen and pelvis was performed using the following protocol: axial images, as well as reconstructed coronal and sagittal images. One of the following dose reduction techniques was utilized for this examination: automated exposure control, adjustment of the mA and/or kV according to patient size, and use of iterative reconstruction. COMPARISON: 11/05/2023 FINDINGS: Abdomen: Liver: The liver is normal in size, shape, and density. No focal lesions, cysts, or masses are identified. Gallbladder and Biliary System: The gallbladder has been surgically removed. The common bile duct is prominent. No stones or masses are identified. Pancreas: There is atrophic pancreatic tissue. No masses are identified. Transplanted pancreatic tissue is noted in the right iliac fossa. No masses are identified. Spleen: The spleen is normal in size, shape, and density. No splenic lesions or masses are identified. Appendix: There is no evidence of appendiceal abscess or perforation. Kidneys and Adrenal Glands: There are atrophic changes of both kidneys with profuse vascular calcifications. No masses are identified. There is a transplanted kidney in the left iliac region. No masses or hydronephrosis are present. A minute stone measuring 4 mm is noted. Abdominal Aorta and Vessels: There is diffuse aortic and vascular calcific atherosclerosis. Pelvis: Urinary Bladder: The urinary bladder is normal in contour and wall thickness. No intraluminal lesions are identified. Prostate: The prostate is normal in size and contour. No masses or abnormal thickening are identified. Seminal Vesicles: The seminal vesicles have a normal appearance without abnormal enlargement or mass. Peritoneal and Retroperitoneal Structures: No free fluid or abnormal fluid collections are identified within the abdomen or pelvis. No lymphadenopathy is noted. Bowel: There is mild distension of small bowel loops. No wall thickening or masses are detected. Bones and Soft Tissues: The pelvic bones and soft tissues are unremarkable. No fractures or abnormal masses are identified. A right hip arthroplasty is noted. IMPRESSION: 1. No significant changes compared to the prior study dated 11/05/2023. 2. A small stone, 4 mm, in the transplanted kidney. Stable. 3. Mild distension of small bowel loops. No wall thickening or masses are detected. Clinical context is to be correlated, and further follow-up is advised. 4. No other significant changes or acute abnormalities detected. Electronically signed by Luiz Asher 01-21-2025 08:30 AM KUB X-Ray 01/22/25 07:00 KUB HISTORY: sbo COMPARISON STUDY: 01/21/2025 FINDINGS: There is moderate retained stool. No bowel distention seen by plain film. No gross free air. IMPRESSION: No bowel distention seen. ACT 112: Negative or not required by law. The above report was generated using voice recognition software. It may contain grammatical, syntax or spelling errors. Electronically signed by: Rodrigo Garsia M.D. 01/22/2025 11:52 AM Medications Administered Current Inpatient Medications Acetaminophen (Acetaminophen 325 Mg Tab) 650 mg PO QID PRN PRN Reason: pain Stop: 02/20/25 11:12 Aspirin (Aspirin 81 Mg Ectab) [facility] [place] Stop: 02/21/25 08:59 Last Admin: 01/22/25 09:31 Dose: 81 mg Atorvastatin Calcium (Atorvastatin 20 Mg Tab) 20 [facility] [place] Stop: 02/21/25 08:59 Last Admin: 01/22/25 09:32 Dose: 20 mg Cyanocobalamin (Cyanocobalamin (B-12) 500 Mcg Tablet) 1,000 mcg [facility] [place] Stop: 02/20/25 11:44 Last Admin: 01/22/25 09:31 Dose: 1,000 mcg Dextrose (Dextrose 50% 50 Ml Syringe) 25 - 50 ml IV UD PRN; Protocol PRN Reason: Hypoglycemia Protocol Stop: 02/20/25 09:22 Enoxaparin Sodium (Enoxaparin Inj 40 Mg/0.4 Ml Syr) 40 mg SQ Q24H PENNY Stop: 02/20/25 11:44 Last Admin: 01/22/25 14:18 Dose: Not Given Furosemide (Furosemide 20 Mg Tab) 20 mg PO QAM [facility]ENNY Stop: 02/21/25 08:59 Last Admin: 01/22/25 09:32 Dose: 20 mg Glucagon (Glucagon For Inj 1 Mg Vial) 1 mg SQ UD PRN; Protocol PRN Reason: Hypoglycemia Protocol Stop: 02/20/25 09:22 Glucose (Glucose 40% Gel 15 Gm Tube) 15 - 30 gm PO UD PRN; Protocol PRN Reason: Hypoglycemia Protocol Stop: 02/20/25 09:22 Glucose (Glucose 10 Tab/Tube) 4 - 8 tab PO UD PRN; Protocol PRN Reason: Hypoglycemia Protocol Stop: 02/20/25 09:22 Meropenem 500 mg/ Syringe 10 mls @ 2 mls/min IV Q6H PENNY; Protocol Stop: 01/23/25 16:59 Last Admin: 01/22/25 14:11 Dose: 2 mls/min Insulin Aspart (Insulin Aspart Per Unit Charge) 0 units SC Q6 PENNY Stop: 02/20/25 11:59 Last Admin: 01/22/25 14:13 Dose: 13 units Insulin Glargine (Lantus Per Unit Charge) 4 units SQ HS PENNY Stop: 02/20/25 20:59 Last Admin: 01/21/25 21:12 Dose: 4 units Labetalol HCl (Labetalol Hcl Iv 5 Mg/Ml 20ml) 10 mg IV Q8H PRN PRN Reason: SBP > 180 Stop: 02/20/25 10:14 Miscellaneous (Carbohydrates For Hypoglycemia ) 15 - 30 gm PO UD PRN PRN Reason: Hypoglycemia Protocol Stop: 02/20/25 09:22 Mycophenolate Sodium (Mycophenolate Sodium 180 Mg Tab) 360 mg PO TID [facility] Stop: 02/20/25 13:59 Last Admin: 01/22/25 14:14 Dose: 360 mg Ondansetron HCl (Ondansetron Inj 2 Mg/Ml 2 Ml Vial) 4 mg IV Q6H PRN PRN Reason: Nausea Stop: 02/20/25 11:12 Prednisone (Prednisone 5 Mg Tab) 5 mg PO QAM [facility] Stop: 02/20/25 11:44 Last Admin: 01/22/25 09:32 Dose: 5 mg Sertraline HCl (Sertraline Hcl 50 Mg Tablet) [facility] [place] Stop: 02/20/25 11:44 Last Admin: 01/22/25 09:33 Dose: 150 mg Tacrolimus (Tacrolimus 0.5 Mg Cap) 0.5 mg PO SuTuWeThSa@0900 [facility] Stop: 02/22/25 08:59 Tacrolimus (Tacrolimus 1 Mg Cap) 1 mg PO MoFr@0900 [facility] Stop: 02/21/25 08:59 Last Admin: 01/22/25 09:32 Dose: 1 mg Tacrolimus (Tacrolimus 0.5 Mg Cap) 0.5 mg PO MoFr@2100 [facility] Stop: 02/21/25 20:59 Tamsulosin HCl (Tamsulosin Hcl 0.4 Mg Cap) 0.4 mg [facility] [place] Stop: 02/21/25 08:59 Last Admin: 01/22/25 09:31 Dose: 0.4 mg Vitamin D (Cholecalciferol 25 Mcg (1000 Units) Tab) 50 mcg PO BID [facility] Stop: 02/20/25 20:59 Last Admin: 01/22/25 09:30 Dose: 50 mcg PG Care Time/CCT Total # of Minutes Spent Total Time Spent with Patient: Total time spent is greater than 50% in coordination of care (as documented) at patient's floor/unit and/or counseling patient: 55 minutes Coding Level of Care Code 40033 IN/OBS CONSULT LVL 5,80M Diagnoses Gastroenteritis K52.9 Paroxysmal atrial fibrillation I48.0 Hypomagnesemia E83.42
--- NOTE | 2025-01-22 09:55 | XCELERA ---
[id number] [id number]
[2025-01-22 10:56] LABS: Hematocrit (blood only) 37.6 % (42.0-52.0); Hemoglobin 12.2 g/dl (14.0-18.0); Mean Corpuscular Hemoglobin 31.0 pg (25.0-34.0); Mean Corpuscular Volume 95.7 fL (80.0-100.0); Platelet Count 140 K/uL (130-400); RDW Standard Deviation 50.4 fL (36.4-46.3); Red Blood Count 3.93 M/uL (4.70-6.10); White Blood Count 4.66 K/ul (4.8-10.8)
[2025-01-22 11:11] LABS: Anion Gap 6.0 (3-11); Blood Urea Nitrogen 20.0 mg/dl (6-23); Calcium 8.6 mg/dl (8.6-10.3); Carbon Dioxide 25.0 mmol/L (21-32); Chloride 109.0 mmol/L (98-107); Creatinine Clr Calc Pharmacy 73.2 ml/min; Glucose 218.0 mg/dl (70-99(Fasting)); Magnesium 2.1 mg/dl (1.7-2.4); Potassium 4.4 mmol/L (3.5-5.1); Sodium 140.0 mmol/L (136-145)
[2025-01-22 11:49] VITALS: BP 177/67; RESP 20
--- NOTE | 2025-01-22 11:54 | XRay Report ---
KUB HISTORY: sbo COMPARISON STUDY: 01/21/2025 FINDINGS: There is moderate retained stool. No bowel distention seen by plain film. No gross free air . IMPRESSION: No bowel distention seen. ACT 112: Negative or not required by law. The above report was generated using voice recognition software. It may contain grammatical, syntax o r spelling errors. Electronically signed by: Rodrigo Garsia M.D. 01/22/2025 11:52 AM
--- NOTE | 2025-01-22 13:05 | Discharge Summary ---
Discharge Summary Date of Service January 22, 2025 Principal Dx & Hospital Course #1 = Principal Diagnosis (1) Small bowel obstruction: (2) Diabetes mellitus type 1: (3) History of kidney transplant: (4) History of pancreas transplant: Plan Mr. 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 Patient with history of SBO in 2023. Suspect early SBO given CT imaging. Patient improved with conservative management. Patient with flatus and large bm this morning. No gaseous distention on imaging. Infectious work up negative. Patient with episodic tachycardia overnight, prompting Cards consult. It was recommended given PAF during illness and as outpatient. Patient started on eliquis. patient with 30day coupon, but copay will be 113$. Patient will explore options and does not want to consider coumadin. On day of discharge, patient was ambulating independently, eating well, and denying any other concerns. #PAF started on eliquis avoid AV roseanne iso borderline TBS cards follow up #Small bowl dilation c/f possible SBO #Abdominal pain #NV lactate 4.1 on admission, sudden onset abdominal pain likely early SBO iso adhesions Small bowel dilatation on CT this am N/V improved s/p 1 L IVF lactate downtrended Improved with conservative management KUB without small bowel distention this am tolerated diet #Leukocytosis resolved #immunocompromised UA negative, CXR unrevealing, no infectious symptoms suspect possibly iso acute illness and hemoconcentration febrile x1, resolved, infectious workup negative, no diarrhea #Type 1 diabetes #Failed pancreas transplant on home trulicity 8 U qhs and sliding scale #S/p kidney transplant renal function stable at baseline prograf level pending reports followed with transplant provider in last few months, regimen has been stable Continue transplant medications #Hypertension hold home lasix for now, resume in next 24-48 hours labetolol prn for bp >180 consider addition of coreg #Hyperlipidemia On statin #BPH On Flomax #Prior CVA Mild CAD On aspirin, and statin #Depression On Zoloft #legal blindness seeing precautions per nursing #Anemia of chronic kidney disease Currently hemoglobin 14, likely concentrated, anticipated possible decrease Notes For Next Care Provider Medication Changes From Visit started eliquis bid Admission HPI Per Admitting Provider Mr. 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 Patient with history of SBO in 2023. Patient reports abrupt nausea and vomiting this am with epigastric discomfort. Patient states he felt well and in normal state of health until early this am. He denies fevers, chills, diarrhea,constipation, or changes in routine diet. Patient reports abdominal pain is under better control s/p fluids and meds administered by ED. Patient states that his last BM was last evening, which was routine for him. He feels he was eating and drinking as per usual. present at bedside. In the ED, vitals were notable for BP of 160-170s, HR of 80-90s and O2 sat of 100 on RA Imaging revealed Mild distension of small bowel loops. No wall thickening or masses are detected. Clinical context is to be correlated, and further follow-up is advised. EKG withQTC at 478, NSR ED interventions: fentanyl, droperidol, zofran IVF Patient to be admitted to med/tele for further evaluation and management of abdominal pain Admission Exam Per Admitting Provider GENERAL APPEARANCE: AxOx3, uncomfortable appearing but no acute distress. HEENT: NC, AT. MMM. EOMI, clear conjunctiva, oropharynx clear. NECK: Supple without lymphadenopathy. No stiffness or restricted ROM. HEART: Normal rate and regular rhythm, GARCÍA + LUNGS: CTAB, moving air well. No crackles or wheezes are heard. ABDOMEN: multiple surgical incisions noted, protuberant, nontender, BS+ BACK: No CVAT, no obvious deformity. EXTREMITIES: Without cyanosis, clubbing or edema. NEUROLOGICAL: Grossly nonfocal. Alert and oriented, moving all 4 extremities. CN not formally tested but appear grossly intact. Skin: Warm and dry without any rash. Discharge Exam Constitutional WD/WN, vitals as above Respiratory normal respiratory effort, lungs clear to auscultation Cardiovascular RRR, no murmur, no edema Musculoskeletal no cyanosis or clubbing, extremities motor strength 5/5 Updated Medication List Medication Instructions Recorded Confirmed Type furosemide 20 mg tablet 20 mg PO QAM 01/16/18 01/21/25 History mycophenolate sodium 360 mg 360 mg PO TID 01/16/18 01/21/25 History tablet,delayed release (Myfortic) sertraline 100 mg tablet 150 mg PO QAM 01/16/18 01/21/25 History aspirin 81 mg tablet,delayed 81 mg PO QAM 07/19/20 01/21/25 History release cyanocobalamin (vitamin B-12) 1,000 mcg PO QAM 07/19/20 01/21/25 History 1,000 mcg tablet (Vitamin B-12) prednisone 5 mg tablet 5 mg PO QAM 07/19/20 01/21/25 History tacrolimus 0.5 mg capsule, 0.5 mg PO DIRECTED 07/19/20 01/21/25 History immediate-release (Prograf) insulin degludec 100 unit/mL (3 8 unit subcut HS 01/07/22 01/21/25 History mL) subcutaneous pen (Tresiba FlexTouch U-100 insulin) atorvastatin 20 mg tablet 20 mg PO QAM 11/05/23 01/21/25 History metformin 500 mg tablet,extended 500 mg PO DIRECTED 11/05/23 01/21/25 History release 24 hr tamsulosin 0.4 mg capsule 0.4 mg PO QAM #90 caps 02/28/24 01/21/25 Rx cholecalciferol (vitamin D3) 50 50 mcg PO BID 10/08/24 01/21/25 History mcg (2,000 unit) capsule (Vitamin D3) insulin aspart U-100 100 unit/mL 0 sliding scale dose subcut 10/08/24 01/21/25 History (3 mL) subcutaneous pen DIRECTED tacrolimus 1 mg capsule, 1 mg PO 2XWK 10/08/24 01/21/25 History immediate-release (Prograf) acetaminophen 325 mg tablet 650 mg (2 x 325 mg) PO QID PRN 10/10/24 01/21/25 Rx pain #30 tabs apixaban 5 mg tablet (Eliquis) 5 mg PO BID #60 tabs 01/22/25 Rx polyethylene glycol 3350 17 gram 17 g PO DAILY #30 ea 01/22/25 Rx oral powder packet (Miralax) Hospital Stay Data Consultations 01/21/25 09:03 ED Decision to Admit Stat 01/22/25 08:00 Consult Cardiology Routine Diagnostic Imagining Performed 01/21/25 07:06 CT Abd and Pelvis [CT abd pelvis wo con] Stat Pending Results Patient Have Any Pending Studies at Discharge: No Discharge Instructions Given to Patient (Per Discharging Provider) A bowel blockage, also called an obstruction, can prevent gas, fluids, or food from moving through the intestines normally. It can cause constipation and, rarely, diarrhea. You may have pain, nausea, vomiting, and cramping. Most of the time, complete blockages require a stay in the hospital and possibly surgery. But if your bowel is only partly blocked, your doctor may tell you to wait until it clears on its own and you are able to pass gas and stool. If so, there are things you can do at home to help make you feel better. If you have had surgery for a bowel blockage, there are things you can do at home to make sure you heal well. You can also make some changes to keep your bowel from becoming blocked again. Follow-up care is a taylor part of your treatment and safety.Be sure to make and go to all appointments, and call your doctor if you are having problems. It's also a good idea to know your test results and keep a list of the medicines you take. What can you do to prevent a bowel obstruction? Bowel blockage (obstruction) may be prevented by doing several things. Try eating smaller meals more often throughout the day. Chew your food very well. Try to chew each bite until it is liquid. Avoid high-fiber foods and raw fruits and vegetables. These may cause another blockage. Drinking plenty of water may help. You should check with your doctor before eating whole-grain products or using a fiber supplement such as Citrucel or Metamucil. Try to get at least 30 minutes of physical activity on most days of the week. Walking is a good choice. KeyDietaryRecommendation * Low-FiberDiet: * ReduceInsolubleFiber :Limitfoodshighininsolublefiber,suchaswholegrains,nuts,seeds,and rawfruitsandvegetables.Instead,focusonsolublefibersourceslikeoatsand cookedfruitsandvegetables,whichareeasiertodigest. * CookedandSoftFoods:Optforwell- cookedvegetablesandtendermeats.Cookinghelpsbreakdowntoughfibers,jemima ingthemeasiertodigest. * MealFrequencyandPortionSize: * Smaller,FrequentMeals :Eatsmallermealsmorefrequentlythroughouttheday(4-6times)ratherthan largemeals.Thisapproa chhelpsreducetheriskofundigestedfoodcausingblockages * AvoidOvereating :Stopeatingbeforefeelingfulltopreventpressureonthedigestivesystem * Hydration: * DrinkPlentyofFluids :Aimfor8-10cupsoffluidsdaily,includingwater,broth,andjuices.Stayi nghydratedhelpskeepthedigestivesystemfunctioningproperly. * SipLiquids :Insteadofdrinkinglargeamountsatonce,sipfluidsthroughoutthedayto avoidoverwhelmingthedigestivesystem. * FoodPreparation: * ChewThoroughly :Takeyourtimetochewfoodwell,asthisaidsdigestionandreducestheris kofblockages. * AvoidToughFoods:Stee rclearofstringyfruits(likepineappleandrhubarb)andfibrousvegetables (likeceleryandbeansprouts)thatcanbedifficulttodigest Seek care immediately if: * You have severe abdominal pain that does not get better. * Your heart is beating faster than normal for you. * You have a fever. Call your doctor if: * You have nausea and are vomiting. * Your abdomen is enlarged. * You cannot pass a bowel movement or gas. * You lose weight without trying. * You have blood in your bowel movement. * You have questions or concerns about your condition or care. Total Time Total Time Spent Total Time Spent (In Minutes): 55
--- NOTE | 2025-01-22 13:51 | Electrocardiogram Report ---
Test Reason : Blood Pressure : */* mmHG Vent. Rate : 138 BPM Atrial Rate : 65 BPM P-R Int : * ms QRS Dur : 80 ms QT Int : 204 ms P-R-T Axes : * 23 233 degrees QTcB Int : 309 ms Atrial fibrillation with aberrantly conducted beats and PVCs Abnormal ECG When compared with ECG of 21-Jan-2025 06:58, ST now depressed in Inferior leads ST now depressed in Anterolateral leads T wave inversion now evident in Inferior leads T wave inversion now evident in Anterolateral leads Confirmed by Silvino Cook ([id number]) on 01/22/2025 1:51:54 PM Referred By: REFERRED SELF Confirmed By: Silvino Cook
--- NOTE | 2025-01-22 14:10 | Electrocardiogram Report ---
Test Reason : Blood Pressure : */* mmHG Vent. Rate : 65 BPM Atrial Rate : 57 BPM P-R Int : 140 ms QRS Dur : 78 ms QT Int : 458 ms P-R-T Axes : 63 23 61 degrees QTcB Int : 476 ms Sinus bradycardia with frequent Premature ventricular complexes Otherwise normal ECG When compared with ECG of 21-Jan-2025 23:44, (unconfirmed) ST no longer depressed in Inferior leads ST no longer depressed in Anterolateral leads T wave inversion no longer evident in Inferior leads T wave inversion no longer evident in Anterolateral leads Confirmed by Silvino Cook ([id number]) on 01/22/2025 2:10:40 PM Referred By: REFERRED SELF Confirmed By: Silvino Cook
[2025-01-22] MEDS: INFLUENZA VACC TS2025-26(6m+)/PF (IIV3) 0.5mL Syr IM ONE (14:12)
--- NOTE | 2025-01-22 14:12 | Electrocardiogram Report ---
Test Reason : Blood Pressure : */* mmHG Vent. Rate : 69 BPM Atrial Rate : 60 BPM P-R Int : 136 ms QRS Dur : 76 ms QT Int : 428 ms P-R-T Axes : 57 33 64 degrees QTcB Int : 458 ms Sinus rhythm with Premature atrial complexes with Aberrant conduction Otherwise normal ECG When compared with ECG of 22-Jan-2025 02:52, (unconfirmed) Premature ventricular complexes are no longer Present Aberrant conduction is now Present Confirmed by Silvino Cook ([id number] on 01/22/2025 2:11:52 PM Referred By: REFERRED SELF Confirmed By: Silvino Cook
[2025-01-22 15:42] VITALS: PULSE 62
[2025-01-22] MEDS ORDERED: TACROLIMUS 0.5 MG CAP PO SCH (21:00)
[2025-01-23] MEDS ORDERED: TACROLIMUS 0.5 MG CAP PO SCH (09:00)
== END 2025-01-22 16:13 | disposition home health service (06) | DRG 389 ==
LOC: ED 06:51 → EDINP 09:22 → 2W 13:20